=== PATIENT | female | born 1935 | race Caucasian/White ===

== ENCOUNTER → 2016-08-11 | Outpatient (CLI) | payer OTHER ==
[~2016-08-11] MED LIST: AMLO-110 PO; ASPI81TA28 PO; CALC-388 PO; CALC-51 PO; CALC1TAB10; CAPSCRE3 TD; CHOL1000 PO; CHOL100010 PO; CYAN100020 PO; FLUT0.15 NAE; HYDR25TA4 PO; LEVO75TA5 PO; METO50TA17 PO; NEBI10TA2 PO; OMEG10007 PO; POTA20TA16 PO; TRAM-10 PO; TRIA37.5 PO
[2016-08-11 17:29] LABS: URINE APPEARANCE CLEAR (CLEAR); URINE BILIRUBIN NEG (NEG); URINE COLOR YELLOW; URINE EPITHELIAL CELL AUTO >30 /lpf (0-5); URINE NITRITE NEG (NEG); URINE SPECIFIC GRAVITY 1.009 (1.000-1.030); UROBILINOGEN NEG (NEG)
[2016-08-11 17:32] LABS: MANUAL MICROSCOPIC REQUIRED? NO; REVIEW REQ? NO
[2016-08-11 17:37] LABS: BLOOD UREA NITROGEN 23 mg/dl (7-18); BUN/CREATININE RATIO 16.3 (10-20); CARBON DIOXIDE 27 mmol/L (21-32); CHLORIDE 101 mmol/L (98-107); GLUCOSE 91 mg/dl (70-99); MAGNESIUM 1.6 mg/dl (1.8-2.4); PHOSPHORUS 2.7 mg/dl (2.5-4.9); POTASSIUM 3.4 mmol/L (3.5-5.1); SODIUM 139 mmol/L (136-145)
[2016-08-11 17:42] LABS: URINE PROTIEN/CREAT RATIO 0.1 (0-0.2); URINE TOTAL PROTEIN 6.8 mg/dl (0-11.9)
== END | disposition home or self-care (01) ==
LOC: C.LABPBG 11:36
PROVIDERS: ATTEND Internal Medicine Nephrology
DX: I12.9 Hypertensive chronic kidney disease with stage 1 through stage 4 chronic kidney disease, or unspecified chronic kidney disease (principal); N18.3 Chronic kidney disease, stage 3 (moderate); E55.9 Vitamin D deficiency, unspecified; R60.9 Edema, unspecified; E87.6 Hypokalemia

== ENCOUNTER 2016-08-15 16:38 | Inpatient (IN) | payer OTHER ==
[~2016-08-15] VITALS: Ht 157.5 cm; Wt 74.0 kg
[~2016-08-15 16:38] MED LIST changes: -ASPI81TA28 PO; -CALC-388 PO; -CALC1TAB10; -CAPSCRE3 TD; -CHOL1000 PO; -CYAN100020 PO; -FLUT0.15 NAE; -METO50TA17 PO; -POTA20TA16 PO; -TRIA37.5 PO
--- NOTE | 2016-08-15 17:04 | EMERGENCY ROOM VISIT NOTE ---
History Report prepared by Annmarie: Mindi Fernandez Under the Supervision of: Dr. Sammi Conteh M.D. First contact with patient: 16:50 Chief Complaint: CARDIAC ASSESSMENT Stated Complaint: TACHYCARDIA Nursing Triage Summary: pt sent over from PMD office for SVT pt refused ambulance and came by car. pt stated she was having dizziness upon arrival to ED no SVt History of Present Illness The patient is a 81 year old female who presents to the Emergency Room per PCP referral to be evaluated for an episode tachycardia. The patient was at Dr. Lj Hernandez's office this afternoon for a routine appointment. The patient was asymptomatic until she was getting ready to leave his office and developed some dizziness. She had an EKG which revealed possible SVT and she was referred to the ED. Currently, she complains of feeling "fuzzy." She is not on a beta veto. A few days ago she noticed a racing heart rate which resolved after some time of resting. She does not have a history of blood clots or cancer. Denies chest pain, shortness of breath, or other complaints. Per patient's , she has had some post-nasal drip recently and gagged up some mucous the other day but she has not been ill otherwise. She denies recent travel, surgery or immobilization. She is not a smoker. Source of History: patient Onset: this afternoon Position: other (cardiac) Quality: other (tachycardia) Timing: other (persistent) Associated Symptoms: No SOB, No chest pain Note: Other symptoms: dizziness, "fuzzy" Review of Systems See HPI for pertinent positives & negatives. A total of 10 systems reviewed and were otherwise negative. Past Medical & Surgical Medical Problems: (1) Chronic kidney disease (CKD) (2) Hypertension (3) SVT (supraventricular tachycardia) Family History Diabetes mellitus Heart disease Hypertension Kidney disease Social History Smoking Status: Never Smoker Alcohol Use: occasionally Marital Status: Housing Status: lives with significant other Occupation Status: employed Current/Historical Medications Scheduled Aspirin (Aspirin Ec), 81 MG PO DAILY Calcium Carbonate-Vitamin D (Calcium + D3 600-200 mg-Unit), 1 TAB PO BID Capsaicin (Zostrix Arthritis Pain Re), 1 APPLN TD QID Cholecalciferol (Vitamin D3), 1,000 UNITS PO DAILY Cyanocobalamin (Vitamin B12), 1,000 MCG PO DAILY Fish Oil ([place]-3), 1,200 MG PO DAILY Fluticasone Propionate (Nasal) (Flonase Allergy Relief), 2 SPRAYS MISHEL DAILY Levothyroxine Sodium (Levothyroxine Sodium), 1 TAB PO DAILY Metoprolol Tartrate (Metoprolol Tartrate), 50 MG PO BID Scheduled PRN Tramadol (Ultram), 1 TAB PO AC PRN for UNDECIDED Allergies Coded Allergies: Acetaminophen (Verified Adverse Reaction, Intermediate, SHAKING ANDVOMITTING, 08/15/16) Oxycodone (Verified Adverse Reaction, Intermediate, SHAKING ANDVOMITTING, 08/15/16) Propoxyphene (Verified Adverse Reaction, Unknown, STRIP STAMP STRAIGHTENER REACTION, 01/15/16) Physical Exam Vital Signs Date Time Temp Pulse Resp B/P Pulse Ox O2 Delivery O2 Flow Rate FiO2 08/15/16 19:02 81 16 148/92 97 Room Air 08/15/16 18:48 78 18 160/81 97 Room Air 08/15/16 18:00 76 18 157/82 97 Room Air 08/15/16 17:36 75 18 162/94 97 Room Air 08/15/16 17:17 117 18 178/83 98 Room Air 08/15/16 17:16 117 178/83 08/15/16 17:13 171 08/15/16 16:56 112 08/15/16 16:52 36.5 109 20 192/94 97 Physical Exam Vital signs reviewed. General: Well-appearing 81 year old female, in no significant distress. HEENT: No scleral icterus, PERRLA, neck supple. Atraumatic. Cardiovascular: Slightly tachycardic rate and regular rhythm, no extra sounds. Pulmonary: Clear to auscultation bilaterally, normal work of breathing. Abdomen: Soft, nontender, nondistended, positive bowel sounds. Musculoskeletal: Atraumatic, no peripheral edema. Neurologic: Patient awake alert and oriented x 3, full strength in all 4 extremities. Cranial nerves 2 through 12 grossly intact. Skin: Warm, dry, no rash Medical Decision & Procedures ER Provider Diagnostic Interpretation: Radiology results as stated below per my review and radiologist interpretation: CHEST ONE VIEW PORTABLE CLINICAL HISTORY: Supraventricular tachycardia. COMPARISON STUDY: Chest radiograph June 06, 2010. FINDINGS: Lung volumes are normal. There is no pneumothorax or pleural effusion. Linear left basilar opacity is suggestive of atelectasis or scarring. Cardiac size is normal. A hiatal hernia is again noted. There is no evidence of pulmonary edema. Symmetric hazy biapical opacities are likely artifactual. No consolidation is identified. IMPRESSION: 1. No acute cardiopulmonary findings. 2. Moderate sized hiatal hernia. 3. Left basilar opacity suggestive of atelectasis or scarring. Electronically signed by: Lio Cao M.D. 08/15/2016 6:05 PM Dictated Date/Time: 08/15/2016 6:03 PM BILATERAL LOWER EXTREMITY VENOUS DOPPLER CLINICAL HISTORY: Elevated d-dimer. Tachycardia. COMPARISON STUDY: Bilateral lower extremity venous Doppler October 01, 2007. TECHNIQUE: Sonography of the deep venous system of the bilateral lower extremities was performed. Compression and augmentation were evaluated. FINDINGS: The bilateral common femoral, superficial femoral and popliteal veins were compressible. Augmentation was normal. Flow was shown within the deep calf vessels. IMPRESSION: No evidence of deep venous thrombus within the bilateral lower extremities. Electronically signed by: Lio Cao M.D. 08/15/2016 6:49 PM Dictated Date/Time: 08/15/2016 6:48 PM Laboratory Results Test 08/15/16 17:00 08/15/16 17:39 Total Bilirubin 0.5 mg/dl (0.2-1) Direct Bilirubin < 0.1 mg/dl (0-0.2) Aspartate Amino Transf (AST/SGOT) 18 U/L (15-37) Alanine Aminotransferase (ALT/SGPT) 18 U/L (12-78) Alkaline Phosphatase 91 U/L (45-117) Total Protein 8.7 gm/dl (6.4-8.2) Albumin 4.3 gm/dl (3.4-5.0) Bedside D-Dimer > 450 ng/mlFEU (0-450) Bedside Troponin I 0.000 ng/ml (0-0.045) Laboratory results per my review. Medications Administered Medications (Trade) Dose Ordered Sig/Oliver Route Start Time Stop Time Status Last Admin Dose Admin Sodium Chloride (Nss 1000ml) 1,000 ml @ 125 mls/hr Q8H STAT IV 08/15/16 17:10 08/16/16 01:09 DC 08/15/16 17:12 125 MLS/HR Adenosine (Adenosine IV) 6 mg NOW STAT IV 08/15/16 17:10 08/15/16 17:11 DC 08/15/16 17:12 6 MG Metoprolol Tartrate (Lopressor Iv) 5 mg NOW STAT IV 08/15/16 17:10 08/15/16 17:11 DC 08/15/16 17:16 5 MG Potassium Chloride 20 meq 20 meq NOW STAT IV 08/15/16 18:07 08/15/16 18:08 DC 08/15/16 19:01 20 MEQ Potassium Chloride/Sodium Chloride (Nss + 20meq KCl 1000ml) 1,000 ml @ 50 mls/hr Q20H IV 08/15/16 19:14 08/17/16 12:27 DC 08/16/16 00:36 50 MLS/HR ECG Indication: palpitations Rate (beats per minute): 112 Rhythm: sinus tachycardia Findings: PAC, other (poor quality baseline, nonspecific ST segment changes) Change: Repeat EKG: SVT, marked ST abnormality particularly in the anterolateral leads, SVT is new compared to initial in-hospital EKG. ED Course 1652: Past medical records reviewed. The patient was evaluated in room B1. A complete history and physical examination was performed. 1710: I reassessed the patient. Ordered Lopressor 5 mg IV, NSS 1000 ml @ 125 mls /hr IV, Adenosine 6 mg IV. 1802: Upon reevaluation, the patient is resting comfortably. I discussed laboratory and radiographic results with her. She verbalized agreement of the treatment plan. 1805: I discussed the case with Dr. Kennedy - [facility] Hospitalist. The patient will be evaluated for further management. 1807: Ordered Potassium Chloride 20 meq IV. Medical Decision Differential diagnosis: Etiologies such as premature contractions, electrolyte abnormality, cardiac dysrhythmia, thyroid dysfunction, pulmonary embolism, infection, gastrointestinal, as well as others were entertained. This patient was evaluated and appeared to be in no significant distress at the time of my evaluation. The patient was sent over with EKG from her primary care physician's office with an SVT. Currently the patient is in a sinus tachycardia. Laboratory work was obtained and the patient was placed on the manager floral. She was hydrated with normal saline solution. The patient converted to an SVT and required IV adenosine 6 mg. Subsequently she was given 5 mg of IV metoprolol to help stabilize the rhythm. The patient remained in normal sinus rhythm. She is found have an elevated d-dimer but also has an elevated creatinine. The patient's vital signs are stable at this time. She will be evaluated by the hospitalist service for admission and further management. She is aware of the plan and agrees. Consults Time Called: 1800 Consulting Physician: Dr. Brent Arreguin [facility] [place] [facility] Hospitalist Returned Call: 1805 I discussed the case with him. The patient will be evaluated for further management. Impression Primary Impression: SVT (supraventricular tachycardia) Additional Impressions: Elevated d-dimer Renal insufficiency Critical Care I have personally spent greater than 30 minutes of critical care time in the direct management of this patient. This includes bedside care, interpretation of diagnostic studies, and testing, discussion with consultants, patient, and family members, and other required patient management activities. This 30 minutes is in excess of all separately billable procedures. Scribe Attestation The scribe's documentation has been prepared under my direction and personally reviewed by me in its entirety. I confirm that the note above accurately reflects all work, treatment, procedures, and medical decision making performed by me. Departure Information Dispostion Being Evaluated By Hospitalist Prescriptions Metoprolol Tartrate (Metoprolol Tartrate) 50 Mg Tab 50 MG PO BID for 30 Days, #60 TAB Prov: Munira Tran, DO 08/17/16 Referrals Lj Hernandez M.D. (PCP) Patient Instructions My [facility] Problem Qualifiers
[2016-08-15] MEDS ORDERED: ADENOSINE IV SOLN 3 MG/ML 2 ML VIAL IV ONE (17:09)
[2016-08-15] MEDS ORDERED: SODIUM CHLORIDE 0.9% 1000ML 1,000 ML IV STA (17:10)
[2016-08-15] MEDS ORDERED: ADENOSINE IV SOLN 3 MG/ML 2 ML VIAL IV STA (17:10)
[2016-08-15] MEDS ORDERED: METOPROLOL TARTRATE 1 MG/ML VIAL IV STA (17:10)
[2016-08-15] MEDS ORDERED: METOPROLOL TARTRATE 1 MG/ML VIAL ONE (17:11)
[2016-08-15 17:16] LABS: BASO % 0.3 %; BASO ABS # 0.02 K/uL (0-0.2); COMPLETE YES; EOS % 1.9 %; HEMATOCRIT 41.2 % (37-47); IG% 0.2 %; MEAN CELL VOLUME 90.4 fL (80-100); MEAN CORPUSCULAR HEMOGLOBIN 32.5 pg (25-34); MEAN CORPUSCULAR HGB CONC 35.9 g/dl (32-36); MEAN PLATELET VOLUME 9.8 fL (7.4-10.4); MONO % 8.3 %; NEUT % 46.3 %; PLATELET COUNT 293 K/uL (130-400); RED BLOOD COUNT 4.56 M/uL (4.2-5.4); WHITE BLOOD COUNT 5.81 K/uL (4.8-10.8)
[2016-08-15] MEDS ORDERED: ASPI81TA28 PO ×2 (17:16)
[2016-08-15] MEDS ORDERED: CALC1TAB10 (17:20)
[2016-08-15] MEDS ORDERED: CALC-388 PO ×2 (17:20)
[2016-08-15] MEDS ORDERED: CHOL1000 PO ×2 (17:22)
[2016-08-15] MEDS ORDERED: FLUT0.15 NAE ×2 (17:24)
[2016-08-15] MEDS ORDERED: POTA20TA16 PO (17:25)
[2016-08-15] MEDS ORDERED: TRIA37.5 PO (17:28)
[2016-08-15] MEDS ORDERED: CYAN100020 PO ×2 (17:29)
[2016-08-15] MEDS ORDERED: CAPSCRE3 TD ×2 (17:32)
[2016-08-15 17:42] LABS: ALT/SGPT 18 U/L (12-78); AST/SGOT 18 U/L (15-37); BLOOD UREA NITROGEN 27 mg/dl (7-18); BUN/CREATININE RATIO 17.9 (10-20); CALCIUM 10.1 mg/dl (8.5-10.1); CARBON DIOXIDE 23 mmol/L (21-32); CHLORIDE 103 mmol/L (98-107); GLUCOSE 100 mg/dl (70-99); POTASSIUM 3.4 mmol/L (3.5-5.1); SODIUM 140 mmol/L (136-145)
[2016-08-15 17:46] LABS: ALKALINE PHOSPHATASE 91 U/L (45-117); CKMB/CK RATIO 1.8 (0-3.0)
--- NOTE | 2016-08-15 18:06 | DIAGNOSTIC IMAGING REPORT ---
CHEST ONE VIEW PORTABLE CLINICAL HISTORY: Supraventricular tachycardia. COMPARISON STUDY: Chest radiograph June 06, 2010. FINDINGS: Lung volumes are normal. There is no pneumothorax or pleural effusion. Linear left basilar opacity is suggestive of atelectasis or scarring. Cardiac size is normal. A hiatal hernia is again noted. There is no evidence of pulmonary edema. Symmetric hazy biapical opacities are likely artifactual. No consolidation is identified. IMPRESSION: 1. No acute cardiopulmonary findings. 2. Moderate sized hiatal hernia. 3. Left basilar opacity suggestive of atelectasis or scarring. Electronically signed by: Lio Cao M.D. 08/15/2016 6:05 PM Dictated Date/Time: 08/15/2016 6:03 PM
[2016-08-15] MEDS ORDERED: POTASSIUM CHLORIDE 10 MEQ / 100ML WTR IV STA (18:07)
--- NOTE | 2016-08-15 18:50 | DIAGNOSTIC IMAGING REPORT ---
BILATERAL LOWER EXTREMITY VENOUS DOPPLER CLINICAL HISTORY: Elevated d-dimer. Tachycardia. COMPARISON STUDY: Bilateral lower extremity venous Doppler October 01, 2007. TECHNIQUE: Sonography of the deep venous system of the bilateral lower extremities was performed. Compression and augmentation were evaluated. FINDINGS: The bilateral common femoral, superficial femoral and popliteal veins were compressible. Augmentation was normal. Flow was shown within the deep calf vessels. IMPRESSION: No evidence of deep venous thrombus within the bilateral lower extremities. Electronically signed by: Lio Cao M.D. 08/15/2016 6:49 PM Dictated Date/Time: 08/15/2016 6:48 PM
[2016-08-15] MEDS ORDERED: ALUMINUM/MAGNESIUM/SIMETH (MAALOX MAX) 30 ML UDC PO PRN (19:15)
[2016-08-15] MEDS ORDERED: ONDANSETRON INJ 2 MG/ML 2 ML VIAL IV PRN (19:15)
[2016-08-15] MEDS ORDERED: ZOLPIDEM TARTRATE 5 MG TAB PO PRN (19:15)
[2016-08-15] MEDS ORDERED: NITROGLYCERIN 0.4 MG SL PER TAB CHARGE SL PRN (19:15)
[2016-08-15] MEDS ORDERED: MAGNESIUM HYDROXIDE SUSP 30 ML UDC PO PRN (19:15)
[2016-08-15] MEDS ORDERED: MoRPHine SULFATE 2 MG/ML CARP IV PRN (19:15)
[2016-08-15] MEDS ORDERED: PROMETHAZINE HCL INJ 12.5 MG in SODIUM CHLORIDE 0.9% 50ML 50 ML IV PRN (19:15)
[2016-08-15] MEDS ORDERED: LORAZEPAM 2 MG/ML 1 ML VIAL IV PRN (19:15)
[2016-08-15] MEDS ORDERED: DiphenhydrAMINE HCL 50 MG/ML VIAL IV PRN (19:15)
[2016-08-15] MEDS ORDERED: TRAMADOL HCL 50 MG TAB PO PRN (19:15)
[2016-08-15] MEDS ORDERED: METOPROLOL TARTRATE 50 MG TAB PO STA (19:20)
[2016-08-15] MEDS ORDERED: METOPROLOL TARTRATE 1 MG/ML VIAL IV PRN (19:30)
[2016-08-15 21:19] LABS: CKMB/CK RATIO 1.2 (0-3.0)
[2016-08-15 22:37] VITALS: BP 142/80; PULSE 72; TEMP 36.4; O2SAT 97; Ht 157.5 cm; Wt 74.0 kg
[2016-08-16] VITALS (9 sets, daily range): BP systolic 119–187; BP diastolic 61–83; PULSE 55–80; TEMP 36.3–37.1; O2SAT 93–98
[2016-08-16] MEDS: POTASSIUM CHLORIDE 20 MEQ TABCR PO SCH ×3 (00:33→21:05)
[2016-08-16] MEDS: DOCUSATE SODIUM 100 MG CAP PO SCH ×3 (00:34→21:05)
[2016-08-16] MEDS: NSS + 20MEQ KCL 1000ML 1,000 ML IV SCH (00:36)
--- NOTE | 2016-08-16 02:02 | History and Physical ---
History & Physical Date & Time of Service: Aug 16, 2016 at 01:54 Chief Complaint: Supraventricular Tachycardia Primary Care Physician: Lj Hernandez M.D. History of Present Illness Source: patient, spouse The patient is an 81-year-old female who presents emergency department after being referred from PCPs office due to an episode of tachycardia noted a routine office appointment today. She felt dizzy as she was leaving the office today, and an EKG showed possible SVT. She had noticed a few days ago that her heart was racing which ultimately resolved after time with rest. She's had no previous occurrence of these symptoms prior to these past few days. Past Medical/Surgical History Medical Problems: (1) Chronic kidney disease (CKD) Status: Chronic (2) Hypertension Status: Chronic Family History Diabetes mellitus Heart disease Hypertension Kidney disease Social History Smoking Status: Never Smoker Smokeless Tobacco Use: No Alcohol Use: none Drug Use: none Marital Status: Housing status: lives with family Occupational Status: employed Immunizations History of Influenza Vaccine: N/A History of Tetanus Vaccine?: No History of Pneumococcal: Yes History of Hepatitis B Vaccine: No Multi-Drug Resistant Organisms History of MDRO: No Allergies Coded Allergies: Acetaminophen (Verified Adverse Reaction, Intermediate, SHAKING ANDVOMITTING, 08/15/16) Oxycodone (Verified Adverse Reaction, Intermediate, SHAKING ANDVOMITTING, 08/15/16) Propoxyphene (Verified Adverse Reaction, Unknown, TRANSPORTATION SUPERVISOR REACTION, 01/15/16) Home Medications Scheduled Amlodipine (Norvasc), 5 MG PO DAILY Aspirin (Aspirin Ec), 81 MG PO DAILY Calcium Carbonate-Vitamin D (Calcium + D3 600-200 mg-Unit), 1 TAB PO BID Capsaicin (Zostrix Arthritis Pain Re), 1 APPLN TD QID Cholecalciferol (Vitamin D3), 1,000 UNITS PO DAILY Cyanocobalamin (Vitamin B12), 1,000 MCG PO DAILY Fish Oil ([place]-3), 1,200 MG PO DAILY Fluticasone Propionate (Nasal) (Flonase Allergy Relief), 2 SPRAYS MISHEL DAILY Levothyroxine Sodium (Levothyroxine Sodium), 1 TAB PO DAILY Potassium Ext Rel (Klor-Con), 20 MEQ PO DAILY Triamterene/Hctz (Dyazide 37.5MG/25MG), 1 CAP PO QAM Scheduled PRN Tramadol (Ultram), 1 TAB PO AC PRN for UNDECIDED Review of Systems The patient denies chest pain, cough, lower extremity swelling, vision change, hearing change, sore throat, fevers, chills, sweats, weight change, fatigue, nausea, vomiting, abdominal pain, pelvic pain, blood in urine or stool, dysuria , urinary frequency or urgency, memory loss, rash, abnormal bruising or bleeding , imbalance, focal or generalized weakness, numbness or tingling in arms or legs , arthralgias or myalgias, back or neck pain, night sweats. The review of systems is otherwise negative other than for that already noted above, and at least 10 systems have been reviewed. Physical Exam Vital Signs Date Time Temp Pulse Resp B/P Pulse Ox O2 Delivery O2 Flow Rate FiO2 08/16/16 00:33 36.7 80 18 160/83 96 161/78 08/16/16 00:00 97 Room Air 08/15/16 22:37 36.4 72 18 142/80 97 Room Air 08/15/16 21:29 79 16 130/54 99 08/15/16 20:04 81 16 119/84 97 Room Air 08/15/16 19:02 81 16 148/92 97 Room Air 08/15/16 18:48 78 18 160/81 97 Room Air 08/15/16 18:00 76 18 157/82 97 Room Air 08/15/16 17:36 75 18 162/94 97 Room Air 08/15/16 17:17 117 18 178/83 98 Room Air 08/15/16 17:16 117 178/83 08/15/16 17:13 171 08/15/16 16:56 112 08/15/16 16:52 36.5 109 20 192/94 97 The patient is awake, well-developed and adequately nourished, alert and oriented 3, normocephalic and atraumatic, lying in bed and in no acute distress. HEENT--PERRL, EOMI, mucous membranes and oropharynx normal. Neck--supple, no JVD or bruits, thyroid normal, trachea midline, no adenopathy. Heart--normal S1 and S2, no extra beats, no murmurs, rubs or gallops. Lungs--clear bilaterally with good air movement, no respiratory distress, no accessory muscle use. Abdomen--normal bowel sounds and soft, nontender and nondistended, no hernias or masses, no organomegaly. Extremities--no cyanosis, clubbing or edema. There are good distal pulses b/l. Dermatologic--normal skin turgor, normal color, warm and dry, no abnormal lymph nodes, no rash. Neurologic--cranial nerves II through XII grossly intact, motor and sensory examination normal. Rheumatologic--normal range of motion, nontender, muscles and joints. Psychiatric--normal affect. Diagnostics Laboratory Results Results Past 24 Hours Test 08/15/16 17:00 08/15/16 17:39 08/15/16 20:50 Range/Units White Blood Count 5.81 4.8-10.8 K/uL Red Blood Count 4.56 4.2-5.4 M/uL Hemoglobin 14.8 12.0-16.0 g/dL Hematocrit 41.2 37-47 % Mean Corpuscular Volume 90.4 80-100 fL Mean Corpuscular Hemoglobin 32.5 25-34 pg Mean Corpuscular Hemoglobin Concent 35.9 32-36 g/dl Platelet Count 293 130-400 K/uL Mean Platelet Volume 9.8 7.4-10.4 fL Neutrophils (%) (Auto) 46.3 % Lymphocytes (%) (Auto) 43.0 % Monocytes (%) (Auto) 8.3 % Eosinophils (%) (Auto) 1.9 % Basophils (%) (Auto) 0.3 % Neutrophils # (Auto) 2.69 1.4-6.5 K/uL Lymphocytes # (Auto) 2.50 1.2-3.4 K/uL Monocytes # (Auto) 0.48 0.11-0.59 K/uL Eosinophils # (Auto) 0.11 0-0.5 K/uL Basophils # (Auto) 0.02 0-0.2 K/uL RDW Standard Deviation 42.2 36.4-46.3 fL RDW Coefficient of Variation 12.8 11.5-14.5 % Immature Granulocyte % (Auto) 0.2 % Immature Granulocyte # (Auto) 0.01 0.00-0.02 K/uL Sodium Level 140 136-145 mmol/L Potassium Level 3.4 3.5-5.1 mmol/L Chloride Level 103 98-107 mmol/L Carbon Dioxide Level 23 21-32 mmol/L Anion Gap 14.0 3-11 mmol/L Blood Urea Nitrogen 27 7-18 mg/dl Creatinine 1.50 0.60-1.20 mg/dl Est Creatinine Clear Calc Drug Dose 28.7 ml/min Estimated GFR () 37.7 Estimated GFR (Non- 32.6 BUN/Creatinine Ratio 17.9 10-20 Random Glucose 100 70-99 mg/dl Calcium Level 10.1 8.5-10.1 mg/dl Magnesium Level 2.0 1.8-2.4 mg/dl Total Bilirubin 0.5 0.2-1 mg/dl Direct Bilirubin < 0.1 0-0.2 mg/dl Aspartate Amino Transf (AST/SGOT) 18 15-37 U/L Alanine Aminotransferase (ALT/SGPT) 18 12-78 U/L Alkaline Phosphatase 91 45-117 U/L Total Creatine Kinase 60 60 26-192 U/L Creatine Kinase MB 1.1 0.7 0.5-3.6 ng/ml Creatine Kinase MB Ratio 1.8 1.2 0-3.0 Total Protein 8.7 6.4-8.2 gm/dl Albumin 4.3 3.4-5.0 gm/dl Bedside D-Dimer > 450 0-450 ng/mlFEU Bedside Troponin I 0.000 0-0.045 ng/ml Troponin I < 0.015 0-0.045 ng/ml Diagnostic Radiology Patient Name: JUNG DEAL Unit Number: [id number] Dictated: 08/15/161802 Transcribed: 08/15/161802 Printed Date/Time: [~ rep prt dt]/[~ rep prt tm] [~ rep ct labl] - [~ rep ct ivnm] [facility] [place] [address] Dictated: 08/15/161802 Transcribed: 08/15/161802 Printed Date/Time: [~ rep prt dt]/[~ rep prt tm] [~ rep ct labl] - [~ rep ct ivnm] [~ rep ct add3]] CHEST ONE VIEW PORTABLE CLINICAL HISTORY: Supraventricular tachycardia. COMPARISON STUDY: Chest radiograph June 06, 2010. FINDINGS: Lung volumes are normal. There is no pneumothorax or pleural effusion. Linear left basilar opacity is suggestive of atelectasis or scarring. Cardiac size is normal. A hiatal hernia is again noted. There is no evidence of pulmonary edema. Symmetric hazy biapical opacities are likely artifactual. No consolidation is identified. IMPRESSION: 1. No acute cardiopulmonary findings. 2. Moderate sized hiatal hernia. 3. Left basilar opacity suggestive of atelectasis or scarring. Electronically signed by: Lio Cao M.D. 08/15/2016 6:05 PM Dictated Date/Time: 08/15/2016 6:03 PM The status of this report is Signed. Draft = Not yet reviewed or approved by Radiologist. Signed = Reviewed and approved by Radiologist. <AttendingPhy></AttendingPhy> <FamilyPhy>Lj Hernandez M.D.</FamilyPhy> < PrimaryPhy>Lj Hernandez M.D.</PrimaryPhy> <UnitNumber>[id number]</UnitNumber > <VisitNumber>[id number]</VisitNumber> <PatientName>JUNG DEAL</PatientName > <DateOfBirth>1935</DateOfBirth> <Location>C.EDB</Location> <ServiceDate> 08/15/16</ServiceDate> <MNE>ESINDI</MNE> <OrderingPhy>Sammi Conteh M.D. </OrderingPhy> <OrderingPhyMNE>f rep ord dr thompson</OrderingPhyMNE> < DictatingPhyMNE>f rep dict dr thompson</DictatingPhyMNE> <CCListMNE>f rep ct donna</ CCListMNE> <AdmittingPhyMNE>f pt admit dr thompson</AdmittingPhyMNE> <AttendingPhyMNE >f pt attend dr thompson</AttendingPhyMNE> <ConsultingPhyMNE>f pt consult dr thompson</ConsultingPhyMNE> <FamilyPhyMNE>f pt fam dr thompson</FamilyPhyMNE> <OtherPhyMNE>f pt other dr thompson</OtherPhyMNE> < PrimaryPhyMNE>f pt prim care dr thompson</PrimaryPhyMNE> <ReferringPhyMNE>f pt referring dr thompson</ReferringPhyMNE> Patient Name: JUNG DEAL Unit Number: [id number] Dictated: 08/15/161847 Transcribed: 08/15/161847 JA Printed Date/Time: [~ rep prt dt]/[~ rep prt tm] [~ rep ct labl] - [~ rep ct ivnm] [facility] Radiology Department [place] [id number] Dictated: 08/15/161847 Transcribed: 08/15/161847 JA Printed Date/Time: [~ rep prt dt]/[~ rep prt tm] [~ rep ct labl] - [~ rep ct ivnm] [~ rep ct add3]] BILATERAL LOWER EXTREMITY VENOUS DOPPLER CLINICAL HISTORY: Elevated d-dimer. Tachycardia. COMPARISON STUDY: Bilateral lower extremity venous Doppler October 01, 2007. TECHNIQUE: Sonography of the deep venous system of the bilateral lower extremities was performed. Compression and augmentation were evaluated. FINDINGS: The bilateral common femoral, superficial femoral and popliteal veins were compressible. Augmentation was normal. Flow was shown within the deep calf vessels. IMPRESSION: No evidence of deep venous thrombus within the bilateral lower extremities. Electronically signed by: Lio Cao M.D. 08/15/2016 6:49 PM Dictated Date/Time: 08/15/2016 6:48 PM The status of this report is Signed. Draft = Not yet reviewed or approved by Radiologist. Signed = Reviewed and approved by Radiologist. <AttendingPhy></AttendingPhy> <FamilyPhy>Lj Hernandez M.D.</FamilyPhy> < PrimaryPhy>jL Hernandez M.D.</PrimaryPhy> <UnitNumber>[id number]</UnitNumber > <VisitNumber>[id number]</VisitNumber> <PatientName>JUNG DEAL</PatientName > <DateOfBirth>1935</DateOfBirth> <Location>C.EDB</Location> <ServiceDate> 08/15/16</ServiceDate> <MNE>ESINDI</MNE> <OrderingPhy>Sammi Conteh M.D. </OrderingPhy> <OrderingPhyMNE>f rep ord dr thompson</OrderingPhyMNE> < DictatingPhyMNE>f rep dict dr thompson</DictatingPhyMNE> <CCListMNE>f rep ct jennifere</ CCListMNE> <AdmittingPhyMNE>f pt admit dr thompson</AdmittingPhyMNE> <AttendingPhyMNE >f pt attend dr thompson</AttendingPhyMNE> <ConsultingPhyMNE>f pt consult dr thompson</ConsultingPhyMNE> <FamilyPhyMNE>f pt fam dr thompson</FamilyPhyMNE> <OtherPhyMNE>f pt other dr thompson</OtherPhyMNE> < PrimaryPhyMNE>f pt prim care dr thompson</PrimaryPhyMNE> <ReferringPhyMNE>f pt referring dr thompson</ReferringPhyMNE> EKG EKG shows sinus tachycardia 112 with a few PACs, but no acute ST-T changes Impression Assessment and Plan SVT--the patient did have an episode while emergency department and received adenosine 6 mg IV then metoprolol 5 mg IV with return to normal sinus rhythm. She'll be admitted to the telemetry unit, for serial cardiac enzymes, cardiac rhythm monitoring and a 2-D echocardiogram with Dopplers. We'll place her on metoprolol tartrate 25 mg by mouth twice a day with hold parameters, and have Lopressor 5 mg IV every 4 hours when necessary breakthrough heart rate greater than 110. Consult cardiology to see patient in a.m. We will hold amlodipine 5 mg by mouth daily, and triamterene/ HCTZ 37.5/25 one by mouth daily. Of note her potassium was mildly low at 3.4, likely secondary to HCTZ, and this will be replaced both orally and IV. Hypothyroidism--continue levothyroxin at current dosing, and we'll check a TSH level. Allergic rhinitis--continue Flonase allergy relief 2 sprays each nostril daily. Nutraceuticals--continue calcium with D, vitamin D3, vitamin B-12, fish oil. Level of Care Telemetry Advanced Directives Existing Advance Directive: No Existing Living Will: No Existing Power of Library Aide: No Resuscitation Status FULL RESUSCITATION VTE Prophylaxis VTE Risk Assessment Done? Y/N: Yes Risk Level: Moderate Given or contraindicated: SCD's Social Service Consult None Apply
[2016-08-16 03:40] LABS: BASO % 0.5 %; BASO ABS # 0.03 K/uL (0-0.2); COMPLETE YES; EOS % 2.7 %; HEMATOCRIT 35.9 % (37-47); IG% 0.2 %; LYMPH % 46.9 %; LYMPH ABS # 2.73 K/uL (1.2-3.4); MEAN CELL VOLUME 92.8 fL (80-100); MEAN CORPUSCULAR HGB CONC 34.5 g/dl (32-36); MEAN PLATELET VOLUME 10.1 fL (7.4-10.4); MONO % 10.3 %; NEUT % 39.4 %; PLATELET COUNT 255 K/uL (130-400); RED BLOOD COUNT 3.87 M/uL (4.2-5.4); WHITE BLOOD COUNT 5.82 K/uL (4.8-10.8)
[2016-08-16 03:52] LABS: BLOOD UREA NITROGEN 23 mg/dl (7-18); BUN/CREATININE RATIO 19.1 (10-20); CARBON DIOXIDE 26 mmol/L (21-32); CHLORIDE 110 mmol/L (98-107); GLUCOSE 83 mg/dl (70-99); MAGNESIUM 1.9 mg/dl (1.8-2.4); POTASSIUM 3.7 mmol/L (3.5-5.1); SODIUM 144 mmol/L (136-145)
[2016-08-16 03:57] LABS: CKMB/CK RATIO 2.4 (0-3.0)
[2016-08-16] MEDS: LEVOTHYROXINE 75 MCG TAB PO SCH (05:30)
[2016-08-16] MEDS: FLUTICASONE PROPIONATE NA SPR 16 GM BTL NAE SCH (09:00)
[2016-08-16] MEDS: ASPIRIN 81 MG ECTAB PO SCH (09:06)
[2016-08-16] MEDS: OMEGA-3 (PURIFIED FISH OIL) 1 GM CAP PO SCH (09:06)
[2016-08-16] MEDS: METOPROLOL TARTRATE 50 MG TAB PO SCH ×2 (09:06→21:05)
[2016-08-16] MEDS: CHOLECALCIFEROL 1000 INTER.UNIT TAB PO SCH (09:06)
[2016-08-16] MEDS: CALCIUM 600MG + VIT D 400 IU TAB PO SCH ×2 (09:06→21:05)
[2016-08-16] MEDS: CYANOCOBALAMIN 500 MCG TAB (VIT B-12) PO SCH (09:07)
--- NOTE | 2016-08-16 09:15 | Clinical Documentation Query ---
Dr. RAMOS POWER : CLINICAL DOCUMENTATION QUERY Patient is an 81 year old female admitted with SVT. Documentation includes a history of CKD, not otherwise specified. Estimated GFR range from 15 to present of 33-54 ml/min. Please explicitly specify the stage of CKD in your patient. [facility] recognizes criteria as set forth by the NKF as provided below. Thank you. In your clinical opinion is this patient being managed for: ( ) Chronic kidney disease, stage 3 ( ) Other explanation of clinical findings (Please Explain) ( ) Unable to determine (Please Define) ( ) Need to Discuss ( x ) Not Agree The medical record reflects the following clinical findings, treatment, and risk factors. Clinical Indicators: As above Treatment: Monitoring serial chemistries Risk Factors: Age, hypertension Chronic Kidney Disease (CKD), stages 1-5. Documenting the stage of CKD will improve data integrity and will help clarify vague terms such as "renal insufficiency" or "chronic renal failure." The stages of CKD according to the [employer] are as follows: Stage I: GFR >90 Stage II: GFR 60-89 Stage III: GFR 30-59 Stage IV: GFR 15-29 Stage V: GFR <15 Please clarify and document your clinical opinion in the progress notes and discharge summary. Terms such as "probable", "suspected", "likely", "questionable", "possible", or "still to be ruled out" are acceptable. IF IN AGREEMENT, YOU MUST DOCUMENT ABOVE DIAGNOSTIC STATEMENT IN DAILY PROGRESS NOTES AND DISCHARGE SUMMARY. This document is not part of the patient's record. Thank You, Josemanuel Barnes, RN [phone]
--- NOTE | 2016-08-16 09:49 | Cardiology Consultation ---
Cardiology Consultation Date of Consultation: Aug 16, 2016. Requesting Physician: Dr. Kennedy Reason for Consultation: SVT Pt evaluation today including: conversation w/ patient, conversation w/ family , physical exam, lab review, review of studies, review of inpatient medication list History of Present Illness This is a very pleasant 81-year-old woman with a history of hypertension, hypothyroidism on thyroid replacement, chronic kidney disease and arthritis. From the cardiovascular standpoint however she does not have any significant history to my knowledge. The first time that she was aware of her arrhythmia was 2 days before admission when during the night she awoke not feeling quite right, feeling a little bit dizzy and noticing that her heart rate was racing. That resolved after several hours, and she was in Dr. Lj Hernandez's office for a routine visit when she developed a tachycardia again. The symptoms were the same, she felt somewhat dizzy, possibly was not speaking clearly according to what her told her, and she was observed to be in a supraventricular tachycardia at 160 bpm. She was referred to the emergency room. 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 From the monitor strips emergency room the arrhythmia started and stopped several times, there is a notation that she received adenosine 6 mg intravenously but I'm not sure exactly when or wheather that triggered one of the terminations. She was quite aware of the arrhythmia, although it sounds as though it took her some time to become aware of it, and she has no recollection of feeling that way before. It is possible that she does not recall having it and may have had shorter episodes but we've no documentation of that and she has no memory of it. She did not of chest discomfort and did not have significant shortness of breath with that. At the time of evaluation she is comfortable and has no complaints. Past Medical/Surgical History Past medical history: Hypertension Chronic kidney disease Osteoarthritis Family History Diabetes mellitus Heart disease Hypertension Kidney disease Social History Smoking Status: Never Smoker History of Alcohol Use: Yes (occasionally) Review of Systems Constitutional: No fever, No weakness, No weight loss Respiratory: No cough, No dyspnea on exertion, No shortness of breath, No wheezing Cardiac: + palpitations, + see HPI, No PND, No chest pain, No edema, No orthopnea Abdomen: No GI bleeding, No diarrhea, No nausea, No pain, No vomiting Female : No problem reported Neurologic: No balance problems, No numbness/tingling, No paralysis, No weakness Heme: No abnormal bleeding/bruising, No clotting problems Endo: No fatigue Skin: No problem reported All Other Systems: Reviewed and Negative Allergies Coded Allergies: Acetaminophen (Verified Adverse Reaction, Intermediate, SHAKING ANDVOMITTING, 08/15/16) Oxycodone (Verified Adverse Reaction, Intermediate, SHAKING ANDVOMITTING, 08/15/16) Propoxyphene (Verified Adverse Reaction, Unknown, EDITOR INDEX REACTION, 01/15/16) Medications Current Inpatient Medications Medications (Trade) Dose Ordered Sig/Oliver Route Start Time Stop Time Status Last Admin Dose Admin Potassium Chloride/Sodium Chloride (Nss + 20meq KCl 1000ml) 1,000 ml @ 50 mls/hr Q20H IV 08/15/16 19:14 09/14/16 19:13 08/16/16 00:36 50 MLS/HR Nitroglycerin (Nitrostat Tab) 0.4 mg UD PRN SL 08/15/16 19:15 09/14/16 19:14 Aspirin (Ecotrin Tab) 81 mg DAILY PO 08/16/16 09:00 09/15/16 08:59 08/16/16 09:06 81 MG Cholecalciferol (Vitamin D Tab) 1,000 inter.unit DAILY PO 08/16/16 09:00 09/15/16 08:59 08/16/16 09:06 1,000 INTER.UNIT Fish Oil (Hammond-3 (Purified Fish Oil) Cap) 1 gm DAILY PO 08/16/16 09:00 09/15/16 08:59 08/16/16 09:06 1 GM Fluticasone Propionate (Flonase Nasal [place]) 2 sprays DAILY MISHEL 08/16/16 09:00 09/15/16 08:59 Levothyroxine Sodium (Synthroid Tab) 75 mcg DAILYBB PO 08/16/16 06:00 09/15/16 05:59 08/16/16 05:30 75 MCG Potassium Chloride (Klor-Con Tab) 20 meq BID PO 08/15/16 21:00 09/14/16 20:59 08/16/16 09:06 20 MEQ Tramadol HCl (Ultram Tab) 50 mg Q4H PRN PO 08/15/16 19:15 09/14/16 19:14 Calcium/Vitamin D (Caltrate Plus Tab) 1 tab BID PO 08/16/16 09:00 09/15/16 08:59 08/16/16 09:06 1 TAB Cyanocobalamin (Vitamin B-12 Tab) 1,000 mcg QAM PO 08/16/16 09:00 09/15/16 08:59 08/16/16 09:07 1,000 MCG Lorazepam (Ativan Inj) 0.5 mg Q4H PRN IV 08/15/16 19:15 09/14/16 19:14 Magnesium Hydroxide (Milk Of Magnesia Susp) 30 ml Q6H PRN PO 08/15/16 19:15 09/14/16 19:14 Diphenhydramine HCl (Benadryl Inj) 25 mg Q4H PRN IV 08/15/16 19:15 09/14/16 19:14 Al Hydrox/Mg Hydrox/ Simethicone 15 ml 15 ml Q4H PRN PO 08/15/16 19:15 09/14/16 19:14 Promethazine HCl/ Sodium Chloride (Phenergan Inj/ Nss 50ml) 50.5 ml @ 202 mls/hr Q4H PRN IV 08/15/16 19:15 09/14/16 19:14 Zolpidem Tartrate (Ambien Tab) 5 mg HSZ PRN PO 08/15/16 19:15 09/14/16 19:14 Ondansetron HCl (Zofran Inj) 4 mg Q6H PRN IV 08/15/16 19:15 09/14/16 19:14 Docusate Sodium (coLACE CAP) 100 mg BID PO 08/15/16 21:00 09/14/16 20:59 08/16/16 09:06 100 MG Morphine Sulfate (MoRPHine SULFATE INJ) 2 mg Q2H PRN IV 08/15/16 19:15 08/29/16 19:14 Metoprolol Tartrate (Lopressor Tab) 50 mg BID PO 08/16/16 09:00 09/15/16 08:59 08/16/16 09:06 50 MG Metoprolol Tartrate (Lopressor Iv) 5 mg Q4 PRN IV 08/15/16 19:30 09/14/16 19:29 Physical Exam Vital Signs Past 12 Hours Date Time Temp Pulse Resp B/P Pulse Ox O2 Delivery O2 Flow Rate FiO2 08/16/16 04:00 97 Room Air 08/16/16 03:57 36.9 57 18 119/61 97 Room Air 08/16/16 00:33 36.7 80 18 160/83 96 161/78 08/16/16 00:00 97 Room Air 08/15/16 22:37 36.4 72 18 142/80 97 Room Air Constitutional: General Apperance: heathly-appearing Level of Distress: NAD Psychiatric: Mental Status: active & alert Head: normocephalic Eyes: EOM: EOMI ENMT: normal ENT inspection, hearing grossly normal Neck: supple, no masses Lungs: Respiratory effort: no dyspnea, good air movement Auscultation: breath sounds normal, no wheezing Cardiovascular: Heart Auscultation: RRR, no murmurs, no rubs, no gallops Peripheral Pulses: Bruits: none appreciated Abdomen: Bowel Sounds: normal Inspection & Palpation: soft, no tenderness, guarding & rebound, no masses Musculoskeletal: normal strength (5/5 throughout) Extremities: no edema Neurologic: Cranial Nerves: grossly intact Sensation: grossly intact Data Laboratory Results: Last 24 Hours Test 08/15/16 17:00 08/15/16 17:39 08/15/16 20:50 08/16/16 03:24 White Blood Count 5.81 K/uL 5.82 K/uL Red Blood Count 4.56 M/uL 3.87 M/uL Hemoglobin 14.8 g/dL 12.4 g/dL Hematocrit 41.2 % 35.9 % Mean Corpuscular Volume 90.4 fL 92.8 fL Mean Corpuscular Hemoglobin 32.5 pg 32.0 pg Mean Corpuscular Hemoglobin Concent 35.9 g/dl 34.5 g/dl Platelet Count 293 K/uL 255 K/uL Mean Platelet Volume 9.8 fL 10.1 fL Neutrophils (%) (Auto) 46.3 % 39.4 % Lymphocytes (%) (Auto) 43.0 % 46.9 % Monocytes (%) (Auto) 8.3 % 10.3 % Eosinophils (%) (Auto) 1.9 % 2.7 % Basophils (%) (Auto) 0.3 % 0.5 % Neutrophils # (Auto) 2.69 K/uL 2.29 K/uL Lymphocytes # (Auto) 2.50 K/uL 2.73 K/uL Monocytes # (Auto) 0.48 K/uL 0.60 K/uL Eosinophils # (Auto) 0.11 K/uL 0.16 K/uL Basophils # (Auto) 0.02 K/uL 0.03 K/uL RDW Standard Deviation 42.2 fL 44.0 fL RDW Coefficient of Variation 12.8 % 13.0 % Immature Granulocyte % (Auto) 0.2 % 0.2 % Immature Granulocyte # (Auto) 0.01 K/uL 0.01 K/uL Sodium Level 140 mmol/L 144 mmol/L Potassium Level 3.4 mmol/L 3.7 mmol/L Chloride Level 103 mmol/L 110 mmol/L Carbon Dioxide Level 23 mmol/L 26 mmol/L Anion Gap 14.0 mmol/L 8.0 mmol/L Blood Urea Nitrogen 27 mg/dl 23 mg/dl Creatinine 1.50 mg/dl 1.20 mg/dl Est Creatinine Clear Calc Drug Dose 28.7 ml/min 35.2 ml/min Estimated GFR () 37.7 49.4 Estimated GFR (Non- 32.6 42.7 BUN/Creatinine Ratio 17.9 19.1 Random Glucose 100 mg/dl 83 mg/dl Calcium Level 10.1 mg/dl 9.0 mg/dl Magnesium Level 2.0 mg/dl 1.9 mg/dl Total Bilirubin 0.5 mg/dl Direct Bilirubin < 0.1 mg/dl Aspartate Amino Transf (AST/SGOT) 18 U/L Alanine Aminotransferase (ALT/SGPT) 18 U/L Alkaline Phosphatase 91 U/L Total Creatine Kinase 60 U/L 60 U/L 58 U/L Creatine Kinase MB 1.1 ng/ml 0.7 ng/ml 1.4 ng/ml Creatine Kinase MB Ratio 1.8 1.2 2.4 Total Protein 8.7 gm/dl Albumin 4.3 gm/dl Bedside D-Dimer > 450 ng/mlFEU Bedside Troponin I 0.000 ng/ml Troponin I < 0.015 ng/ml < 0.015 ng/ml Imaging: Echocardiogram was done and the result is pending EKG: On arrival a short RP supraventricular tachycardia consistent with typical AV yumiko reentry, after termination of the arrhythmia electrocardiogram shows sinus rhythm with PACs, normal TX interval. Telemetry reviewed: Predominantly sinus rhythm, periods of SVT while in the emergency room, none since. Assessment & Plan #1. SVT: The rhythm is well documented in the emergency room and is very likely to be typical AV yumiko reentry. His little bit unusual that she would have so much trouble with it over the last several days and never had it before, I think it is conceivable she had brief episodes and was unaware of them or did not recognize the symptoms. Apparently no prolonged episodes and no documentation in the past. Options include medical therapy and electrophysiology study with ablation, I discussed these options with her and her family and we all agree that a trial of medical therapy is indicated with possible ablation if that is unsuccessful. Medical therapy often is unsuccessful but we certainly should try it. We could try calcium blockers or beta blockers, she has hypertension and was on amlodipine for that prior to admission, this was switched to metoprolol on admission. I think it is reasonable to continue the metoprolol although if that doesn't work or she doesn 't tolerate it then I would consider trying diltiazem. If that doesn't work we should consider electrophysiology study and ablation. Thank you for allowing me to participate in her care.
[2016-08-16 12:09] LABS: CKMB/CK RATIO 1.3 (0-3.0)
--- NOTE | 2016-08-16 12:27 | Progress Note ---
Subjective Date of Service: Aug 16, 2016. Subjective Pt evaluation today including: conversation w/ patient, physical exam, chart review, lab review, review of studies, review of inpatient medication list Sitting up, having lunch. GOod appetite. No chest pain, no sob. No palpitations. No further episodes of SVT. Problem List Medical Problems: (1) Elevated d-dimer Status: Acute (2) Renal insufficiency Status: Acute Review of Systems All Other Systems: Reviewed and Negative Medications Medications (Trade) Dose Ordered Sig/Oliver Route Start Time Stop Time Status Last Admin Dose Admin Sodium Chloride (Nss 1000ml) 1,000 ml @ 125 mls/hr Q8H STAT IV 08/15/16 17:10 08/16/16 01:09 DC 08/15/16 17:12 125 MLS/HR Adenosine (Adenosine IV) 6 mg NOW STAT IV 08/15/16 17:10 08/15/16 17:11 DC 08/15/16 17:12 6 MG Metoprolol Tartrate (Lopressor Iv) 5 mg NOW STAT IV 08/15/16 17:10 08/15/16 17:11 DC 08/15/16 17:16 5 MG Potassium Chloride 20 meq 20 meq NOW STAT IV 08/15/16 18:07 08/15/16 18:08 DC 08/15/16 19:01 20 MEQ Potassium Chloride/Sodium Chloride (Nss + 20meq KCl 1000ml) 1,000 ml @ 50 mls/hr Q20H IV 08/15/16 19:14 09/14/16 19:13 08/16/16 00:36 50 MLS/HR Aspirin (Ecotrin Tab) 81 mg DAILY PO 08/16/16 09:00 09/15/16 08:59 08/16/16 09:06 81 MG Cholecalciferol (Vitamin D Tab) 1,000 inter.unit DAILY PO 08/16/16 09:00 09/15/16 08:59 08/16/16 09:06 1,000 INTER.UNIT Fish Oil (Brewer-3 (Purified Fish Oil) Cap) 1 gm DAILY PO 08/16/16 09:00 09/15/16 08:59 08/16/16 09:06 1 GM Levothyroxine Sodium (Synthroid Tab) 75 mcg DAILYBB PO 08/16/16 06:00 09/15/16 05:59 08/16/16 05:30 75 MCG Potassium Chloride (Klor-Con Tab) 20 meq BID PO 08/15/16 21:00 09/14/16 20:59 08/16/16 09:06 20 MEQ Calcium/Vitamin D (Caltrate Plus Tab) 1 tab BID PO 08/16/16 09:00 09/15/16 08:59 08/16/16 09:06 1 TAB Cyanocobalamin (Vitamin B-12 Tab) 1,000 mcg QAM PO 08/16/16 09:00 09/15/16 08:59 08/16/16 09:07 1,000 MCG Docusate Sodium (coLACE CAP) 100 mg BID PO 08/15/16 21:00 09/14/16 20:59 08/16/16 09:06 100 MG Metoprolol Tartrate (Lopressor Tab) 50 mg NOW STAT PO 08/15/16 19:20 08/15/16 22:47 DC 08/16/16 00:34 50 MG Metoprolol Tartrate (Lopressor Tab) 50 mg BID PO 08/16/16 09:00 09/15/16 08:59 08/16/16 09:06 50 MG Objective Vital Signs Date Time Temp Pulse Resp B/P Pulse Ox O2 Delivery O2 Flow Rate FiO2 08/16/16 04:00 97 Room Air 08/16/16 03:57 36.9 57 18 119/61 97 Room Air 08/16/16 00:33 36.7 80 18 160/83 96 161/78 08/16/16 00:00 97 Room Air 08/15/16 22:37 36.4 72 18 142/80 97 Room Air 08/15/16 21:29 79 16 130/54 99 08/15/16 20:04 81 16 119/84 97 Room Air 08/15/16 19:02 81 16 148/92 97 Room Air 08/15/16 18:48 78 18 160/81 97 Room Air 08/15/16 18:00 76 18 157/82 97 Room Air 08/15/16 17:36 75 18 162/94 97 Room Air 08/15/16 17:17 117 18 178/83 98 Room Air 08/15/16 17:16 117 178/83 08/15/16 17:13 171 08/15/16 16:56 112 08/15/16 16:52 36.5 109 20 192/94 97 Physical Exam Comments: NAD, aox3, coherent and fluent speech eomi, perrl, anicteric s1 s2 rrr, no m/r/g ctab, no w/r/r abd soft, nt/nd +BS no cva tenderness no le edema Laboratory Results Last 24 Hours Test 08/15/16 17:00 08/15/16 17:39 08/15/16 20:50 08/16/16 03:24 White Blood Count 5.81 K/uL 5.82 K/uL Red Blood Count 4.56 M/uL 3.87 M/uL Hemoglobin 14.8 g/dL 12.4 g/dL Hematocrit 41.2 % 35.9 % Mean Corpuscular Volume 90.4 fL 92.8 fL Mean Corpuscular Hemoglobin 32.5 pg 32.0 pg Mean Corpuscular Hemoglobin Concent 35.9 g/dl 34.5 g/dl Platelet Count 293 K/uL 255 K/uL Mean Platelet Volume 9.8 fL 10.1 fL Neutrophils (%) (Auto) 46.3 % 39.4 % Lymphocytes (%) (Auto) 43.0 % 46.9 % Monocytes (%) (Auto) 8.3 % 10.3 % Eosinophils (%) (Auto) 1.9 % 2.7 % Basophils (%) (Auto) 0.3 % 0.5 % Neutrophils # (Auto) 2.69 K/uL 2.29 K/uL Lymphocytes # (Auto) 2.50 K/uL 2.73 K/uL Monocytes # (Auto) 0.48 K/uL 0.60 K/uL Eosinophils # (Auto) 0.11 K/uL 0.16 K/uL Basophils # (Auto) 0.02 K/uL 0.03 K/uL RDW Standard Deviation 42.2 fL 44.0 fL RDW Coefficient of Variation 12.8 % 13.0 % Immature Granulocyte % (Auto) 0.2 % 0.2 % Immature Granulocyte # (Auto) 0.01 K/uL 0.01 K/uL Sodium Level 140 mmol/L 144 mmol/L Potassium Level 3.4 mmol/L 3.7 mmol/L Chloride Level 103 mmol/L 110 mmol/L Carbon Dioxide Level 23 mmol/L 26 mmol/L Anion Gap 14.0 mmol/L 8.0 mmol/L Blood Urea Nitrogen 27 mg/dl 23 mg/dl Creatinine 1.50 mg/dl 1.20 mg/dl Est Creatinine Clear Calc Drug Dose 28.7 ml/min 35.2 ml/min Estimated GFR () 37.7 49.4 Estimated GFR (Non- 32.6 42.7 BUN/Creatinine Ratio 17.9 19.1 Random Glucose 100 mg/dl 83 mg/dl Calcium Level 10.1 mg/dl 9.0 mg/dl Magnesium Level 2.0 mg/dl 1.9 mg/dl Total Bilirubin 0.5 mg/dl Direct Bilirubin < 0.1 mg/dl Aspartate Amino Transf (AST/SGOT) 18 U/L Alanine Aminotransferase (ALT/SGPT) 18 U/L Alkaline Phosphatase 91 U/L Total Creatine Kinase 60 U/L 60 U/L 58 U/L Creatine Kinase MB 1.1 ng/ml 0.7 ng/ml 1.4 ng/ml Creatine Kinase MB Ratio 1.8 1.2 2.4 Total Protein 8.7 gm/dl Albumin 4.3 gm/dl Bedside D-Dimer > 450 ng/mlFEU Bedside Troponin I 0.000 ng/ml Troponin I < 0.015 ng/ml < 0.015 ng/ml Test 08/16/16 11:25 Total Creatine Kinase 62 U/L Creatine Kinase MB 0.8 ng/ml Creatine Kinase MB Ratio 1.3 Troponin I < 0.015 ng/ml CHEST ONE VIEW PORTABLE CLINICAL HISTORY: Supraventricular tachycardia. COMPARISON STUDY: Chest radiograph June 06, 2010. FINDINGS: Lung volumes are normal. There is no pneumothorax or pleural effusion. Linear left basilar opacity is suggestive of atelectasis or scarring. Cardiac size is normal. A hiatal hernia is again noted. There is no evidence of pulmonary edema. Symmetric hazy biapical opacities are likely artifactual. No consolidation is identified. IMPRESSION: 1. No acute cardiopulmonary findings. 2. Moderate sized hiatal hernia. 3. Left basilar opacity suggestive of atelectasis or scarring. [~ rep ct add3]] BILATERAL LOWER EXTREMITY VENOUS DOPPLER CLINICAL HISTORY: Elevated d-dimer. Tachycardia. COMPARISON STUDY: Bilateral lower extremity venous Doppler October 01, 2007. TECHNIQUE: Sonography of the deep venous system of the bilateral lower extremities was performed. Compression and augmentation were evaluated. FINDINGS: The bilateral common femoral, superficial femoral and popliteal veins were compressible. Augmentation was normal. Flow was shown within the deep calf vessels. IMPRESSION: No evidence of deep venous thrombus within the bilateral lower extremities. Assessment and Plan 1. SVT - new on-set - check tsh - cardiac enzymes negative - awaiting 2de - no episodes as of this morning - cont metoprolol and observe hr on tele 2. HTN - controlled on metoprolol - hold off amlodipine for now 3. CKD II - expected at her age - does follow with [facility] outpatient dvt ppx with hsq
--- NOTE | 2016-08-16 17:02 | ECHOCARDIOGRAM REPORT ---
*NOTICE TO RECEIVING CONSTITUTION PARTY AGENCY This information is strictly Confidential and protected under [place] law. [place] law prohibits you from making any further disclosure of this information unless further disclosure is expressly permitted by the written consent of the person to whom it pertains or is authorized by law. A general authorization for the release of medical or other information is not sufficient for this purpose. Hospital accepts no responsibility if the information is made available to any other person, INCLUDING THE PATIENT. Interpretation Summary * Name: JUNG DEAL Study Date: 08/16/2016 07:20 AM BP: 119/61 mmHg * Patient Location: C.2T\S\S239\S\2 HR: 57 * : 1935 (M/d/yyyy) Gender: Female Height: 62 in * Age: 81 yrs Ethnicity: CA Weight: 169 lb * Ordering Physician: Jerzy Kennedy * Referring Physician: Lj Hernandez * Performed By: Radha Quintanilla RDCS * * Reason For Study: SVT * BSA: 1.8 m2 * History: SVT * Normal biventricular systolic function. * Mild concentric left ventricular hypertrophy. * Left ventricular diastolic dysfunction. * Trace mitral regurgitation. * Moderate tricuspid regurgitation. * Normal estimated right ventricular systolic pressure. Procedure Details * A complete two-dimensional transthoracic echocardiogram was performed (2D, M-mode, Doppler and color flow Doppler). Left Ventricle * The left ventricle is normal in size. * Mild concentric left ventricular hypertrophy except for more disproportionate thickening of the basal septum. * Ejection Fraction = 60-65%. * A full diastolic examination was done with clinical findings of Class I diastolic dysfunction. * Left ventricular systolic function is normal. * The left ventricular wall motion is normal. Right Ventricle * The right ventricle is normal in size and function. Atria * Borderline left atrial enlargement. * Right atrial size is normal. Mitral Valve * There is moderate mitral annular calcification. * There is no mitral valve stenosis. * There is trace mitral regurgitation. Tricuspid Valve * The tricuspid valve is normal. * There is no tricuspid stenosis. * There is moderate tricuspid regurgitation. * Right ventricular systolic pressure is normal. Aortic Valve * The aortic valve opens well. * The aortic valve is trileaflet. * Aortic stenosis is absent. * No aortic regurgitation is present. Pulmonic Valve * The pulmonic valve is not well seen, but is grossly normal. * There is no pulmonic valvular stenosis. * There is no pulmonic valvular regurgitation. Great Vessels * The aortic root is normal size. Pericardium/Pleural * There is no pericardial effusion. Great Vessels * Normal inferior vena cava diameter and respiratory variation suggests normal central venous pressure. MMode 2D Measurements and Calculations IVSd 1.2 cm IVSs 1.7 cm LVIDd 3.4 cm LVIDs 2.3 cm LVPWd 1.4 cm IVS/LVPW 0.90 FS 33.6 % EDV(Teich) 47.4 ml ESV(Teich) 17.2 ml EF(Teich) 63.6 % EDV(cubed) 39.2 ml ESV(cubed) 11.5 ml EF(cubed) 70.8 % % IVS thick 36.0 % LV mass(C)d 145.1 grams LV mass(C)dI 81.5 grams/m\S\2 SV(Teich) 30.1 ml SI(Teich) 16.9 ml/m\S\2 SV(cubed) 27.8 ml SI(cubed) 15.6 ml/m\S\2 Ao root diam 3.0 cm Ao root area 7.0 cm\S\2 LA dimension 3.9 cm LA/Ao 1.3 LVAd ap4 23.1 cm\S\2 LVLd ap4 6.9 cm EDV(MOD-sp4) 61.3 ml EDV(sp4-el) 65.2 ml LVAs ap4 12.3 cm\S\2 LVLs ap4 5.9 cm ESV(MOD-sp4) 21.5 ml ESV(sp4-el) 21.8 ml EF(MOD-sp4) 64.9 % EF(sp4-el) 66.5 % LVAd ap2 22.5 cm\S\2 LVLd ap2 7.1 cm EDV(MOD-sp2) 59.6 ml EDV(sp2-el) 60.3 ml LVAs ap2 12.2 cm\S\2 LVLs ap2 5.7 cm ESV(MOD-sp2) 21.8 ml ESV(sp2-el) 22.5 ml EF(MOD-sp2) 63.5 % EF(sp2-el) 62.7 % LVLd %diff 2.6 % EDV(MOD-bp) 60.1 ml LVLs %diff -3.89 % ESV(MOD-bp) 21.4 ml EF(MOD-bp) 64.5 % SV(MOD-sp4) 39.8 ml SI(MOD-sp4) 22.4 ml/m\S\2 SV(MOD-sp2) 37.8 ml SI(MOD-sp2) 21.3 ml/m\S\2 SV(MOD-bp) 38.8 ml SI(MOD-bp) 21.8 ml/m\S\2 SV(sp4-el) 43.3 ml SI(sp4-el) 24.4 ml/m\S\2 SV(sp2-el) 37.8 ml SI(sp2-el) 21.2 ml/m\S\2 Doppler Measurements and Calculations MV E max aiden 102.3 cm/sec MV A max aiden 120.3 cm/sec MV E/A 0.85 MV dec time 0.33 sec Ao V2 max 122.2 cm/sec Ao max PG 6.0 mmHg Ao max PG (full) 2.6 mmHg LV V1 max PG 3.4 mmHg LV V1 max 91.9 cm/sec TR max aiden 216.5 cm/sec
[2016-08-16 17:19] LABS: PARTIAL THROMBOPLASTIN RATIO 0.9; PROTHROMBIN TIME (PATIENT) 10.7 SECONDS (9.0-12.0)
[2016-08-16] MEDS: HEPARIN SOD 5000 UNIT/0.5 ML CARP SQ SCH (21:00)
[2016-08-17 00:01] VITALS: BP 148/72; PULSE 61; TEMP 36.5; O2SAT 95
[2016-08-17 04:15] VITALS: BP 133/74; PULSE 63; TEMP 36.5; O2SAT 95
[2016-08-17] MEDS: NSS + 20MEQ KCL 1000ML 1,000 ML IV SCH ×2 (06:04→11:14)
[2016-08-17] MEDS: LEVOTHYROXINE 75 MCG TAB PO SCH (06:30)
[2016-08-17 06:56] LABS: BASO % 0.8 %; BASO ABS # 0.04 K/uL (0-0.2); COMPLETE YES; EOS % 4.4 %; HEMATOCRIT 38.6 % (37-47); IG% 0.4 %; LYMPH % 47.8 %; LYMPH ABS # 2.37 K/uL (1.2-3.4); MEAN CORPUSCULAR HEMOGLOBIN 32.3 pg (25-34); MEAN CORPUSCULAR HGB CONC 34.7 g/dl (32-36); MEAN PLATELET VOLUME 11.1 fL (7.4-10.4); MONO % 10.1 %; NEUT % 36.5 %; PLATELET COUNT 204 K/uL (130-400); RED BLOOD COUNT 4.15 M/uL (4.2-5.4); WHITE BLOOD COUNT 4.96 K/uL (4.8-10.8)
[2016-08-17 07:23] LABS: BUN/CREATININE RATIO 18.1 (10-20); CALCIUM 9.7 mg/dl (8.5-10.1); CREATININE 1.2 mg/dl (0.60-1.20); MAGNESIUM 1.7 mg/dl (1.8-2.4); POTASSIUM 4.2 mmol/L (3.5-5.1)
[2016-08-17 07:33] LABS: THYROID STIMULATING HORMONE 0.841 uIu/ml (0.300-4.500)
[2016-08-17 08:03] VITALS: BP 149/78; PULSE 58; TEMP 36.4; O2SAT 100
[2016-08-17] MEDS: FLUTICASONE PROPIONATE NA SPR 16 GM BTL NAE SCH (08:20)
[2016-08-17] MEDS: HEPARIN SOD 5000 UNIT/0.5 ML CARP SQ SCH (08:22)
[2016-08-17] MEDS: POTASSIUM CHLORIDE 20 MEQ TABCR PO SCH (08:23)
[2016-08-17] MEDS: OMEGA-3 (PURIFIED FISH OIL) 1 GM CAP PO SCH (08:23)
[2016-08-17] MEDS: DOCUSATE SODIUM 100 MG CAP PO SCH (08:23)
[2016-08-17] MEDS: CYANOCOBALAMIN 500 MCG TAB (VIT B-12) PO SCH (08:23)
[2016-08-17] MEDS: CALCIUM 600MG + VIT D 400 IU TAB PO SCH (08:23)
[2016-08-17] MEDS: ASPIRIN 81 MG ECTAB PO SCH (08:23)
[2016-08-17] MEDS: CHOLECALCIFEROL 1000 INTER.UNIT TAB PO SCH (08:23)
[2016-08-17] MEDS: METOPROLOL TARTRATE 50 MG TAB PO SCH (08:23)
[2016-08-17] MEDS ORDERED: METO50TA17 PO ×2 (11:36)
--- NOTE | 2016-08-17 11:40 | Discharge Instructions ---
Discharge Instructions Admission Reason for Admission: Supraventricular Tachycardia Discharge Discharge Diagnosis / Problem: Supraventricular Tachycardia Discharge Goals Goal(s): Decrease discomfort, Improve function, Increase independence Activity Recommendations Activity Limitations: resume your previous activity . Instructions / Follow-Up Instructions / Follow-Up You were on potassium supplement prior to admission, which was related to the HCTZ component of your dyazide. Now that you will not be taking this medication , your potassium is at a good level. I do not think you need to take the potassium as long as you are no longer on HCTZ. You should have your levels checked next week to determine if you need further potassium use off of this medication. You should take your metoprolol tomorrow morning as you would normally, even though you are having IV contrast with a CT. It will not affect this. If you miss doses of metoprolol, your heart could return to the abnormal rhythm. Dr. Hernandez next week Dr. Covarrubias if your symptoms are recurrent. Current Hospital Diet Patient's current hospital diet: AHA Diet (Heart Healthy) Discharge Diet Recommended Diet: Regular Diet Pending Studies Studies pending at discharge: no Laboratory Results Lipid Panel Test 07/14/16 14:20 Range/Units Triglycerides Level 187 H 0-150 mg/dl Cholesterol Level 250 H 0-200 mg/dl HDL Cholesterol 72 mg/dl Cholesterol/HDL Ratio 3.5 LDL Cholesterol, Calculated 141 mg/dl Medical Emergencies . Who to Call and When: Medical Emergencies: If at any time you feel your situation is an emergency, please call 911 immediately. . Non-Emergent Contact Non-Emergency issues call your: Primary Care Provider . . "Provider Documentation" section prepared by Munira Tran. VTE Core Measure Inpt VTE Proph given/why not?: SCD's
[2016-08-17 11:42] VITALS: BP 129/77; PULSE 55; TEMP 36.7; O2SAT 96
--- NOTE | 2016-08-17 11:43 | Discharge Summary ---
Discharge Summary Admission Date: Aug 15, 2016 at 19:14 Discharge Date: Aug 17, 2016 Discharge Disposition: Home Principal Diagnosis: SVT Problems/Secondary Diagnoses: HTN CKD Hypothyroid OA Immunizations: Have You Had Influenza Vaccine: N/A History of Tetanus Vaccine?: No History of Pneumococcal: Yes History of Hepatitis B Vaccine: No Consultations: Dr. Merlos (cardiology) Medication Reconciliation New Medications: Metoprolol Tartrate (Metoprolol Tartrate) 50 Mg Tab 50 MG PO BID for 30 Days, #60 TAB Continued Medications: Aspirin (Aspirin Ec) 81 Mg Tab 81 MG PO DAILY Calcium Carbonate-Vitamin D (Calcium + D3 600-200 mg-Unit) 1 Tab Tab 1 TAB PO BID Capsaicin (Zostrix Arthritis Pain Re) 0.025 % Cre 1 APPLN TD QID Cholecalciferol (Vitamin D3) 1,000 Unit Tab 1000 UNITS PO DAILY, TAB Cyanocobalamin (Vitamin B12) 1,000 Mcg Tab 1000 MCG PO DAILY Fish Oil ([place]-3) 1 Ea Cap 1200 MG PO DAILY, CAP Fluticasone Propionate (Nasal) (Flonase Allergy Relief) 50 Mcg/Act Spr 2 SPRAYS MISHEL DAILY Levothyroxine Sodium (Levothyroxine Sodium) 75 Mcg Tab 1 TAB PO DAILY Tramadol (Ultram) 50 Mg Tab 1 TAB PO AC PRN for UNDECIDED, TAB Discontinued Medications: Amlodipine (Norvasc) 5 Mg Tab 5 MG PO DAILY, TAB Potassium Ext Rel (Klor-Con) 20 Meq Tabcr 20 MEQ PO DAILY, TAB Triamterene/Hctz (Dyazide 37.5MG/25MG) Cap 1 CAP PO QAM, CAP Discharge Exam Pt is feeling well today and would like to d/c home. No further palpitations/ heart racing. Has been OOB to the bathroom and no further dizziness/ lightheadedness. Pt denies fever, SOB, chest pain, abd pain, n/v/c/d, LE pain. Pt has LE swelling at baseline after being on her feet all day, this is better than usual as she has not been on her feet extensively. ROS as noted above, otherwise neg. Physical Exam: General Appearance: WD/WN, no apparent distress Respiratory/Chest: normal breath sounds, no respiratory distress Cardiovascular: regular rate, rhythm, normal peripheral pulses Abdomen / GI: non tender, soft Extremities: no calf tenderness, + pedal edema (trace) Neurologic/Psychiatric: alert, oriented x 3 Skin: normal color, warm/dry Hospital Course 81 y/o F who was sent to the ED for further evaluation by her PCP after being noted to have SVT in the office. Pt had some mild dizziness and palpitations with this, but is now sx free. 1. SVT - new on-set - TSH WNL - trop neg x3 - ECHO with EF 60-65% and mild LVH noted Stable on metoprolol If recurrence, could consider diltiazem Cardiology recs for med management after discussion with pt, but may need ablation in the future if this is not successful LE US neg for DVT 2. HTN - controlled on metoprolol - d/c norvasc, which will possibly help her LE edema -d/c diazide Pt was on potassium supplements in relation to her HCTZ use, will hold this for now given d/c of diazide and her K is WNL now that this has been held PRP next week to monitor 3. CKD II - expected at her age - does follow with home health assistant outpatient Pt was undergoing work-up with PCP for back pain, CT AP is still scheduled for tomorrow per CM. Total Time Spent: Greater than 30 minutes This includes examination of the patient, discharge planning, medication reconciliation, and communication with other providers. Discharge Instructions Please refer to the electronic Patient Visit Report (Discharge Instructions) for additional information. Follow-Up Dr. Hernandez next week Dr. Covarrubias if your symptoms are recurrent. Additional Copies To Lj Hernandez M.D.
[2016-08-17 11:49] VITALS: BP 129/77; PULSE 55; TEMP 36.7; O2SAT 96
== END 2016-08-17 12:27 | disposition home or self-care (01) | DRG 310 ==
LOC: ENRESERVDT → ENRESERVTM → C.EDB 16:41 → C.2T 19:14 → EDBEDREQ 19:26
PROVIDERS: ADMIT Hospitalist; ATTEND Family Medicine
DX: I47.1 Supraventricular tachycardia (principal); I12.9 Hypertensive chronic kidney disease with stage 1 through stage 4 chronic kidney disease, or unspecified chronic kidney disease; Z83.3 Family history of diabetes mellitus; Z82.49 Family history of ischemic heart disease and other diseases of the circulatory system; Z84.1 Family history of disorders of kidney and ureter; Z88.6 Allergy status to analgesic agent; Z88.5 Allergy status to narcotic agent; Z88.8 Allergy status to other drugs, medicaments and biological substances; Z79.82 Long term (current) use of aspirin; Z79.899 Other long term (current) drug therapy; E03.9 Hypothyroidism, unspecified; J30.9 Allergic rhinitis, unspecified; M19.90 Unspecified osteoarthritis, unspecified site; N18.3 Chronic kidney disease, stage 3 (moderate)

== ENCOUNTER → 2016-08-18 | Outpatient (CLI) | payer OTHER ==
[~2016-08-18] MED LIST changes: +ASPI81TA28 PO; +CALC-388 PO; +CALC1TAB10; +CAPSCRE3 TD; +CHOL1000 PO; +CYAN100020 PO; +FLUT0.15 NAE; +METO50TA17 PO; +POTA20TA16 PO; +TRIA37.5 PO
--- NOTE | 2016-08-18 12:38 | DIAGNOSTIC IMAGING REPORT ---
CT ABD/PELVIS ORAL CONT ONLY CT DOSE: 478.63 mGy.cm CLINICAL HISTORY: Back pain. TECHNIQUE: Axial images of the abdomen and pelvis were obtained without IV contrast. Oral contrast was administered. COMPARISON STUDY: Renal ultrasound March 29, 2015. FINDINGS: Visualized portions of the lower chest demonstrate a moderate to large hiatal hernia with partially intrathoracic stomach. The gastric cardia, fundus and proximal body of the stomach are located within the chest. No pneumatosis, free air or portal venous gas is present. Linear and groundglass opacities within the lungs represent atelectasis. A few small hypodense hepatic lesions measuring up to 1.2 cm are suboptimally assessed on this unenhanced exam but likely reflect cysts. There is a splenule. Unenhanced images of the spleen, adrenal glands and pancreas are normal. There is no biliary or pancreatic ductal dilatation. 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 There are water attenuation bilateral renal lesions which were shown to represent cysts on prior ultrasound. The caliber of small and large bowel are normal. The appendix is normal. There is left colon diverticulosis without evidence for acute diverticulitis. A uterine lesion measures approximately 5.5 cm and is unchanged since prior exams. This suggests a fibroid. No lymphadenopathy is present. Multilevel disc space narrowing, disc bulges and vacuum disc phenomenon are noted within the lumbar spine, suboptimally assessed by CT. There is mild dextroscoliosis of the lumbar spine. There is no lumbar spine fracture or suspicious lesion. The central canal and neural foramen are suboptimally assessed by CT. IMPRESSION: . 1. No acute process within the abdomen or pelvis on unenhanced exam. 2. Moderate to large hiatal hernia with partially intrathoracic stomach. 3. Suspected hepatic and renal cysts, suboptimally assessed on this unenhanced exam. 4. Small duodenal lipoma, a finding of doubtful significance. 5. No change in a suspected uterine fibroid. 6. Moderate to severe multilevel degenerative disc disease and facet arthrosis of the lumbar spine with mild dextroscoliosis. No lumbar spine fracture. Electronically signed by: Lio Cao M.D. 08/18/2016 12:36 PM Dictated Date/Time: 08/18/2016 12:26 PM
== END | disposition home or self-care (01) ==
LOC: C.CTS 10:09
PROVIDERS: ATTEND Internal Medicine Geriatric Medicine
DX: M54.9 Dorsalgia, unspecified (principal); K44.9 Diaphragmatic hernia without obstruction or gangrene; D17.5 Benign lipomatous neoplasm of intra-abdominal organs; M51.36 Other intervertebral disc degeneration, lumbar region

== ENCOUNTER → 2016-08-23 | Outpatient (CLI) | payer OTHER ==
[~2016-08-23] MED LIST changes: -AMLO-110 PO; -CALC-51 PO; -CALC1TAB10; -CHOL100010 PO; -HYDR25TA4 PO; -NEBI10TA2 PO; -POTA20TA16 PO; -TRIA37.5 PO
[2016-08-23 18:40] LABS: BLOOD UREA NITROGEN 19 mg/dl (7-18); BUN/CREATININE RATIO 15.7 (10-20); CALCIUM 9.1 mg/dl (8.5-10.1); CARBON DIOXIDE 25 mmol/L (21-32); CHLORIDE 107 mmol/L (98-107); GLUCOSE 107 mg/dl (70-99); POTASSIUM 3.5 mmol/L (3.5-5.1); SODIUM 142 mmol/L (136-145)
== END | disposition home or self-care (01) ==
LOC: C.LABPBG 11:41
PROVIDERS: ATTEND Family Medicine
DX: E87.6 Hypokalemia (principal)

== ENCOUNTER → 2016-10-31 | Outpatient (CLI) | payer OTHER ==
[~2016-10-31] MED LIST changes: +TRIA37.5 PO
[2016-10-31 17:25] LABS: BASO % 0.7 %; BASO ABS # 0.04 K/uL (0-0.2); COMPLETE YES; EOS % 5.9 %; LYMPH % 38.5 %; LYMPH ABS # 2.08 K/uL (1.2-3.4); MEAN CORPUSCULAR HEMOGLOBIN 31.1 pg (25-34); MEAN CORPUSCULAR HGB CONC 33.1 g/dl (32-36); MEAN PLATELET VOLUME 10.4 fL (7.4-10.4); NEUT % 44.9 %; PLATELET COUNT 281 K/uL (130-400); RED BLOOD COUNT 4.15 M/uL (4.2-5.4)
[2016-10-31 17:34] LABS: BLOOD UREA NITROGEN 26 mg/dl (7-18); BUN/CREATININE RATIO 21.3 (10-20); CALCIUM 9.7 mg/dl (8.5-10.1); CARBON DIOXIDE 30 mmol/L (21-32); CHLORIDE 105 mmol/L (98-107); GLUCOSE 85 mg/dl (70-99); POTASSIUM 3.4 mmol/L (3.5-5.1); SODIUM 142 mmol/L (136-145)
[2016-10-31 17:44] LABS: THYROID STIMULATING HORMONE 0.378 uIu/ml (0.300-4.500)
== END | disposition home or self-care (01) ==
LOC: C.LABPBG 14:21
PROVIDERS: ATTEND Internal Medicine Geriatric Medicine
DX: I10 Essential (primary) hypertension (principal); E03.9 Hypothyroidism, unspecified; E55.9 Vitamin D deficiency, unspecified; E87.6 Hypokalemia

== ENCOUNTER → 2016-11-06 | Outpatient (CLI) | payer OTHER ==
--- NOTE | 2016-11-09 06:41 | POLYSOMNOGRAPH REPORT ---
CLINICAL DATA: An 81-year-old female with a BMI of [address] Hernandez for evaluation of possible sleep apnea. She is weak and tired and has some memory difficulty. She does nap during the day. On the evening of 11/06/2016, a home sleep apnea test was performed using a Tindie type 3 monitor. RECORDING RESULTS: Total recording time was 10 hours. The patient's estimated sleep time and monitoring time was 7 hours. RESPIRATORY DATA: Very mild sleep apnea was documented. The JUWAN was 6.4. There were 11 obstructive and 2 mixed apneic episodes. There were 32 hypopneic episodes. The longest respiratory event was 40 seconds. OXIMETRY DATA: Very mild nocturnal hypoxemia was seen. Oxygen frank was 85%. Mean saturation was 91%. HEART RATE DATA: Heart rates ranged from 50-61 beats per minute. SNORING DATA: Snoring was reported out the night. IMPRESSION: Very mild sleep apnea/hypopnea with a respiratory event index of 6.4 with mild nocturnal hypoxemia.The majority of the episodes occurred when supine. RECOMMENDATIONS: The patient may benefit from positional therapy since majority of these events occurred while supine, weight loss, use of an oral appliance, or possibly a repeat sleep study with CPAP. Clinical correlation is needed. YOVANY
== END | disposition home or self-care (01) ==
LOC: C.NEUR 09:44
PROVIDERS: ATTEND Internal Medicine Geriatric Medicine
DX: R40.0 Somnolence (principal); G47.30 Sleep apnea, unspecified

== ENCOUNTER → 2017-02-09 | Outpatient (CLI) | payer OTHER ==
[~2017-02-09] MED LIST changes: -TRIA37.5 PO
[2017-02-09 13:31] LABS: BLOOD UREA NITROGEN 22 mg/dl (7-18); BUN/CREATININE RATIO 13.6 (10-20); CARBON DIOXIDE 29 mmol/L (21-32); CHLORIDE 102 mmol/L (98-107); GLUCOSE 100 mg/dl (70-99); POTASSIUM 3.5 mmol/L (3.5-5.1); SODIUM 139 mmol/L (136-145)
== END | disposition home or self-care (01) ==
LOC: C.LABPBG 10:23
PROVIDERS: ATTEND Internal Medicine Geriatric Medicine
DX: I10 Essential (primary) hypertension (principal); E03.9 Hypothyroidism, unspecified

== ENCOUNTER → 2017-03-01 | Outpatient (CLI) | payer OTHER ==
--- NOTE | 2017-03-01 12:39 | MAMMOGRAPHY REPORT ---
BILATERAL DIGITAL SCREENING MAMMOGRAM WITH CAD: 03/01/2017 TECHNIQUE: Current study was also evaluated with a Computer Aided Detection (CAD) system. Bilateral CC and MLO views were obtained. COMPARISON: Comparison is made to exams dated: 02/29/2016 mammogram, 02/26/2015 mammogram, 02/24/2014 m ammogram, 02/24/2014 ultrasound, 02/11/2014 mammogram, and 02/10/2013 mammogram - [facility]. BREAST COMPOSITION: There are scattered areas of fibroglandular density in both breasts. FINDINGS: No suspicious masses, calcifications, or areas of architectural distortion are noted in ei ther breast. There has been no significant interval change compared to prior exams. Bilateral asymme tries and bilateral benign-appearing calcifications are not significantly changed. IMPRESSION: ACR BI-RADS CATEGORY 2: BENIGN There is no mammographic evidence of malignancy. A 1 year screening mammogram is recommended. The pa tient will receive written notification of the results. Approximately 10% of breast cancers are not detected with mammography. A negative mammographic report should not delay biopsy if a clinically suggestive mass is present. Belem Patel M.D. /:03/01/2017 11:59:41 Replenisher: Tatum PLEITEZ(Chris)(M), [facility] letter sent: Normal 1/2 BI-RADS Code: ACR BI-RADS Category 2: Benign
== END | disposition home or self-care (01) ==
LOC: C.MAMM 11:06
PROVIDERS: ATTEND Internal Medicine Geriatric Medicine
DX: Z12.31 Encounter for screening mammogram for malignant neoplasm of breast (principal)

== ENCOUNTER → 2017-05-14 | Outpatient (CLI) | payer OTHER ==
--- NOTE | 2017-05-14 14:02 | DIAGNOSTIC IMAGING REPORT ---
L KNEE 3 VIEWS CLINICAL HISTORY: M25.562 Knee pain, COMPARISON: None. DISCUSSION: The bones are mildly osteopenic. There are mild to moderate osteoarthritic changes. No acute fractures are visualized. No destructive lesions are evident. IMPRESSION: Mild to moderate degenerative change. No acute fractures. Electronically signed by: Stiven Machuca M.D. 05/14/2017 2:00 PM Dictated Date/Time: 05/14/2017 2:00 PM
--- NOTE | 2017-05-14 14:12 | DIAGNOSTIC IMAGING REPORT ---
LEFT KNEE SINGLE STANDING VIEW HISTORY: M25.562 Knee pain, left [id number] COMPARISON: Left knee 05/14/2017. FINDINGS: The bones are osteopenic. No fracture or dislocation. Mild cartilage space narrowing within the medial compartment with tiny marginal osteophytes. There is hypertrophy of the tibial spines. Soft tissues are unremarkable. No radiopaque foreign bodies. IMPRESSION: No fractures within the left knee. Mild osteoarthritis. Electronically signed by: Enio Petty M.D. 05/14/2017 2:11 PM Dictated Date/Time: 05/14/2017 2:10 PM
== END | disposition home or self-care (01) ==
LOC: C.LAB1850 13:12
PROVIDERS: ATTEND Physician Assistant
DX: M25.562 Pain in left knee (principal); M17.12 Unilateral primary osteoarthritis, left knee

== ENCOUNTER → 2017-07-27 | Outpatient (CLI) | payer OTHER ==
[~2017-07-27] MED LIST changes: -METO50TA17 PO; +TRIA37.5 PO
[2017-07-27 12:38] LABS: BASO ABS # 0.05 K/uL (0-0.2); EOS % 1.2 %; EOS ABS # 0.06 K/uL (0-0.5); HEMATOCRIT 38.6 % (37-47); HEMOGLOBIN 13.2 g/dL (12.0-16.0); LYMPH % 36.1 %; LYMPH ABS # 1.83 K/uL (1.2-3.4); MEAN CELL VOLUME 96.3 fL (80-100); MEAN CORPUSCULAR HEMOGLOBIN 32.9 pg (25-34); MEAN CORPUSCULAR HGB CONC 34.2 g/dl (32-36); MEAN PLATELET VOLUME 10.3 fL (7.4-10.4); MONO % 11.4 %; MONO ABS # 0.58 K/uL (0.11-0.59); NEUT % 50.3 %; NEUT ABS # 2.55 K/uL (1.4-6.5); PLATELET COUNT 282 K/uL (130-400); RED CELL DISTRIBUTION WIDTH CV 12.8 % (11.5-14.5); RED CELL DISTRIBUTION WIDTH SD 44.8 fL (36.4-46.3); WHITE BLOOD COUNT 5.07 K/uL (4.8-10.8)
[2017-07-27 13:11] LABS: BLOOD UREA NITROGEN 25 mg/dl (7-18); CALCIUM 9.7 mg/dl (8.5-10.1); CARBON DIOXIDE 28 mmol/L (21-32); CREATININE 1.38 mg/dl (0.60-1.20); GLUCOSE 88 mg/dl (70-99); POTASSIUM 3.2 mmol/L (3.5-5.1); SODIUM 138 mmol/L (136-145)
== END | disposition home or self-care (01) ==
LOC: C.LABPBG 08:35
PROVIDERS: ATTEND Internal Medicine Geriatric Medicine
DX: I12.9 Hypertensive chronic kidney disease with stage 1 through stage 4 chronic kidney disease, or unspecified chronic kidney disease (principal); M48.00 Spinal stenosis, site unspecified; E55.9 Vitamin D deficiency, unspecified; N18.3 Chronic kidney disease, stage 3 (moderate); I47.1 Supraventricular tachycardia

== ENCOUNTER → 2017-08-15 | Outpatient (CLI) | payer OTHER ==
[~2017-08-15] MED LIST changes: -CALC-388 PO; +ESTR10TA PV; +LOSA1TAB PO; +SENNTAB23; -TRAM-10 PO; -TRIA37.5 PO
[2017-08-15 13:20] LABS: BLOOD UREA NITROGEN 17 mg/dl (7-18); CARBON DIOXIDE 26 mmol/L (21-32); CREATININE 1.25 mg/dl (0.60-1.20); GLUCOSE 77 mg/dl (70-99); SODIUM 141 mmol/L (136-145)
== END | disposition home or self-care (01) ==
LOC: C.LABPBG 09:41
PROVIDERS: ATTEND Internal Medicine Geriatric Medicine
DX: I10 Essential (primary) hypertension (principal)

== ENCOUNTER → 2017-10-01 | Outpatient (CLI) | payer OTHER ==
[2017-10-01 13:11] LABS: HEMATOCRIT 39.6 % (37-47); HEMOGLOBIN 13.6 g/dL (12.0-16.0); MEAN CELL VOLUME 96.1 fL (80-100); MEAN CORPUSCULAR HGB CONC 34.3 g/dl (32-36); MEAN PLATELET VOLUME 9.8 fL (7.4-10.4); PLATELET COUNT 238 K/uL (130-400); RED CELL DISTRIBUTION WIDTH CV 13.8 % (11.5-14.5); RED CELL DISTRIBUTION WIDTH SD 48.9 fL (36.4-46.3); WHITE BLOOD COUNT 7.72 K/uL (4.8-10.8)
[2017-10-01 14:28] LABS: BLOOD UREA NITROGEN 27 mg/dl (7-18); CALCIUM 9.6 mg/dl (8.5-10.1); CARBON DIOXIDE 24 mmol/L (21-32); CREATININE 1.36 mg/dl (0.60-1.20); GLUCOSE 90 mg/dl (70-99); POTASSIUM 3.7 mmol/L (3.5-5.1); SODIUM 137 mmol/L (136-145)
[2017-10-01 14:39] LABS: CHOLESTEROL 255 mg/dl (0-200); LDL CHOLESTEROL CALCULATED 154 mg/dl
== END | disposition home or self-care (01) ==
LOC: C.LABPBG 09:12
PROVIDERS: ATTEND Internal Medicine Geriatric Medicine
DX: R60.9 Edema, unspecified (principal); I12.9 Hypertensive chronic kidney disease with stage 1 through stage 4 chronic kidney disease, or unspecified chronic kidney disease; E03.9 Hypothyroidism, unspecified; N18.3 Chronic kidney disease, stage 3 (moderate); E78.5 Hyperlipidemia, unspecified; M48.00 Spinal stenosis, site unspecified

== ENCOUNTER → 2017-10-04 | Outpatient (CLI) | payer OTHER | END | disposition home or self-care (01) | LOC: C.LABSPEC 10:30 | PROVIDERS: ATTEND Internal Medicine Geriatric Medicine | DX: I12.9 Hypertensive chronic kidney disease with stage 1 through stage 4 chronic kidney disease, or unspecified chronic kidney disease (principal); E03.9 Hypothyroidism, unspecified; N18.3 Chronic kidney disease, stage 3 (moderate); E78.5 Hyperlipidemia, unspecified; M48.00 Spinal stenosis, site unspecified ==

== ENCOUNTER → 2017-11-07 | Outpatient (CLI) | payer OTHER ==
[~2017-11-07] MED LIST changes: -CHOL1000 PO
== END | disposition home or self-care (01) ==
LOC: C.LABPBG 12:28
PROVIDERS: ATTEND Internal Medicine Geriatric Medicine
DX: E03.9 Hypothyroidism, unspecified (principal)

== ENCOUNTER 2023-01-10 17:01 | Inpatient (IN) ==
--- NOTE | 2023-01-10 18:06 | XRay Report ---
RIGHT FOOT 3 VIEWS CLINICAL HISTORY: Right foot swelling. FINDINGS: 3 portable views of the right foot are compared to study dated 12/20/2022. The skeletal stru ctures are heterogeneously osteopenic. No acute fracture seen. There is a large plantar heel spur. De generative spurring is seen along the dorsal aspect of the tarsal bones. There is chronic deformity o f the distal first metatarsal with moderate osteoarthritic change at the first metatarsophalangeal greg int. There is erosive change within the medial head of the first metatarsal. This is suspicious for o steomyelitis. Overlying soft tissue edema is noted. No additional foci of bony erosion are identified . [id number] osteophytic changes seen throughout the midfoot. There is diffuse soft tissue jean pierre a. Atherosclerotic calcification is noted in the regional arteries. IMPRESSION: 1. There is erosive change within the head of the first metatarsal, suspicious for osteomyelitis. Cor relate clinically. 2. No additional foci of bony erosion are identified and no fracture is seen. 3. Diffuse soft tissue edema may represent cellulitis. Correlate clinically. 4. Osteopenia with degenerative change and heel spurs as above. Electronically signed by: Tapan Holliday M.D. 01/10/2023 6:05 PM
[2023-01-10 18:39] LABS: Basophils # (auto) 0.04 K/uL (0-0.2); Basophils % (auto) 0.3 %; Eosinophils # (auto) 0.09 K/uL (0-0.50); Eosinophils % (auto) 0.7 %; Hematocrit (blood only) 38.4 % (37.0-47.0); Hemoglobin 13.1 g/dl (12.0-16.0); Immature Granulocytes # (auto) 0.06 K/uL (0.01-0.20); Immature Granulocytes % (auto) 0.5 %; Lymphocytes # (auto) 2.11 K/uL (1.2-3.4); Mean Corpuscular Hemoglobin 31.6 pg (25.0-34.0); Mean Corpuscular Hgb Conc 34.1 g/dL (32.0-36.0); Mean Corpuscular Volume 92.8 fL (80.0-100.0); Mean Platelet Volume 10.8 fL (9.4-12.4); Monocytes # (auto) 1.42 K/uL (0.11-0.59); Monocytes % (auto) 10.8 %; Neutrophils # (auto) 9.47 K/uL (1.40-6.50); Neutrophils % (auto) 71.7 %; Platelet Count 242 K/uL (130-400); RDW Standard Deviation 43.8 fL (36.4-46.3); Red Blood Count 4.14 M/uL (4.20-5.40); White Blood Count 13.19 K/ul (4.8-10.8)
[2023-01-10 18:56] LABS: Alanine Aminotransferase 15 U/L (7-52); Albumin Globulin Ratio 1.2 (0.9-2); Alkaline Phosphatase 94 U/L (34-104); Anion Gap 11 (3-11); Aspartate Aminotransferase 17 U/L (13-39); Bilirubin,Total 0.6 mg/dl (0.2-1.0); Blood Urea Nitrogen 22 mg/dl (6-23); Calcium 9.5 mg/dl (8.6-10.3); Carbon Dioxide 25 mmol/L (21-32); Chloride 98 mmol/L (98-107); Est GFR (African American) 37.1 ml/min; Globulin 3.3 gm/dl (2.5-4.0); Glucose 98 mg/dl (70-99(Fasting)); Potassium 3.6 mmol/L (3.5-5.1); Sodium 134 mmol/L (136-145); Total Protein 7.3 gm/dl (6.0-8.3)
[2023-01-10] MEDS ORDERED: cefTRIAXone SODIUM 2,000 MG/70 ML BAG IV STA (21:33)
[2023-01-10 21:46] LABS: Uric Acid 9.2 mg/dl (2.6-7.2)
--- NOTE | 2023-01-10 21:49 | Emergency Department Note ---
Impression & Plan Cellulitis of foot, right, Osteomyelitis ED Provider Note ED Provider Note NAME: JUNG DEAL AGE:87 SEX: Female : 1935 ARRIVES VIA: Private INFORMANT: Patient, family ED PROVIDER(s): Sandee Salazar DO CHIEF COMPLAINT: Right foot infection HPI: This is an 87-year-old female who presents to the emergency room due to concern for recurrent right foot infection. Son at bedside helps with history as patient is hard of hearing and has difficulty with memory. He states 2 weeks ago she began having some redness to her foot and was placed on antibiotics by her PCP. It seemed to be worsening so they presented here to the ER. Patient was examined given IV antibiotics, and oral antibiotics at discharge were billy nged. Patient seemed to have some ADRs including confusion to those antibiotics so they followed up with the PCP. Those antibiotics were stopped and the PCP felt that her symptoms were more likely related to gout. She was not started on medication for gout but there was discussion of dietary changes to help minimize this. The son states her symptoms started to improve and she had no symptoms as of a week ago. He states 2 nights ago she began complaining of pain and swelling in the same area again and the next morning noticed redness again. He states this morning area looked markedly more red and patient complained of increased pain. No recent change in medications otherwise. She denies fevers, chills, nausea, vomiting. PAST MEDICAL HISTORY:See Below PAST SURGICAL HISTORY:See Below FAMILY HISTORY:See Below SOCIAL HISTORY:See Below HOME MEDICATIONS:See Below ALLERGIES:See Below VITALS:See Below PHYSICAL EXAMINATION: GENERAL: alert, well appearing, well nourished, no distress, non-toxic, [id number] EYE EXAM: normal conjunctiva, PERRL and EOM's grossly intact OROPHARYNX: no exudate, no erythema, lips, buccal mucosa, and tongue normal and mucous membranes are moist NECK: supple, no nuchal rigidity, no adenopathy, non-tender LUNGS: Clear to auscultation. Normal chest wall mechanics, no w/r/r HEART: no murmurs, S1 normal and S2 normal ABDOMEN: abdomen soft, non-tender, normo-active bowel sounds, no masses, no rebound or guarding. BACK: Back is symmetrical on inspection and there is no deformity, no midline tenderness, no CVA tenderness. SKIN: no rashes, petechiae, orbruising UPPER EXTREMITIES: upper extremities are grossly normal. FROM, nml pulses b/l. LOWER EXTREMITIES: No pitting edema. FROM, nml pulses b/l. Increased erythema and warmth noted to the first MTP with accompanying edema, and mild overlying sloughing of skin, no vesicles, no bullae. Pain with attempts at range of motion and movement. Left lower extremity unremarkable. Sensation intact bilaterally. NEURO EXAM: Normal sensorium, cranial nerves II-XII grossly intact, normal speech, no facial droop,nogross weakness of arms, no gross weakness of legs. Gross sensation intact. No ataxia. Vital Signs: reviewed and remarkable Differential Diagnosis: Cellulitis, gout, septic arthritis, osteomyelitis, contact dermatitis, as well as others were considered MEDICAL DECISION MAKING: This is an 87-year-old female presents emergency department due to concern for recurrent right foot infection. Patient with recent right foot cellulitis treated with antibiotics and then presumption of possible gout with resolution of symptoms until they recurred again within the last several days. She was afebrile and vital signs stable. Labs drawn and sent, IV established, and x-ray of the foot obtained. Unfortunately x-rays were by radiology concerning for erosive changes and possible osteomyelitis. Due to recent likely cellulitis as well as recurrence of symptoms here tonight, case was discussed with the hospitalist for additional evaluation and management. Blood cultures and procalcitonin added, patient started on IV antibiotics. Leukocytosis noted although procalcitonin was negative. CRP elevated additionally. Patient and family at bedside verbalized understanding of results and were in agreement with the plan. Consultation(s): 2241: Discussed with Dr. Romero ER Treatment Provided: See below Diagnostics Interpreted By Me: -ECG: [] -Cardiac Monitoring: An order was placed for continuous cardiac monitoring. The monitor shows a rate of 80 with normal sinus rhythm. -Laboratory studies: As stated above and show below. -Imaging studies: [] Triage Nursing Note Reviewed Prior/Outside Records Reviewed Procedures: [] Critical Care: [] Past Med/Surg History Medical History Anxiety Chronic kidney disease, stage 3 (moderate) Chronic osteoarthritis Complete uterovaginal prolapse HAS PESSARY Depression Dyslipidemia Endometritis Hx of gastroesophageal reflux (GERD) Hyperlipidemia Hypertension Hypothyroidism Insomnia Lumbar disc herniation Lumbar radiculopathy Lumbar spinal stenosis Mild cognitive impairment Myofascial pain Paroxysmal SVT (supraventricular tachycardia) Presence of pessary Surgical History H/O dilation and curettage (01/19/20) History of bunionectomy of both great toes History of tooth extraction History of total right knee replacement Hx of bilateral cataract extraction Status post hysteroscopy (01/19/20) w/ D&C for endometrial abscess Family History Mother , age 74 Congenital absence of one kidney Coronary heart disease Heart disease Kidney disease Father , age 83 Dementia Denies family history of Ovarian cancer Prostate cancer Myocardial infarction Breast cancer Lung cancer Colorectal cancer Social History Smoking Status: Never smoker Second Hand Exposure: No; Do You Dip or Chew Tobacco: No; Hx Alcohol Use: Yes Alcohol type: wine Alcohol Intake Frequency: Monthly or Less Alcohol Intake Frequency Comment: social Hx Substance Use: No Preferred Language: Ukrainian Communication Ability: Effective Visual Impairment: Limited Hearing Ability: Use of Hearing Aid Shoe Salesman Required: No Beliefs That Will Affect Care: None marital status: Current Living Situation: Spouse and Family Current Living Situation Comment: Lives with son. current occupational status: employed and retired current occupation: substitutes for school nurse Feels Safe at Home: Yes Safety Concerns: Feels Safe At This Time Childhood Exposure to Second-Hand Smoke: No Diet: regular caffeine: Yes (Coffee x 2 per day.) during the past year weight has: remained stable Dental Care, Regularly: Yes Physical Activity Frequency: Daily Seatbelt Use: always Sunscreen Use: Yes Assistive Devices: Cane Allergies Allergies Allergy/AdvReac Type Severity Reaction Status Date / Time amlodipine Allergy Intermediate Edema Verified 01/10/23 20:30 donepezil AdvReac Intermediate increased Verified 01/10/23 20:30 memory loss escitalopram AdvReac Intermediate Dizziness Verified 01/10/23 20:30 losartan AdvReac Intermediate Back pain Verified 01/10/23 20:30 -leg pain-muscle weakness-cough metoprolol AdvReac Intermediate Fatigue, Verified 01/10/23 20:30 cognitive difficulty oxycodone AdvReac Intermediate Shaking/Vom Verified 01/10/23 20:30 iting propoxyphene [From Darvon] AdvReac Intermediate Shaking/Vom Verified 01/10/23 20:30 iting sertraline [From Zoloft] AdvReac Intermediate Insomnia,ne Verified 01/10/23 20:30 rvousness Home Meds Home Medications Medication Instructions Recorded Confirmed acetaminophen 650 mg 650 mg PO Q12H PRN Pain 01/15/20 01/10/23 tablet,extended release diltiazem HCl 360 mg 360 mg PO QAM 12/20/22 01/10/23 capsule,extended release 24 hr levothyroxine 75 mcg tablet 75 mcg PO DAILYBB 12/20/22 01/10/23 atorvastatin 10 mg tablet 10 mg PO QAM 01/10/23 01/10/23 Previous Rx's Medication Instructions Recorded potassium chloride 20 mEq 20 meq PO BID 3 weeks #42 tabs 12/26/22 tablet,extended release(part/cryst) duloxetine 20 mg capsule,delayed 20 mg PO DAILY #30 caps 12/27/22 release furosemide 20 mg tablet 20 mg PO DAILY #90 tabs 01/01/23 Results & Data (ED) Vital Signs Vital Signs - 24 hr 01/10/23 17:13 01/10/23 20:10 Temperature 36.6 C Temperature Source Temporal Artery Scan Pulse Rate 69 Pulse Rate [Right Finger] 67 Respiratory Rate 18 14 Respiratory Effort / Characteristics Non-Labored Non-Labored Spontaneous Respiratory Depth Normal Normal Blood Pressure 149/69 H Blood Pressure [Right Arm] 154/81 H Blood Pressure Mean 95 Blood Pressure Mean [Right Arm] 105 Blood Pressure Position Sitting Pulse Oximetry 97 96 Oxygen Delivery Method Room Air Room Air Sepsis Recent Fever Within 48 Hours No Sepsis New/Unexplained Change in Mental Status No Sepsis Action Taken by Nursing No Action Required Laboratory Data 01/10/23 17:30 01/10/23 17:30 Lab Results 01/10/23 01/10/23 01/10/23 Range/Units 17:30 17:30 17:30 WBC 13.19 H (4.8-10.8) K/ul RBC 4.14 L (4.20-5.40) M/uL Hgb 13.1 (12.0-16.0) g/dl Hct 38.4 (37.0-47.0) % MCV 92.8 (80.0-100.0) fL MCH 31.6 (25.0-34.0) pg MCHC 34.1 (32.0-36.0) g/dL RDW Std Deviation 43.8 (36.4-46.3) fL RDW Coeff of Lillie 13.0 (11.5-14.5) % Plt Count 242 (130-400) K/uL MPV 10.8 (9.4-12.4) fL Immature Gran % (Auto) 0.5 % Neut % (Auto) 71.7 % Lymph % (Auto) 16.0 % [place] % (Auto) 10.8 % Eos % (Auto) 0.7 % Baso % (Auto) 0.3 % Neut # (Auto) 9.47 H (1.40-6.50) K/uL Lymph # (Auto) 2.11 (1.2-3.4) K/uL [place] # (Auto) 1.42 H (0.11-0.59) K/uL Eos # (Auto) 0.09 (0-0.50) K/uL Baso # (Auto) 0.04 (0-0.2) K/uL Immature Gran # (Auto) 0.06 (0.01-0.20) K/uL Sodium 134 L (136-145) mmol/L Potassium 3.6 (3.5-5.1) mmol/L Chloride 98 (98-107) mmol/L Carbon Dioxide 25 (21-32) mmol/L Anion Gap 11 (3-11) BUN 22 (6-23) mg/dl Creatinine 1.47 H (0.6-1.2) mg/dl Est Cr Clr Drug Dosing Not Reportable Est GFR ( Amer) 37.1 ml/min Est GFR (Non-Af Amer) 32.0 ml/min BUN/Creatinine Ratio 15.0 (10-20) Glucose 98 (70-99(Fasting)) mg/dl Uric Acid 9.2 H (2.6-7.2) mg/dl Calcium 9.5 (8.6-10.3) mg/dl Total Bilirubin 0.6 (0.2-1.0) mg/dl AST 17 (13-39) U/L ALT 15 (7-52) U/L Alkaline Phosphatase 94 (34-104) U/L C-Reactive Protein 2.86 H (0-0.5) mg/dl Total Protein 7.3 (6.0-8.3) gm/dl Albumin 4.0 (3.4-5.0) gm/dl Globulin 3.3 (2.5-4.0) gm/dl Albumin/Globulin Ratio 1.2 (0.9-2) Procalcitonin < 0.05 (0-0.5) ng/ml SARS-CoV-2, RNA, NAAT (NEGATIVE) 01/10/23 Range/Units 22:25 WBC (4.8-10.8) K/ul RBC (4.20-5.40) M/uL Hgb (12.0-16.0) g/dl Hct (37.0-47.0) % MCV (80.0-100.0) fL MCH (25.0-34.0) pg MCHC (32.0-36.0) g/dL RDW Std Deviation (36.4-46.3) fL RDW Coeff of Lillie (11.5-14.5) % Plt Count (130-400) K/uL MPV (9.4-12.4) fL Immature Gran % (Auto) % Neut % (Auto) % Lymph % (Auto) % [place] % (Auto) % Eos % (Auto) % Baso % (Auto) % Neut # (Auto) (1.40-6.50) K/uL Lymph # (Auto) (1.2-3.4) K/uL [place] # (Auto) (0.11-0.59) K/uL Eos # (Auto) (0-0.50) K/uL Baso # (Auto) (0-0.2) K/uL Immature Gran # (Auto) (0.01-0.20) K/uL Sodium (136-145) mmol/L Potassium (3.5-5.1) mmol/L Chloride (98-107) mmol/L Carbon Dioxide (21-32) mmol/L Anion Gap (3-11) BUN (6-23) mg/dl Creatinine (0.6-1.2) mg/dl Est Cr Clr Drug Dosing Est GFR ( Amer) ml/min Est GFR (Non-Af Amer) ml/min BUN/Creatinine Ratio (10-20) Glucose (70-99(Fasting)) mg/dl Uric Acid (2.6-7.2) mg/dl Calcium (8.6-10.3) mg/dl Total Bilirubin (0.2-1.0) mg/dl AST (13-39) U/L ALT (7-52) U/L Alkaline Phosphatase (34-104) U/L C-Reactive Protein (0-0.5) mg/dl Total Protein (6.0-8.3) gm/dl Albumin (3.4-5.0) gm/dl Globulin (2.5-4.0) gm/dl Albumin/Globulin Ratio (0.9-2) Procalcitonin (0-0.5) ng/ml SARS-CoV-2, RNA, NAAT NEGATIVE (NEGATIVE) Administered Medications Sodium Chloride (Nss 1000ml) 1,000 mls @ 125 mls/hr IV .Q8H LUIS Stop: 02/09/23 21:29 Last Admin: 01/11/23 01:49 Dose: 125 mls/hr Documented By: Infusion: 01/11/23 01:49 Dose: 125 mls/hr Documented By: Admin: 01/10/23 22:13 Dose: 125 mls/hr Documented By: TIFFANIE Discontinued Medications Ceftriaxone Sodium (Rocephin) 2,000 mg in 70 mls @ 140 mls/hr IV NOW STA Stop: 01/10/23 22:02 Last Infusion: 01/10/23 22:54 Dose: 0 mls/hr Documented By: Admin: 01/10/23 22:13 Dose: 140 mls/hr Documented By: TIFFANIE Imaging Data Radiologist's Impression: Foot X-Ray 01/10/23 17:21 RIGHT FOOT 3 VIEWS CLINICAL HISTORY: Right foot swelling. FINDINGS: 3 portable views of the right foot are compared to study dated 12/20/2022. The skeletal structures are heterogeneously osteopenic. No acute fracture seen. There is a large plantar heel spur. Degenerative spurring is seen along the dorsal aspect of the tarsal bones. There is chronic deformity of the distal first metatarsal with moderate osteoarthritic change at the first metatarsophalangeal joint. There is erosive change within the medial head of the first metatarsal. This is suspicious for osteomyelitis. Overlying soft tissue edema is noted. No additional foci of bony erosion are identified. [id number] osteophytic changes seen throughout the midfoot. There is diffuse soft tissue edema. Atherosclerotic calcification is noted in the regional arteries. IMPRESSION: 1. There is erosive change within the head of the first metatarsal, suspicious for osteomyelitis. Correlate clinically. 2. No additional foci of bony erosion are identified and no fracture is seen. 3. Diffuse soft tissue edema may represent cellulitis. Correlate clinically. 4. Osteopenia with degenerative change and heel spurs as above. Electronically signed by: Tapan Holliday M.D. 01/10/2023 6:05 PM Discharge Plan Visit Data Chief Complaint: Toe Injury/Pain Stated Complaint: R TOE CELLULITIS,OPEN WOUND ED Provider: Sandee Salazar Discharge Problem: Cellulitis of foot, right, Osteomyelitis Patient Disposition: Admitted As Inpatient Discharge Instructions Interventions: ED Discharge Assessment Last Done: 01/11/23 01:30
[2023-01-10] MEDS: SODIUM CHLORIDE 0.9% 1000ML 1,000 ML IV SCH (22:13)
[2023-01-10 22:47] LABS: C Reactive Protein 2.86 mg/dl (0-0.5)
--- NOTE | 2023-01-10 23:09 | History & Physical Report ---
Date of Service January 10, 2023 Assessment & Plan (1) Toe pain, right: Plan: 87yo Female with PMH Depression/anxiety, GERD, HLD, hypothyroidism, CKD3, HTN, mild dementia here for right foot pain. Right Toe Pain -recent concerns of cellutitis v. gout -has been treated with ceftriaxone, keflex, doxy incomplete course -uric acid 9.9, today 9.2 -XR Foot: There is erosive change within the head of the first metatarsal, suspicious for osteomyelitis. Correlate clinically. No additional foci of bony erosion are identified and no fracture is seen. Diffuse soft tissue edema may represent cellulitis. Correlate clinically. Osteopenia with degenerative change and heel spurs as above. -In ED received ceftriaxone -admit to med/surg -pain control tylenol -consult placed to orthopedics, hopefully can obtain joint aspiration to differentiate gout v. infection -continue empiric ceftriaxone -hold colchicine for now Hypothyroidism -continue levothyroxine HLD, HTN -continue atorvastatin, diltiazem -continue furosemide Depression/Anxiety -continue duloxetine FENa: regular Code Status: Full DVT PPX: SCDs PT/OT: ordered Dispo: med/surg Abril Hermosillo D.O. PGY 3, FCM (2) Depression: (3) GERD (gastroesophageal reflux disease): (4) Dyslipidemia: (5) Hypothyroidism: (6) Anxiety: (7) Chronic kidney disease, stage 3 (moderate): (8) Hypertension: (9) Mild cognitive impairment: History of Present Illness Chief Complaint: Right Foot Pain Primary Care Provider: TOR Sanchez 87yo Female with PMH Depression/anxiety, GERD, HLD, hypothyroidism, CKD3, HTN, mild dementia here for right foot pain. Patient was in ED on 12/20 for concern right foot big toe joint cellulitis given ceftriaxone in ED sent home with keflex doxycycline. Son did note patient had some visual hallucinations afterwards, saw men cutting vega, however there is history of owning in the family patient mentation improved in daytime. Patient saw her PCP 12/26 believed her right foot pain was more concern for gout rather than cellulitis stopped abx advised patient to avoid NSAIDS and manage her diet, noted uric acid level 9.9. Patient states her symptoms improved somewhat after diet change, however yesterday she again had pain redness swelling of her right 1st toe joint, noted it continued to worsen over a 12 hour period son brought her to ED. Patient denies any fever SOB nausea pain at rest. No recent change in appetite. States her foot mainly bothers her while trying to walk. She cannot recall any recent cuts or openings on her foot, does usually have cracked skin. Patient ambulates with a cane at baseline. Her son helps her manage medications. Patient has a living will, POA is son Tarik. Allergies Allergy/AdvReac Type Severity Reaction Status Date / Time amlodipine Allergy Intermediate Edema Verified 01/10/23 20:30 donepezil AdvReac Intermediate increased Verified 01/10/23 20:30 memory loss escitalopram AdvReac Intermediate Dizziness Verified 01/10/23 20:30 losartan AdvReac Intermediate Back pain Verified 01/10/23 20:30 -leg pain-muscle weakness-cough metoprolol AdvReac Intermediate Fatigue, Verified 01/10/23 20:30 cognitive difficulty oxycodone AdvReac Intermediate Shaking/Vom Verified 01/10/23 20:30 iting propoxyphene [From Darvon] AdvReac Intermediate Shaking/Vom Verified 01/10/23 20:30 iting sertraline [From Zoloft] AdvReac Intermediate Insomnia,ne Verified 01/10/23 20:30 rvousness Home Medications Medication Instructions Recorded Confirmed Type acetaminophen 650 mg 650 mg PO Q12H PRN Pain 01/15/20 01/10/23 History tablet,extended release diltiazem HCl 360 mg 360 mg PO QAM 12/20/22 01/10/23 History capsule,extended release 24 hr levothyroxine 75 mcg tablet 75 mcg PO DAILYBB 12/20/22 01/10/23 History potassium chloride 20 mEq 20 meq PO BID 3 weeks #42 tabs 12/26/22 01/10/23 Rx tablet,extended release(part/cryst) duloxetine 20 mg capsule,delayed 20 mg PO DAILY #30 caps 12/27/22 01/10/23 Rx release furosemide 20 mg tablet 20 mg PO DAILY #90 tabs 01/01/23 01/10/23 Rx atorvastatin 10 mg tablet 10 mg PO QAM 01/10/23 01/10/23 History Past Med/Surg History Medical History Anxiety Chronic kidney disease, stage 3 (moderate) Chronic osteoarthritis Complete uterovaginal prolapse HAS PESSARY Depression Dyslipidemia Endometritis Hx of gastroesophageal reflux (GERD) Hyperlipidemia Hypertension Hypothyroidism Insomnia Lumbar disc herniation Lumbar radiculopathy Lumbar spinal stenosis Mild cognitive impairment Myofascial pain Paroxysmal SVT (supraventricular tachycardia) Presence of pessary Surgical History H/O dilation and curettage (01/19/20) History of bunionectomy of both great toes History of tooth extraction History of total right knee replacement Hx of bilateral cataract extraction Status post hysteroscopy (01/19/20) w/ D&C for endometrial abscess Family History Mother , age 74 Congenital absence of one kidney Coronary heart disease Heart disease Kidney disease Father , age 83 Dementia Denies family history of Ovarian cancer Prostate cancer Myocardial infarction Breast cancer Lung cancer Colorectal cancer Social History Smoking Status: Never smoker Second Hand Exposure: No; Do You Dip or Chew Tobacco: No; Hx Alcohol Use: Yes Alcohol type: wine Alcohol Intake Frequency: Monthly or Less Alcohol Intake Frequency Comment: social Hx Substance Use: No Preferred Language: Welsh Communication Ability: Effective Visual Impairment: Limited Hearing Ability: Use of Hearing Aid Progress Man Required: No Beliefs That Will Affect Care: None marital status: Current Living Situation: Spouse and Family Current Living Situation Comment: Lives with son. current occupational status: employed and retired current occupation: substitutes for school nurse Feels Safe at Home: Yes Safety Concerns: Feels Safe At This Time Childhood Exposure to Second-Hand Smoke: No Diet: regular caffeine: Yes (Coffee x 2 per day.) during the past year weight has: remained stable Dental Care, Regularly: Yes Physical Activity Frequency: Daily Seatbelt Use: always Sunscreen Use: Yes Assistive Devices: Cane Physical Exam Constitutional: well developed, well nourished, cooperative and comfortable Eyes: PERRL, conjunctivae normal, anicteric sclerae ENMT: external ear and nose normal, oropharynx normal Neck: trachea midline, no thyromegaly Respiratory: normal respiratory effort Auscultation: lungs clear to auscultation bilaterally Cardiovascular: Rate/Rhythm: regular rate and regular rhythm Gastrointestinal (Abdomen): Inspection/Auscultation: abdomen normal to inspection Percussion/Palpation: abdomen soft; abdomen nontender Skin: Right 1st toe MTP joint noted erythema swelling pain on palpation only on joint, increased warmth. Noted flaking skin around swelling Results & Data Results & Data Vital Signs (Past 12 Hours) Vital Signs Temp Pulse Pulse Resp BP BP Pulse Ox 01/10/23 20:10 67 14 154/81 H 96 01/10/23 17:13 36.6 C 69 18 149/69 H 97 O2 Del Method 01/10/23 20:10 Room Air 01/10/23 17:13 Room Air Supervising Physician Co-Signing Physician Notes Patient seen and examined, chart reviewed case discussed wtih Dr. Hermosillo at the time of admission and I agree with the assessment and plan as documented above. Resident Activity Tracking Resident Involvement: Resident Care Provided Care Provided: Adult Hospital Medicine
[2023-01-11] MEDS ORDERED: ACETAMINOPHEN 325 MG TAB PO PRN (01:41)
[2023-01-11] MEDS: SODIUM CHLORIDE 0.9% 1000ML 1,000 ML IV SCH ×2 (01:49→04:49)
[2023-01-11] MEDS ORDERED: VANCOMYCIN CONSULT ACTIVE PRN (03:56)
[2023-01-11] MEDS ORDERED: VANCOMYCIN HCL 1,000 MG in SODIUM CHLORIDE 0.9% 250 ML IV SCH (04:00)
[2023-01-11] MEDS ORDERED: VANCOMYCIN HCL 1,250 MG in SODIUM CHLORIDE 0.9% 250 ML IV ONE (04:15)
[2023-01-11] MEDS: LEVOTHYROXINE SODIUM 75 MCG TABLET PO SCH (04:48)
--- NOTE | 2023-01-11 07:32 | Hospitalist Progress Note ---
Date of Service January 11, 2023 Assessment & Plan (1) Toe pain, right: Plan: 87yo Female with PMH Depression/anxiety, GERD, HLD, hypothyroidism, CKD3, HTN, mild dementia here for right foot pain. Right Toe Pain- ongoing issue -Recent concerns of cellulitis v. gout. Had been treated with ceftriaxone, keflex, doxy incomplete course XR Foot: * There is erosive change within the head of the first metatarsal, suspicious for osteomyelitis. Correlate clinically. No additional foci of bony erosion are identified and no fracture is seen. Diffuse soft tissue edema may represent cellulitis. Correlate clinically. Osteopenia with degenerative change and heel spurs as above. CRP elevated 2.86 Uric acid 9.9, today 9.2 Remains on IV Ceftriaxone WBC improved from 13k on admission to 8.1k, afebrile Blood cultures pending Hgb 13.1--> 10.2. ?drop from IVF. ? dehydration Will hold lasix given IVF/FOSTER/dehydration on admission, also w. concerns for gout Will decrease IVF to 75cc/hr and stop after 1L. BUN/Cr improved/resolved on repeat labs Chemistries reviewed - K low at 3.3 and 20meq PO supplementation ordered. Magnesium checked, low at 1.4 (prior low last month) Per discussion with supervising provider, trial colchicine 0.6mg BID, Solumedrol 40mg IV Q8H. If effective, may benefit from uric acid lowering medication/rasburicase Continue Ceftriaxone for now, but may need to expand coverage if no significant response to colchicine/steroids Ortho saw this morning, attempted aspiration for further eval but was not able to get enough fluid for evall ?if infection -- Dr Porter to eval this afternoon. Monitor on repeat eval/labs (2) Chronic kidney disease, stage 3 (moderate): Plan: BUN/Cr elevated to 22/1.47 on admission IVF ordered, repeat BUN/Cr 17/1.19 and will cap IVF at 1L for this afternoon. Holding lasix at present. Urine cx pending (recent rx cefdinir for possible UTI but stopped abx per PCP) Avoid NSAIDs Renal dose meds as able/avoid nephrotoxins BMP in AM (3) Hypertension: Plan: BP stable 117/72 at present continue diltiazem Holding furosemide as above while on IVF (4) Dyslipidemia: Plan: continue atorvastatin (5) Hypothyroidism: Plan: Hypothyroidism TSH wnl in November. Remains on Synthroid 75mcg daily (6) GERD (gastroesophageal reflux disease): Plan: hx in chart, not on medications per patient/son, had done steroid course a month ago without issues reported with reflux at that time and not on medication at baseline will add Pepcid prn if needed in case (7) Depression: Plan: hx depression/anxiety, chronic/stable and remains on duloxetine 20mg daily (8) Anxiety: Plan: as above (9) Mild cognitive impairment: Plan: progressive, but cooperative with myself during exam and answering questions appropriately Plan trial colchicine/solu-medrol and monitor response for possible gout If no response to treatment for gout will need to focus on infectious causes. continue ceftriaxone for now Dr Porter to eval this afternoon Admission and Anticipated Discharge Date Admission Date: January 10, 2023 Supervising Physician Co-Signing Physician Notes The patient was seen by me. Chart was reviewed. Case discussed with RUSTY Alas. This appears to be acute gout rather than infection and will be treated with parenteral steroids and colchicine. Agree with assessment and plan Subjective Eval around noon, resting in bed. Son at bedside. Reports was feeling ok but pain acting up a little. Has not been up/walking on it. Son has been w/ mother/father (admitted downstairs) and cooking for them. Family hx gout. He just had episode week before her symptoms started. Acute onset. Had been given abx. Seen by ortho this AM, not much in way of aspiration. Dr Porter to be up later to eval this afternoon. Discussed starting colchicine/steroids and should have quick response if gout. Also discussed uric acid lowering medications once out of acute flare if this is the case. If not responding, need to be more covered for infection. Remaining on Ceftriaxone for now. No chest pain/shortness of breath or other concerns voiced at this time. Son would like updated daily as able given father inpatient and coordinating the care for his parents if he is not in the room at time of eval. Questions/concerns addressed at this time. Physical Exam Physical Exam: General: WD/WN female resting in bed, NAD, son at bedside HEENT: head normocephalic, atraumatic, mmm, trachea midline, HARD OF HEARING (doesn't have her hearing aides in) Resp: CTA, no w/c/r, on room air CV: RRR, faint systolic murmur, no pitting edema/calf tenderness GI: +BS, soft/NT ; no polanco MSK/Neuro/skin: CN intact grossly, no focal deficit, answering questions approp riately, following commands as able RIGHT FOOT: 1st toe w/ slight warmth, trace erythema, bandaid present from recent attempted aspiration. +tenderness to palpation, slight edema. sensation intact Results & Data Results & Data Vital Signs (Past 12 Hours) Vital Signs Temp Pulse Resp BP Pulse Ox O2 Del Method 01/11/23 01:57 36.9 C 78 16 158/75 H 96 Room Air 01/11/23 01:27 78 16 128/53 L 98 01/10/23 23:07 68 18 145/87 H 98 Room Air 01/10/23 20:10 67 14 154/81 H 96 Room Air Laboratory Results 01/11/23 01/11/23 01/11/23 Range/Units 06:52 06:52 06:52 WBC 8.13 (4.8-10.8) K/ul RBC 3.21 L (4.20-5.40) M/uL Hgb 10.2 L D (12.0-16.0) g/dl Hct 29.0 L (37.0-47.0) % MCV 90.3 (80.0-100.0) fL MCH 31.8 (25.0-34.0) pg MCHC 35.2 (32.0-36.0) g/dL RDW Std Deviation 41.9 (36.4-46.3) fL RDW Coeff of Lillie 12.8 (11.5-14.5) % Plt Count 177 (130-400) K/uL MPV 10.5 (9.4-12.4) fL Immature Gran % (Auto) % Neut % (Auto) % Lymph % (Auto) % [place] % (Auto) % Eos % (Auto) % Baso % (Auto) % Neut # (Auto) (1.40-6.50) K/uL Lymph # (Auto) (1.2-3.4) K/uL [place] # (Auto) (0.11-0.59) K/uL Eos # (Auto) (0-0.50) K/uL Baso # (Auto) (0-0.2) K/uL Immature Gran # (Auto) (0.01-0.20) K/uL ESR 14 (0-30) mm/hr Sodium 138 (136-145) mmol/L Potassium 3.3 L (3.5-5.1) mmol/L Chloride 107 (98-107) mmol/L Carbon Dioxide 23 (21-32) mmol/L Anion Gap 8 (3-11) BUN 17 (6-23) mg/dl Creatinine 1.19 (0.6-1.2) mg/dl Est Cr Clr Drug Dosing 30.9 Est GFR ( Amer) 47.9 ml/min Est GFR (Non-Af Amer) 41.3 ml/min BUN/Creatinine Ratio 14.3 (10-20) Glucose 86 (70-99(Fasting)) mg/dl Uric Acid (2.6-7.2) mg/dl Calcium 7.9 L (8.6-10.3) mg/dl Magnesium 1.4 L (1.7-2.4) mg/dl Total Bilirubin (0.2-1.0) mg/dl AST (13-39) U/L ALT (7-52) U/L Alkaline Phosphatase (34-104) U/L C-Reactive Protein (0-0.5) mg/dl Total Protein (6.0-8.3) gm/dl Albumin (3.4-5.0) gm/dl Globulin (2.5-4.0) gm/dl Albumin/Globulin Ratio (0.9-2) Procalcitonin (0-0.5) ng/ml SARS-CoV-2, RNA, NAAT (NEGATIVE) 01/10/23 01/10/23 01/10/23 Range/Units 22:25 17:30 17:30 WBC (4.8-10.8) K/ul RBC (4.20-5.40) M/uL Hgb (12.0-16.0) g/dl Hct (37.0-47.0) % MCV (80.0-100.0) fL MCH (25.0-34.0) pg MCHC (32.0-36.0) g/dL RDW Std Deviation (36.4-46.3) fL RDW Coeff of Lillie (11.5-14.5) % Plt Count (130-400) K/uL MPV (9.4-12.4) fL Immature Gran % (Auto) % Neut % (Auto) % Lymph % (Auto) % [place] % (Auto) % Eos % (Auto) % Baso % (Auto) % Neut # (Auto) (1.40-6.50) K/uL Lymph # (Auto) (1.2-3.4) K/uL [place] # (Auto) (0.11-0.59) K/uL Eos # (Auto) (0-0.50) K/uL Baso # (Auto) (0-0.2) K/uL Immature Gran # (Auto) (0.01-0.20) K/uL ESR (0-30) mm/hr Sodium 134 L (136-145) mmol/L Potassium 3.6 (3.5-5.1) mmol/L Chloride 98 (98-107) mmol/L Carbon Dioxide 25 (21-32) mmol/L Anion Gap 11 (3-11) BUN 22 (6-23) mg/dl Creatinine 1.47 H (0.6-1.2) mg/dl Est Cr Clr Drug Dosing Not Reportable Est GFR ( Amer) 37.1 ml/min Est GFR (Non-Af Amer) 32.0 ml/min BUN/Creatinine Ratio 15.0 (10-20) Glucose 98 (70-99(Fasting)) mg/dl Uric Acid 9.2 H (2.6-7.2) mg/dl Calcium 9.5 (8.6-10.3) mg/dl Magnesium (1.7-2.4) mg/dl Total Bilirubin 0.6 (0.2-1.0) mg/dl AST 17 (13-39) U/L ALT 15 (7-52) U/L Alkaline Phosphatase 94 (34-104) U/L C-Reactive Protein 2.86 H (0-0.5) mg/dl Total Protein 7.3 (6.0-8.3) gm/dl Albumin 4.0 (3.4-5.0) gm/dl Globulin 3.3 (2.5-4.0) gm/dl Albumin/Globulin Ratio 1.2 (0.9-2) Procalcitonin < 0.05 (0-0.5) ng/ml SARS-CoV-2, RNA, NAAT NEGATIVE (NEGATIVE) 01/10/23 Range/Units 17:30 WBC 13.19 H (4.8-10.8) K/ul RBC 4.14 L (4.20-5.40) M/uL Hgb 13.1 (12.0-16.0) g/dl Hct 38.4 (37.0-47.0) % MCV 92.8 (80.0-100.0) fL MCH 31.6 (25.0-34.0) pg MCHC 34.1 (32.0-36.0) g/dL RDW Std Deviation 43.8 (36.4-46.3) fL RDW Coeff of Lillie 13.0 (11.5-14.5) % Plt Count 242 (130-400) K/uL MPV 10.8 (9.4-12.4) fL Immature Gran % (Auto) 0.5 % Neut % (Auto) 71.7 % Lymph % (Auto) 16.0 % [place] % (Auto) 10.8 % Eos % (Auto) 0.7 % Baso % (Auto) 0.3 % Neut # (Auto) 9.47 H (1.40-6.50) K/uL Lymph # (Auto) 2.11 (1.2-3.4) K/uL [place] # (Auto) 1.42 H (0.11-0.59) K/uL Eos # (Auto) 0.09 (0-0.50) K/uL Baso # (Auto) 0.04 (0-0.2) K/uL Immature Gran # (Auto) 0.06 (0.01-0.20) K/uL ESR (0-30) mm/hr Sodium (136-145) mmol/L Potassium (3.5-5.1) mmol/L Chloride (98-107) mmol/L Carbon Dioxide (21-32) mmol/L Anion Gap (3-11) BUN (6-23) mg/dl Creatinine (0.6-1.2) mg/dl Est Cr Clr Drug Dosing Est GFR ( Amer) ml/min Est GFR (Non-Af Amer) ml/min BUN/Creatinine Ratio (10-20) Glucose (70-99(Fasting)) mg/dl Uric Acid (2.6-7.2) mg/dl Calcium (8.6-10.3) mg/dl Magnesium (1.7-2.4) mg/dl Total Bilirubin (0.2-1.0) mg/dl AST (13-39) U/L ALT (7-52) U/L Alkaline Phosphatase (34-104) U/L C-Reactive Protein (0-0.5) mg/dl Total Protein (6.0-8.3) gm/dl Albumin (3.4-5.0) gm/dl Globulin (2.5-4.0) gm/dl Albumin/Globulin Ratio (0.9-2) Procalcitonin (0-0.5) ng/ml SARS-CoV-2, RNA, NAAT (NEGATIVE) Diagnostic Findings Foot X-Ray 01/10/23 17:21 RIGHT FOOT 3 VIEWS CLINICAL HISTORY: Right foot swelling. FINDINGS: 3 portable views of the right foot are compared to study dated 12/20/2022. The skeletal structures are heterogeneously osteopenic. No acute fracture seen. There is a large plantar heel spur. Degenerative spurring is seen along the dorsal aspect of the tarsal bones. There is chronic deformity of the distal first metatarsal with moderate osteoarthritic change at the first metatarsophalangeal joint. There is erosive change within the medial head of the first metatarsal. This is suspicious for osteomyelitis. Overlying soft tissue edema is noted. No additional foci of bony erosion are identified. [id number] osteophytic changes seen throughout the midfoot. There is diffuse soft tissue edema. Atherosclerotic calcification is noted in the regional arteries. IMPRESSION: 1. There is erosive change within the head of the first metatarsal, suspicious for osteomyelitis. Correlate clinically. 2. No additional foci of bony erosion are identified and no fracture is seen. 3. Diffuse soft tissue edema may represent cellulitis. Correlate clinically. 4. Osteopenia with degenerative change and heel spurs as above. Electronically signed by: Tapan Holliday M.D. 01/10/2023 6:05 PM PG Care Time/CCT Total # of Minutes Spent Total Time Spent with Patient: Total time spent is greater than 50% in coordination of care (as documented) at patient's floor/unit and/or counseling patient: Coding Level of Care Code 45721 SUB INP/OBS CARE 350MIN Diagnoses Toe pain, right M79.674 Chronic kidney disease, stage 3 (moderate) N18.3 Hypertension I10 Dyslipidemia E78.5 Hypothyroidism E03.9 GERD (gastroesophageal reflux disease) K21.9 Depression F32.9 Anxiety F41.9 Mild cognitive impairment G31.84
[2023-01-11 07:43] LABS: Hemoglobin 10.2 g/dl (12.0-16.0); Mean Corpuscular Hemoglobin 31.8 pg (25.0-34.0); Mean Corpuscular Hgb Conc 35.2 g/dL (32.0-36.0); Mean Corpuscular Volume 90.3 fL (80.0-100.0); Mean Platelet Volume 10.5 fL (9.4-12.4); Platelet Count 177 K/uL (130-400); RDW Coefficient of Variation 12.8 % (11.5-14.5); RDW Standard Deviation 41.9 fL (36.4-46.3); Red Blood Count 3.21 M/uL (4.20-5.40); White Blood Count 8.13 K/ul (4.8-10.8)
[2023-01-11 07:45] LABS: BUN Creatinine Ratio 14.3 (10-20); Calcium 7.9 mg/dl (8.6-10.3); Creatinine Clr Calc Pharmacy 30.9 ml/min; Est GFR (African American) 47.9 ml/min; Est GFR (Non-African American) 41.3 ml/min; Potassium 3.3 mmol/L (3.5-5.1)
[2023-01-11] MEDS ORDERED: POTASSIUM CHLORIDE CRTAB 20 MEQ TABCR PO STA (08:24)
[2023-01-11] MEDS ORDERED: FUROSEMIDE 20 MG TAB PO SCH (09:00)
[2023-01-11] MEDS: dilTIAZem HCL 180 MG CAPCR PO SCH (09:20)
[2023-01-11] MEDS: ATORVASTATIN 10 MG TAB PO SCH (09:20)
[2023-01-11] MEDS: DULoxetine HCL 20 MG CAP PO SCH (09:21)
[2023-01-11 09:28] LABS: Magnesium 1.4 mg/dl (1.7-2.4)
[2023-01-11] MEDS: MAGNESIUM SULFATE / D5W 1 GM/100 ML BAG IV SCH ×3 (10:42→14:59)
[2023-01-11] MEDS ORDERED: ETHYL CHLORIDE AER SPR 100 ML CAN EXT ONE (11:21)
--- NOTE | 2023-01-11 12:10 | Orthopedic Consultation ---
Date of Service January 11, 2023 Assessment & Plan (1) Cellulitis of foot, right: Most likely a gouty flareup of the right great toe. I did try to aspirate fluid from around the IP joint however i couldnt get any fluid. Patient has elevated uric acid levels. Consider steroids to see how the pain and swelling responds. Consider MRI of great toe if symptoms do not improve on steroids and colchicine. History of Present Illness Reason for Consultation: . Requesting Physician: . Attending Physician: David Swift MD Patient is an 87 y/o female who has been admitted to [facility] for other medical issues. Orthopedics consulted for a swollen and red right great toe. She states that she has had symptoms for 2 weeks. No injury or trauma to the toe. She states that she has no history of gout. She has not appreciated any wounds over the past 2 weeks. She states that the swelling went down after a week but them flared up again after she started wearing shoes. Allergies Allergy/AdvReac Type Severity Reaction Status Date / Time amlodipine Allergy Intermediate Edema Verified 01/10/23 20:30 donepezil AdvReac Intermediate increased Verified 01/10/23 20:30 memory loss escitalopram AdvReac Intermediate Dizziness Verified 01/10/23 20:30 losartan AdvReac Intermediate Back pain Verified 01/10/23 20:30 -leg pain-muscle weakness-cough metoprolol AdvReac Intermediate Fatigue, Verified 01/10/23 20:30 cognitive difficulty oxycodone AdvReac Intermediate Shaking/Vom Verified 01/10/23 20:30 iting propoxyphene [From Darvon] AdvReac Intermediate Shaking/Vom Verified 01/10/23 20:30 iting sertraline [From Zoloft] AdvReac Intermediate Insomnia,ne Verified 01/10/23 20:30 rvousness Home Medications Medication Instructions Recorded Confirmed Type acetaminophen 650 mg 650 mg PO Q12H PRN Pain 01/15/20 01/10/23 History tablet,extended release diltiazem HCl 360 mg 360 mg PO QAM 12/20/22 01/10/23 History capsule,extended release 24 hr levothyroxine 75 mcg tablet 75 mcg PO DAILYBB 12/20/22 01/10/23 History potassium chloride 20 mEq 20 meq PO BID 3 weeks #42 tabs 06/27/23 07/12/23 Rx tablet,extended release(part/cryst) duloxetine 20 mg capsule,delayed 20 mg PO DAILY #30 caps 12/27/22 01/10/23 Rx release furosemide 20 mg tablet 20 mg PO DAILY #90 tabs 01/01/23 01/10/23 Rx atorvastatin 10 mg tablet 10 mg PO QAM 01/10/23 01/10/23 History Past Med/Surg History Medical History Anxiety Chronic kidney disease, stage 3 (moderate) Chronic osteoarthritis Complete uterovaginal prolapse HAS PESSARY Depression Dyslipidemia Endometritis Hx of gastroesophageal reflux (GERD) Hyperlipidemia Hypertension Hypothyroidism Insomnia Lumbar disc herniation Lumbar radiculopathy Lumbar spinal stenosis Mild cognitive impairment Myofascial pain Paroxysmal SVT (supraventricular tachycardia) Presence of pessary Surgical History H/O dilation and curettage (01/19/20) History of bunionectomy of both great toes History of tooth extraction History of total right knee replacement Hx of bilateral cataract extraction Status post hysteroscopy (01/19/20) w/ D&C for endometrial abscess Family History Mother , age 74 Congenital absence of one kidney Coronary heart disease Heart disease Kidney disease Father , age 83 Dementia Denies family history of Ovarian cancer Prostate cancer Myocardial infarction Breast cancer Lung cancer Colorectal cancer Social History Smoking Status: Never smoker Second Hand Exposure: No; Do You Dip or Chew Tobacco: No; Hx Alcohol Use: Yes Alcohol type: wine Alcohol Intake Frequency: Monthly or Less Alcohol Intake Frequency Comment: social Hx Substance Use: No Preferred Language: Burkinan Communication Ability: Effective Visual Impairment: Limited Hearing Ability: Use of Hearing Aid [employer] Required: No Beliefs That Will Affect Care: None marital status: Current Living Situation: Spouse and Family Current Living Situation Comment: Lives with son. current occupational status: employed and retired current occupation: substitutes for school nurse Feels Safe at Home: Yes Safety Concerns: Feels Safe At This Time Childhood Exposure to Second-Hand Smoke: No Diet: regular caffeine: Yes (Coffee x 2 per day.) during the past year weight has: remained stable Dental Care, Regularly: Yes Physical Activity Frequency: Daily Seatbelt Use: always Sunscreen Use: Yes Assistive Devices: Cane Review of Systems All systems reviewed & are unremarkable except as noted in HPI & below. Physical Exam Patient is alert and oriented x3. Sitting comfortably in bed. Significant swelling and erythema around the IP joint of the right great toe. Pain to palpation. Neurovascularly intact. Results & Data Results & Data Laboratory Results . Diagnostic Findings . PG Care Time/CCT Total # of Minutes Spent Total Time Spent with Patient: Total time spent is greater than 50% in coordination of care (as documented) at patient's floor/unit and/or counseling patient: Coding Level of Care Code 28905 IN/OBS CONSULT LVL 3,45M Diagnoses Cellulitis of foot, right L03.115
[2023-01-11] MEDS ORDERED: FAMOTIDINE 20 MG in SYRINGE 3 ML IV PRN (12:45)
[2023-01-11] MEDS: methylPREDNISolone 40 MG in SYRINGE 0 ML IV SCH ×2 (13:42→21:20)
[2023-01-11] MEDS: COLCHICINE 0.6 MG TAB PO SCH ×2 (13:42→21:20)
[2023-01-11] MEDS ORDERED: FAMOTIDINE 20 MG TAB PO PRN (13:57)
[2023-01-11] MEDS ORDERED: cefTRIAXone SODIUM 2,000 MG in DEXTROSE 5% 50 ML IV SCH (22:00)
--- NOTE | 2023-01-11 22:07 | Billing Data ---
Date of Service January 10, 2023 Coding Level of Care Code 07665 INT INP/OBS CARE
[2023-01-12] MEDS: methylPREDNISolone 40 MG in SYRINGE 0 ML IV SCH (05:19)
[2023-01-12] MEDS: LEVOTHYROXINE SODIUM 75 MCG TABLET PO SCH (05:22)
[2023-01-12 06:55] LABS: Calcium 8.5 mg/dl (8.6-10.3); Creatinine Clr Calc Pharmacy 32.9 ml/min; Est GFR (African American) 51.5 ml/min; Est GFR (Non-African American) 44.4 ml/min; Magnesium 2.1 mg/dl (1.7-2.4); Potassium 3.6 mmol/L (3.5-5.1)
[2023-01-12 07:26] LABS: Lyme Ab IgG w/WB Rflx Negative (Negative); Lyme Ab IgM w/WB Rflx Negative (Negative)
--- NOTE | 2023-01-12 07:32 | Hospitalist Progress Note ---
Date of Service January 12, 2023 Assessment & Plan (1) Toe pain, right: Plan: 87yo Female with PMH Depression/anxiety, GERD, HLD, hypothyroidism, CKD3, HTN, mild dementia here for right foot pain. Right Toe Pain- ongoing issue -Recent concerns of cellulitis v. gout. Had been treated with ceftriaxone, keflex, doxy incomplete course XR Foot: * There is erosive change within the head of the first metatarsal, suspicious for osteomyelitis. Correlate clinically. No additional foci of bony erosion are identified and no fracture is seen. Diffuse soft tissue edema may represent cellulitis. Correlate clinically. Osteopenia with degenerative change and heel spurs as above. CRP elevated 2.86 Uric acid 9.9, today 9.2 Remains on IV Ceftriaxone WBC improved from 13k on admission to 8.1k, afebrile Blood cultures pending Hgb 13.1--> 10.2. ?drop from IVF. ? dehydration Will hold lasix given IVF/FOSTER/dehydration on admission, also w. concerns for gout Will decrease IVF to 75cc/hr and stop after 1L. BUN/Cr improved/resolved on repeat labs Chemistries reviewed - K low at 3.3 and 20meq PO supplementation ordered. Magnesium checked, low at 1.4 (prior low last month) Per discussion with supervising provider, trial colchicine 0.6mg BID, Solumedrol 40mg IV Q8H. If effective, may benefit from uric acid lowering medication/rasburicase at baseline to prevent recurrance Continue Ceftriaxone for now, but may need to expand coverage if no significant response to colchicine/steroids Ortho saw this morning, attempted aspiration for further eval but was not able to get enough fluid for evall ?if infection -- Dr Porter to eval this afternoon. Monitor on repeat eval/labs (2) Chronic kidney disease, stage 3 (moderate): Plan: BUN/Cr elevated to 22/1.47 on admission IVF ordered, repeat BUN/Cr 17/1.19 and IVF capped at 1L, lasix placed on hold Kidney function remains stable with Cr 1.12 Urine cx pending (recent rx cefdinir for possible UTI but stopped abx per PCP) -- urine cx w/ repeat collection recommended. Already received rocephin Avoid NSAIDs Renal dose meds as able/avoid nephrotoxins BMP in AM (3) Hypertension: Plan: BP stable 117/72 at present continue diltiazem Holding furosemide as above while on IVF (4) Dyslipidemia: Plan: continue atorvastatin (5) Hypothyroidism: Plan: Hypothyroidism TSH wnl in November. Remains on Synthroid 75mcg daily (6) GERD (gastroesophageal reflux disease): Plan: hx in chart, not on medications per patient/son, had done steroid course a month ago without issues reported with reflux at that time and not on medication at baseline will add Pepcid prn if needed in case (7) Depression: Plan: hx depression/anxiety, chronic/stable and remains on duloxetine 20mg daily (8) Anxiety: Plan: as above (9) Mild cognitive impairment: Plan: progressive, but cooperative with myself during exam and answering questions appropriately Plan trial colchicine/solu-medrol and monitor response for possible gout If no response to treatment for gout will need to focus on infectious causes. continue ceftriaxone for now Dr Porter to eval this afternoon Admission and Anticipated Discharge Date Admission Date: January 10, 2023 Results & Data Results & Data Vital Signs (Past 12 Hours) Vital Signs Temp Pulse Resp BP Pulse Ox O2 Del Method 01/11/23 22:31 36.6 C 78 18 136/76 97 Room Air Laboratory Results 01/12/23 01/12/23 01/12/23 Range/Units 06:03 06:03 06:03 WBC Cancelled (4.8-10.8) K/ul RBC Cancelled (4.20-5.40) M/uL Hgb Cancelled (12.0-16.0) g/dl Hct Cancelled (37.0-47.0) % MCV Cancelled (80.0-100.0) fL MCH Cancelled (25.0-34.0) pg MCHC Cancelled (32.0-36.0) g/dL RDW Std Deviation Cancelled (36.4-46.3) fL RDW Coeff of Lillie Cancelled (11.5-14.5) % Plt Count Cancelled (130-400) K/uL MPV Cancelled (9.4-12.4) fL Immature Gran % (Auto) Cancelled Neut % (Auto) Cancelled Lymph % (Auto) Cancelled [place] % (Auto) Cancelled Eos % (Auto) Cancelled Baso % (Auto) Cancelled Neut # (Auto) Cancelled Lymph # (Auto) Cancelled [place] # (Auto) Cancelled Eos # (Auto) Cancelled Baso # (Auto) Cancelled Immature Gran # (Auto) Cancelled Absolute Nucleated RBC Cancelled Nucleated RBC % (auto) Cancelled Neutrophils % (Manual) Cancelled Band Neutrophils % Cancelled Lymphocytes % (Manual) Cancelled Prolymphocyte % Cancelled Reactive Lymphs % (Man) Cancelled Monocytes % (Manual) Cancelled Eosinophils % (Manual) Cancelled Basophils % (Manual) Cancelled Metamyelocytes % (Man) Cancelled Myelocytes % (Man) Cancelled Promyelocytes % (Man) Cancelled Blast Cells % (Manual) Cancelled Plasma Cell % (Manual) Cancelled Other Cells % Cancelled Nucleated RBC % Cancelled Neutrophils # (Manual) Cancelled Band Neutrophils # Cancelled Total Absolute Neuts Cancelled Lymphocytes # (Manual) Cancelled Prolymphocyte # Cancelled Reactive Lymphs # Cancelled Total Abs Lymphocytes Cancelled Monocytes # (Manual) Cancelled Eosinophils # (Manual) Cancelled Basophils # (Manual) Cancelled Metamyelocytes # (Man) Cancelled Myelocytes # (Manual) Cancelled Promyelocytes # (Man) Cancelled Blast Cells # (Man) Cancelled Plasma Cell # (Manual) Cancelled Other Cells # Cancelled Nucleated RBCs # (Man) Cancelled Hypersegmented Neuts Cancelled Hyposegmented Neuts Cancelled Hypogranular Neuts Cancelled Large Granular Lymphs Cancelled # Lrg Granular Lymphs Cancelled Hairy Cells Cancelled Smudge Cells Cancelled Toxic Granulation Cancelled Toxic Vacuolation Cancelled Dohle Bodies Cancelled [place] Rods Cancelled Platelet Estimate Cancelled Hypogranular Platelets Cancelled Giant Platelets Cancelled Platelet Satelliting Cancelled RBC Morphology Cancelled Polychromasia Cancelled Hypochromasia Cancelled Poikilocytosis Cancelled Basophilic Stippling Cancelled Anisocytosis Cancelled Microcytosis Cancelled Macrocytosis Cancelled Spherocytes Cancelled Pappenheimer Bodies Cancelled Sickle Cells Cancelled Target Cells Cancelled Tear Drop Cells Cancelled Ovalocytes Cancelled Stomatocytes Cancelled [place] Bodies Cancelled Echinocytes Cancelled Acanthocytes (Spur) Cancelled Rouleaux Cancelled RBC Agglutinates Cancelled Schistocytes Cancelled ESR (0-30) mm/hr [place] Cell Cancelled Sodium 136 (136-145) mmol/L Potassium 3.6 (3.5-5.1) mmol/L Chloride 107 (98-107) mmol/L Carbon Dioxide 21 (21-32) mmol/L Anion Gap 8 (3-11) BUN 19 (6-23) mg/dl Creatinine 1.12 (0.6-1.2) mg/dl Est Cr Clr Drug Dosing 32.9 ml/min Est GFR ( Amer) 51.5 ml/min Est GFR (Non-Af Amer) 44.4 ml/min BUN/Creatinine Ratio 17.0 (10-20) Glucose 162 H (70-99(Fasting)) mg/dl Calcium 8.5 L (8.6-10.3) mg/dl Magnesium 2.1 (1.7-2.4) mg/dl Random Vancomycin (10-20) mcg/ml Lyme Disease IgG Ab Negative (Negative) Lyme Disease IgM Ab Negative (Negative) Blood Parasites ID Cancelled 01/11/23 01/11/23 01/11/23 Range/Units 12:32 06:52 06:52 WBC (4.8-10.8) K/ul RBC (4.20-5.40) M/uL Hgb (12.0-16.0) g/dl Hct (37.0-47.0) % MCV (80.0-100.0) fL MCH (25.0-34.0) pg MCHC (32.0-36.0) g/dL RDW Std Deviation (36.4-46.3) fL RDW Coeff of Lillie (11.5-14.5) % Plt Count (130-400) K/uL MPV (9.4-12.4) fL Immature Gran % (Auto) Neut % (Auto) Lymph % (Auto) [place] % (Auto) Eos % (Auto) Baso % (Auto) Neut # (Auto) Lymph # (Auto) [place] # (Auto) Eos # (Auto) Baso # (Auto) Immature Gran # (Auto) Absolute Nucleated RBC Nucleated RBC % (auto) Neutrophils % (Manual) Band Neutrophils % Lymphocytes % (Manual) Prolymphocyte % Reactive Lymphs % (Man) Monocytes % (Manual) Eosinophils % (Manual) Basophils % (Manual) Metamyelocytes % (Man) Myelocytes % (Man) Promyelocytes % (Man) Blast Cells % (Manual) Plasma Cell % (Manual) Other Cells % Nucleated RBC % Neutrophils # (Manual) Band Neutrophils # Total Absolute Neuts Lymphocytes # (Manual) Prolymphocyte # Reactive Lymphs # Total Abs Lymphocytes Monocytes # (Manual) Eosinophils # (Manual) Basophils # (Manual) Metamyelocytes # (Man) Myelocytes # (Manual) Promyelocytes # (Man) Blast Cells # (Man) Plasma Cell # (Manual) Other Cells # Nucleated RBCs # (Man) Hypersegmented Neuts Hyposegmented Neuts Hypogranular Neuts Large Granular Lymphs # Lrg Granular Lymphs Hairy Cells Smudge Cells Toxic Granulation Toxic Vacuolation Dohle Bodies [place] Rods Platelet Estimate Hypogranular Platelets Giant Platelets Platelet Satelliting RBC Morphology Polychromasia Hypochromasia Poikilocytosis Basophilic Stippling Anisocytosis Microcytosis Macrocytosis Spherocytes Pappenheimer Bodies Sickle Cells Target Cells Tear Drop Cells Ovalocytes Stomatocytes [place] Bodies Echinocytes Acanthocytes (Spur) Rouleaux RBC Agglutinates Schistocytes ESR 14 (0-30) mm/hr [place]zary Cell Sodium 138 (136-145) mmol/L Potassium 3.3 L (3.5-5.1) mmol/L Chloride 107 (98-107) mmol/L Carbon Dioxide 23 (21-32) mmol/L Anion Gap 8 (3-11) BUN 17 (6-23) mg/dl Creatinine 1.19 (0.6-1.2) mg/dl Est Cr Clr Drug Dosing 30.9 ml/min Est GFR ( Amer) 47.9 ml/min Est GFR (Non-Af Amer) 41.3 ml/min BUN/Creatinine Ratio 14.3 (10-20) Glucose 86 (70-99(Fasting)) mg/dl Calcium 7.9 L (8.6-10.3) mg/dl Magnesium 1.4 L (1.7-2.4) mg/dl Random Vancomycin 12.6 (10-20) mcg/ml Lyme Disease IgG Ab (Negative) Lyme Disease IgM Ab (Negative) Blood Parasites ID 01/11/23 Range/Units 06:52 WBC 8.13 (4.8-10.8) K/ul RBC 3.21 L (4.20-5.40) M/uL Hgb 10.2 L D (12.0-16.0) g/dl Hct 29.0 L (37.0-47.0) % MCV 90.3 (80.0-100.0) fL MCH 31.8 (25.0-34.0) pg MCHC 35.2 (32.0-36.0) g/dL RDW Std Deviation 41.9 (36.4-46.3) fL RDW Coeff of Lillie 12.8 (11.5-14.5) % Plt Count 177 (130-400) K/uL MPV 10.5 (9.4-12.4) fL Immature Gran % (Auto) Neut % (Auto) Lymph % (Auto) [place] % (Auto) Eos % (Auto) Baso % (Auto) Neut # (Auto) Lymph # (Auto) [place] # (Auto) Eos # (Auto) Baso # (Auto) Immature Gran # (Auto) Absolute Nucleated RBC Nucleated RBC % (auto) Neutrophils % (Manual) Band Neutrophils % Lymphocytes % (Manual) Prolymphocyte % Reactive Lymphs % (Man) Monocytes % (Manual) Eosinophils % (Manual) Basophils % (Manual) Metamyelocytes % (Man) Myelocytes % (Man) Promyelocytes % (Man) Blast Cells % (Manual) Plasma Cell % (Manual) Other Cells % Nucleated RBC % Neutrophils # (Manual) Band Neutrophils # Total Absolute Neuts Lymphocytes # (Manual) Prolymphocyte # Reactive Lymphs # Total Abs Lymphocytes Monocytes # (Manual) Eosinophils # (Manual) Basophils # (Manual) Metamyelocytes # (Man) Myelocytes # (Manual) Promyelocytes # (Man) Blast Cells # (Man) Plasma Cell # (Manual) Other Cells # Nucleated RBCs # (Man) Hypersegmented Neuts Hyposegmented Neuts Hypogranular Neuts Large Granular Lymphs # Lrg Granular Lymphs Hairy Cells Smudge Cells Toxic Granulation Toxic Vacuolation Dohle Bodies [place] Rods Platelet Estimate Hypogranular Platelets Giant Platelets Platelet Satelliting RBC Morphology Polychromasia Hypochromasia Poikilocytosis Basophilic Stippling Anisocytosis Microcytosis Macrocytosis Spherocytes Pappenheimer Bodies Sickle Cells Target Cells Tear Drop Cells Ovalocytes Stomatocytes [place] Bodies Echinocytes Acanthocytes (Spur) Rouleaux RBC Agglutinates Schistocytes ESR (0-30) mm/hr Sezary Cell Sodium (136-145) mmol/L Potassium (3.5-5.1) mmol/L Chloride (98-107) mmol/L Carbon Dioxide (21-32) mmol/L Anion Gap (3-11) BUN (6-23) mg/dl Creatinine (0.6-1.2) mg/dl Est Cr Clr Drug Dosing ml/min Est GFR ( Amer) ml/min Est GFR (Non-Af Amer) ml/min BUN/Creatinine Ratio (10-20) Glucose (70-99(Fasting)) mg/dl Calcium (8.6-10.3) mg/dl Magnesium (1.7-2.4) mg/dl Random Vancomycin (10-20) mcg/ml Lyme Disease IgG Ab (Negative) Lyme Disease IgM Ab (Negative) Blood Parasites ID PG Care Time/CCT Total # of Minutes Spent Total Time Spent with Patient: Total time spent is greater than 50% in coordination of care (as documented) at patient's floor/unit and/or counseling patient: Coding Diagnoses Toe pain, right M79.674 Chronic kidney disease, stage 3 (moderate) N18.3 Hypertension I10 Dyslipidemia E78.5 Hypothyroidism E03.9 GERD (gastroesophageal reflux disease) K21.9 Depression F32.9 Anxiety F41.9 Mild cognitive impairment G31.84
[2023-01-12] MEDS: COLCHICINE 0.6 MG TAB PO SCH (07:52)
[2023-01-12] MEDS: DULoxetine HCL 20 MG CAP PO SCH (07:53)
[2023-01-12] MEDS: ATORVASTATIN 10 MG TAB PO SCH (07:53)
[2023-01-12] MEDS: dilTIAZem HCL 180 MG CAPCR PO SCH (07:53)
[2023-01-12 08:15] LABS: Basophils # (auto) 0.01 K/uL (0-0.2); Basophils % (auto) 0.1 %; Hematocrit (blood only) 31.6 % (37.0-47.0); Hemoglobin 11.3 g/dl (12.0-16.0); Immature Granulocytes # (auto) 0.04 K/uL (0.01-0.20); Immature Granulocytes % (auto) 0.4 %; Lymphocytes # (auto) 0.79 K/uL (1.2-3.4); Lymphocytes % (auto) 8.1 %; Mean Corpuscular Hemoglobin 31.8 pg (25.0-34.0); Mean Corpuscular Hgb Conc 35.8 g/dL (32.0-36.0); Mean Platelet Volume 10.5 fL (9.4-12.4); Monocytes # (auto) 0.17 K/uL (0.11-0.59); Monocytes % (auto) 1.7 %; Neutrophils % (auto) 89.7 %; Platelet Count 196 K/uL (130-400); RDW Coefficient of Variation 12.5 % (11.5-14.5); RDW Standard Deviation 40.4 fL (36.4-46.3); Red Blood Count 3.55 M/uL (4.20-5.40); White Blood Count 9.81 K/ul (4.8-10.8)
--- NOTE | 2023-01-12 10:52 | Discharge Summary ---
Date of Service January 12, 2023 Admission HPI Per Admitting Provider 87yo Female with PMH Depression/anxiety, GERD, HLD, hypothyroidism, CKD3, HTN, mild dementia here for right foot pain. Patient was in ED on 12/20 for concern right foot big toe joint cellulitis given ceftriaxone in ED sent home with keflex doxycycline. Son did note patient had some visual hallucinations afterwards, saw men cutting vega, however there is history of owning in the family patient mentation improved in daytime. Patient saw her PCP 12/26 believed her right foot pain was more concern for gout rather than cellulitis stopped abx advised patient to avoid NSAIDS and manage her diet, noted uric acid level 9.9. Patient states her symptoms improved somewhat after diet change, however yesterday she again had pain redness swelling of her right 1st toe joint, noted it continued to worsen over a 12 hour period son brought her to ED. Patient denies any fever SOB nausea pain at rest. No recent change in appetite. States her foot mainly bothers her while trying to walk. She cannot recall any recent cuts or openings on her foot, does usually have cracked skin. Patient ambulates with a cane at baseline. Her son helps her manage medications. Patient has a living will, POA is son Tarik. Admission Exam Per Admitting Provider Constitutional: well developed, well nourished, cooperative and comfortable Eyes: PERRL, conjunctivae normal, anicteric sclerae ENMT: external ear and nose normal, oropharynx normal Neck: trachea midline, no thyromegaly Respiratory: normal respiratory effort Auscultation: lungs clear to auscultation bilaterally Cardiovascular: Rate/Rhythm: regular rate and regular rhythm Gastrointestinal (Abdomen): Inspection/Auscultation: abdomen normal to inspection Percussion/Palpation: abdomen soft; abdomen nontender Skin: Right 1st toe MTP joint noted erythema swelling pain on palpation only on joint, increased warmth. Noted flaking skin around swelling Principal Diagnosis Acute Gout Discharge Exam General: WD/WN sitting up in chair, visiting , NAD, son at bedside HEENT: head normocephalic, atraumatic, mmm, trachea midline, HARD OF HEARING (doesn't have her hearing aides in) Resp: CTA, no w/c/r, on room air CV: RRR, faint systolic murmur, no pitting edema/calf tenderness GI: +BS, soft/NT ; no polanco MSK/Neuro/skin: CN intact grossly, no focal deficit, answering questions appropriately, following commands as able RIGHT FOOT: 1st toe w/ slight warmth - MUCH improved, +edema (decreased), significant decrease in tenderness, improvement in ROM without discomfort Discharge Data Allergies Allergy/AdvReac Type Severity Reaction Status Date / Time amlodipine Allergy Intermediate Edema Verified 01/10/23 20:30 donepezil AdvReac Intermediate increased Verified 01/10/23 20:30 memory loss escitalopram AdvReac Intermediate Dizziness Verified 01/10/23 20:30 losartan AdvReac Intermediate Back pain Verified 01/10/23 20:30 -leg pain-muscle weakness-cough metoprolol AdvReac Intermediate Fatigue, Verified 01/10/23 20:30 cognitive difficulty oxycodone AdvReac Intermediate Shaking/Vom Verified 01/10/23 20:30 iting propoxyphene [From Darvon] AdvReac Intermediate Shaking/Vom Verified 01/10/23 20:30 iting sertraline [From Zoloft] AdvReac Intermediate Insomnia,ne Verified 01/10/23 20:30 rvousness Consultations 01/10/23 22:41 ED Decision to Admit Stat 01/10/23 23:17 Consult Orthopedic Surgery Routine Ordered Studies Foot X-Ray 01/10/23 17:21 RIGHT FOOT 3 VIEWS CLINICAL HISTORY: Right foot swelling. FINDINGS: 3 portable views of the right foot are compared to study dated 12/20/2022. The skeletal structures are heterogeneously osteopenic. No acute fracture seen. There is a large plantar heel spur. Degenerative spurring is seen along the dorsal aspect of the tarsal bones. There is chronic deformity of the distal first metatarsal with moderate osteoarthritic change at the first metatarsophalangeal joint. There is erosive change within the medial head of the first metatarsal. This is suspicious for osteomyelitis. Overlying soft tissue edema is noted. No additional foci of bony erosion are identified. [id number] osteophytic changes seen throughout the midfoot. There is diffuse soft tissue edema. Atherosclerotic calcification is noted in the regional arteries. IMPRESSION: 1. There is erosive change within the head of the first metatarsal, suspicious for osteomyelitis. Correlate clinically. 2. No additional foci of bony erosion are identified and no fracture is seen. 3. Diffuse soft tissue edema may represent cellulitis. Correlate clinically. 4. Osteopenia with degenerative change and heel spurs as above. Electronically signed by: Tapan Holliday M.D. 01/10/2023 6:05 PM Hospital Course (1) Toe pain, right: 87yo Female with PMH Depression/anxiety, GERD, HLD, hypothyroidism, CKD3, HTN, mild dementia here for right foot pain. Right Toe Pain that had been ongoing issue despite abx treatment recently. Son recently w/ gout and has been cooking for his parents. instructed to limit red meats/etc Imaging w/ erosive changes within head first metatarsal suspicious for osteo, without foci of bony erosion. diffuse soft tissue edema possible cellulitis. CRP elevated but nonspecific and appeared concerning for gout given lack of response w/ abx therapy Concerns for gout given 1st toe and elevated uric acid IVF provided, lasix placed on hold WBC elevated on admission and normalized on repeat Was placed on Ceftriaxone empirically for concerns cellulitis but appeared to be more c/w gout flare on exam Ortho consulted for possible aspiration for further eval but was unsuccessful and trial of colchicine and methylprednisolone for acute gout to see if responded to treatment, which she responded nicely. Decreased pain/edema/erythema to foot, evaluated by therapy and stable for dc home. in hospital and going to [facility], son would like to take Mrs Culp home with him Blood culture remained negative at discharge, afebrile At discharge, patient sent with prednisone taper 10mg TID x 2 days, decrease to 10mg BID x 2 days then 10mg daily x 2 days then stop. Colchicine BID - educated on side effects/diarrhea Outpt f/u PCP -- can discuss uric acid lowering agent in follow up once current flare resolved (2) Chronic kidney disease, stage 3 (moderate): BUN/Cr elevated to 22/1.47 on admission with acute kidney injury IVF provided and lasix placed on hold, repeat remained stable. No significant evidence for volume overload and placed lasix on hold until Sunday unless significant volume retention/edema (K to be held while off as well -- she takes lasix M/W/ with such) Meds renally dosed/nephrotoxins avoided (3) Hypertension: BP stable 136/76 Remained on diltiazem, lasix held given gout as above To resume lasix in next couple days to prevent worsening gout (4) Dyslipidemia: continued atorvastatin (5) Hypothyroidism: Hypothyroidism TSH wnl in November. Remained on Synthroid 75mcg daily (6) GERD (gastroesophageal reflux disease): hx in chart, not on medications per patient/son, had done steroid course a month ago without issues reported with reflux at that time and not on medication at baseline (7) Depression: hx depression/anxiety, chronic/stable and remained on duloxetine 20mg daily (8) Anxiety: as above (9) Mild cognitive impairment: progressive, but cooperative with myself during exam and answering questions appropriately intermittent forgetfullness at baseline son at home caring for her PT/OT consulted while inpatient stable for dc home w/ son (10) Hypomagnesemia: checked mag level give hypokalemia (likely from lasix use) and prior low 1.4 in November in system Mag low 1.4--> IV replacement ordered and repeat resolved at 2.1 Plan discharge on prednisone taper, colchicine f/u PCP about uric acid lowering agent once acute flare resolved Total Time Total Time Spent Total Time Spent (In Minutes): 45 Discharge Plan Discharge Items Patient Disposition: Home - Self-Care Reason For Visit: RIGHT FOOT PAIN Discharge Diagnosis: Gout Goals: You have been hospitalized for an acute medical problem. During your stay at [facility], we have made an effort to correct the problem that brought you to the hospital while keeping you as comfortable as possible. Medications were used to bring your condition under control and your discharge instructions will include directions for any medications you should take after leaving the hospital. Please make sure you see your Primary Care Provider as part of your follow up plan. Activity: Resume your previous activity Non-emergency contact: Primary Care Provider Call non-emergency contact if: you have any medication questions, your symptoms worsen, your pain is not controlled and you have a fever Follow-up/Referrals: Tristian Marquez CRNP [Primary Care Provider] - 01/19/23 11:20 am (Appointment with Maribell OJEDA instead) Diet: Heart Healthy Addtl Attending Provider Instructions: You have been hospitalized for acute pain in your foot/toe. Uric acid levels were elevated which was concerning for gout, and we consulted orthopedics and aspiration was unsuccessful. This was unsuccessful, however we started treatment for gout and you have had significant improvement. You will be continued on medication for treatment called colchicine and prednisone (a steroid). You will take the colchicine 0.6mg by mouth twice daily and for the prednisone it will be 10mg by mouth three times a day for two days, then 10mg by mouth TWICE a day for two days, then 10mg by mouth ONCE a day for two days and stop. Please note as discussed, colchicine can cause diarrhea. You should hold your furosemide and potassium until Sunday unless having increased swelling in your legs. Once over this acute gout flare, they can add medication to prevent this from coming back but we do not order this in the acute flare. Please follow up with primary care in the next 7-10 days to monitor your response. Please return to the ER with any worsening pain, fever, inability to ambulate, chest pain, shortness of breath, or for any other symptoms concerning for you. It has been a pleasure being a part of the medical team providing for you while you have been in the hospital. Take care! Pending Studies at Discharge: Yes Studies:: blood cultures -- no growth to date Stand-Alone Forms: My [facility] Medications and DC Order Prescriptions: New colchicine [Colcrys] 0.6 mg Tablet 0.6 mg PO BID 7 Days Qty: 14 0RF prednisone 10 mg Tablet See Rx Instructions .ROUTE .COMPLEX Qty: 11 0RF Rx Instructions: 10mg by mouth three times daily for two days, then decrease to 10mg by mouth twice daily for two days, then decrease to 10mg by mouth once daily for two days Continued duloxetine 20 mg capsule,delayed release(DR/EC) 20 mg PO DAILY Qty: 30 2RF acetaminophen 650 mg Tablet Extended Release 650 mg PO Q12H PRN (Reason: Pain) atorvastatin 10 mg tablet 10 mg PO QAM diltiazem HCl 360 mg capsule,extended release 24hr 360 mg PO QAM levothyroxine 75 mcg tablet 75 mcg PO DAILYBB Held potassium chloride 20 mEq tablet,ER particles/crystals 20 meq PO BID 21 Days Qty: 42 0RF Hold Instructions: Resume on 01/15/23. until sunday furosemide 20 mg tablet 20 mg PO DAILY Qty: 90 3RF Hold Instructions: Resume on 01/15/23. Discharge Orders: Discharge Order (Routine); Ordered 01/12/23 Ordered By: Millicent Lei Admission Data Admit Date/Time: 01/10/23 22:52 Attending Provider: David Swift Admit Provider: Abril Hermosillo Primary Care Provider: Tristian Marquez Other Providers: Radha Romero ; Josemanuel Porter Other Interventions: Discharge Summary Assessment (RN) Last Done: 01/12/23 12:07 Supervising Physician Co-Signing Physician Notes The patient was seen by me. The right great toe is much better. Rapid improvement in her symptoms favors gout rather than an infectious process. She will be discharged on colchicine and a tapering dose of prednisone. Case discussed with RUSTY Alas. Agree with assessment and plan Coding Level of Care Code 65194 INP/OBS DISCH >30 MIN Diagnoses Toe pain, right M79.674 Chronic kidney disease, stage 3 (moderate) N18.3 Hypertension I10 Dyslipidemia E78.5 Hypothyroidism E03.9 GERD (gastroesophageal reflux disease) K21.9 Depression F32.9 Anxiety F41.9 Mild cognitive impairment G31.84 Hypomagnesemia E83.42
[2023-01-12] MEDS ORDERED: predniSONE 20 MG TAB PO SCH (13:00)
[2023-01-12] MEDS ORDERED: predniSONE 10 MG TABLET PO SCH (14:00)
== END 2023-01-12 16:15 | disposition home or self-care (01) | DRG 554 ==
LOC: ED 17:01 → SUATTDRO 22:52 → 3W 22:52
DX: I12.9 Hypertensive chronic kidney disease with stage 1 through stage 4 chronic kidney disease, or unspecified chronic kidney disease; H91.90 Unspecified hearing loss, unspecified ear; N18.30 Chronic kidney disease, stage 3 unspecified; E87.6 Hypokalemia; E03.9 Hypothyroidism, unspecified; Z88.8 Allergy status to other drugs, medicaments and biological substances; F03.A0 Unspecified dementia, mild, without behavioral disturbance, psychotic disturbance, mood disturbance, and anxiety; F41.8 Other specified anxiety disorders; Z88.5 Allergy status to narcotic agent; N17.9 Acute kidney failure, unspecified; L03.031 Cellulitis of right toe; E83.42 Hypomagnesemia; Z79.890 Hormone replacement therapy; M10.9 Gout, unspecified; T50.1X5A Adverse effect of loop [high-ceiling] diuretics, initial encounter

== ENCOUNTER 2024-03-02 12:32 | Inpatient (IN) ==
[2024-03-02] MEDS: TXA 10% Non-IV Routes 100 MG/ML VIAL ONE (12:55)
[2024-03-02] MEDS: LIDOCAINE 1% LOCAL 20 ML VIAL INFIL ONE (13:00)
[2024-03-02] MEDS: OXYMETAZOLINE 0.05% 30 ML BTL ONE ×2 (13:00→13:29)
[2024-03-02] MEDS: ACETAMINOPHEN 1000 MG/100 ML IV IV ONE (13:28)
[2024-03-02] MEDS: ONDANSETRON INJ 2 MG/ML 2 ML VIAL ONE (13:29)
--- NOTE | 2024-03-02 13:55 | CT Scan Report ---
CT OF THE HEAD WITHOUT CONTRAST CLINICAL HISTORY: Trauma COMPARISON STUDY: Head CT December 20, 2022. TECHNIQUE: Helical axial images of the head were obtained without IV contrast. Automated exposure con trol was utilized for the study. A dose lowering technique was utilized adhering to the principles o f ALARA. FINDINGS: No acute intracranial hemorrhage, midline shift or mass effect is present. The ventricular system is unremarkable. The basal cisterns are patent. No extra-axial collections are present. There are no findings to suggest acute dural sinus thrombosis or acute territorial infarct. There are no ca lvarial fractures. The globes are intact. Right facial contusion is present. There is hemorrhage with in the maxillary and sphenoid sinuses. Secretions within the nasal cavity are present. Numerous acute bilateral facial fractures are better depicted on the facial bone CT. IMPRESSION: 1. No acute intracranial findings. 2. No calvarial fractures. 3. Extensive acute bilateral facial fractures with associated hemorrhage within the sinuses. Findings better depicted on the facial bone CT which will be reported separately. ACT 112: Negative or not required by law. Electronically signed by: Lio Cao M.D. 03/02/2024 1:53 PM
--- NOTE | 2024-03-02 14:01 | CT Scan Report ---
MAXILLOFACIAL CT WITHOUT CONTRAST CLINICAL HISTORY: Trauma COMPARISON STUDY: Facial bone CT June 10, 2022. TECHNIQUE: A maxillofacial CT was performed without IV contrast. Coronal and sagittal reformats were viewed. Automated exposure control was utilized for the study. A dose lowering technique was utiliz ed adhering to the principles of ALARA. FINDINGS: Right facial contusions are present. The globes are intact. There is no large retrobulbar h ematoma. A small amount of hemorrhage within the inferior right orbit is present. The bilateral maxil niya sinuses are filled with hemorrhage. There is hemorrhage and secretions within the nasopharynx an d nasal cavity. Numerous acute displaced bilateral facial fractures are present. There are fractures of the bilateral medial and lateral pterygoid plates. Note is made of acute fractures of the anterior and lateral ch of the bilateral maxillary sinuses as well as the right orbital floor and the late ral wall of the right orbit. Zygomatic arches are intact. Acute significant displaced and comminuted bilateral nasal bone fractures are noted as well as comminuted displaced fractures of the nasal septu m. Alignment of the temporomandibular joints is anatomic. There are no mandibular fractures. Cervical spine CT will be reported separately. IMPRESSION: 1. Extensive acute displaced bilateral facial fractures, as described above, with involvement of the pterygoid plates. The findings suggest a LeFort type II pattern. Fractures involve the ch of the m axillary sinuses, nasal septum, nasal bones, right orbital floor and lateral wall of the right orbit. 2. Right facial contusions. Globes intact. Small amount of hemorrhage within the inferior right orbit . No large retrobulbar hematoma. 3. Hemorrhage within the sinuses and nasal cavity, as described above. ACT 112: Negative or not required by law. Electronically signed by: Lio Cao M.D. 03/02/2024 1:58 PM
--- NOTE | 2024-03-02 14:02 | CT Scan Report ---
CT OF THE CERVICAL SPINE WITHOUT CONTRAST CLINICAL HISTORY: Trauma COMPARISON STUDY: Cervical spine CT December 20, 2022. TECHNIQUE: Helical axial images of the cervical spine were obtained without IV contrast. Sagittal a nd coronal reconstructions were viewed. Automated exposure control was utilized for the study. A do se lowering technique was utilized adhering to the principles of ALARA. FINDINGS: Alignment of the cervical spine is anatomic. Vertebral body heights are maintained. No acut e cervical spine fracture or subluxation is present. There is no prevertebral edema. Facet joints are intact. Secretions and hemorrhage within the nasopharynx are better depicted on the facial bone CT which will be reported separately. The findings are related to numerous acute bilateral facial bone f ractures. IMPRESSION: No acute cervical spine fracture or subluxation. ACT 112: Negative or not required by law. Electronically signed by: Lio Cao M.D. 03/02/2024 2:00 PM
--- NOTE | 2024-03-02 14:02 | Emergency Department Note ---
Impression & Plan LeFort II fracture, Fall, Fractured nasal bones, CHI (closed head injury), Anticoagulated, Fracture of maxillary sinus, Epistaxis due to trauma ED Provider Note NAME: JUNG DEAL AGE: 89 SEX: Female INFORMANT: Patient and family ED PROVIDER(S): Moris Patterson MD CHIEF COMPLAINT: Fall PLAN: Disposition: Admitted Outpatient prescription management: None Referral: MEDICAL DECISION MAKING: Patient was evaluated. Primary and secondary surveys were performed. Patient had significant facial trauma. Airway, breathing and circulation was stable except for some difficulty breathing through her nose secondary to clotting blood. Significant anterior epistaxis was present. Patient was anticoagulated and had last dose of Xarelto last night. ECG showed a normal sinus rhythm. Patient had moderate hypertension on examination. No other significant findings were noted on secondary survey. Patient was awake and alert. Epistaxis control was necessary due to the amount of bleeding. This was performed as below. Patient did require atomized TXA, lidocaine, and a 4.5 cm anterior nasal balloon as direct pressure and oxymetazoline did not control the hemorrhage. Patient was given IV Zofran and IV Tylenol to mitigate any nausea and for pain. The patient's packing did slip out and I did replace this uneventfully. She was taken emergently to CT imaging. Patient was noted to have multiple sinus and nasal bone fractures. I did discuss the patient's findings with Dr. Siegel of oral maxillofacial surgery. He asked for the packing to be left in place. He will evaluate the patient. We did discuss an empiric dose of antibiotics. Rocephin was chosen and he was in agreement. The patient was given a dose of IV Rocephin. On reassessment she was doing better. She does not do well with narcotics and is comfortable holding off on any additional analgesia at this time. Patient will need to be admitted to the hospital for the fall and for OMFS evaluation. Prior to moving upstairs the patient's packing was accidentally removed by the patient. No significant additional hemorrhaging or bleeding noted. No additional repacking was done as the bleeding was controlled. Consultation was made with Dr. Jorge Arauz of the [facility] service. Patient was evaluated in the ER for further management. Care/management discussed with: client program manager Level of care consideration(s): After review of the information above and other included data, I feel the patient requires escalation of care to admission. Triage Nursing notes: reviewed and agree them. Vital Signs: reviewed and remarkable for hypertension Additional History obtained from: Patient's son. He noted that she was somewhat dizzy prior to going to the bathroom but was able to ambulate okay. Chronic Medical/Social Conditions affecting care: Dementia Prior/ Outside/ External records reviewed: none Differential Diagnosis: Fracture, dislocation, contusion, intra-abdominal, pneumothorax, intrathoracic, intracranial, neurologic, compartment syndrome, rhabdomyolysis, as well as other pathologies. Diagnostics, independently interpreted by me: EC Lead ECG performed and revealed Normal sinus rhythm at 60, normal [place], QRS normal. No elevation or depression. No PACs or PVCs Cardiac Monitoring: Cardiac monitoring ordered by me: The patient was placed on continuous cardiac monitoring and observed. It revealed a normal sinus rhythm at 68 beats per minute without ectopy or evidence of dysrhythmia. Medical decision rules: none Imaging studies: CT imaging of the head and cervical spine are negative for acute intracranial injury or cervical spine injury. There is a CT imaging of the facial bones that show significant facial bone fractures consistent with LeFort II and nasal bone fractures present. HPI: 89 year old Female arrives for evaluation of a fall. This started just prior to arrival. Patient was getting up to go to the bathroom and noted to the son she was feeling slightly dizzy but was able to ambulate. When she got to the bathroom she became more lightheaded and fell forward striking her face on the tile. She had significant pain in the face, swelling and hemorrhage from her nose. The patient also notes the following associated symptoms, facial pain, headache, difficulty breathing through her nose. The patient has taken no medication for relieving factors. Current pain is rated as 10/10. Pt denies LOC, fevers, chills, diaphoresis, visual changes, neck pain, chest pain, nausea, vomiting, abdominal pain, back pain, urinary symptoms, numbness, lymphadenopathy, rash, or other complaints. PAST MEDICAL HISTORY: See Below, dementia PAST SURGICAL HISTORY: See Below, SOCIAL HISTORY: See Below, HOME MEDICATIONS: See Below ALLERGIES: See Below VITALS: See Below PHYSICAL EXAMINATION: GENERAL: Awake, alert, uncomfortable appearing, no acute distress HEAD: Normocephalic, facial contusion and ecchymosis noted. Patient has bruising and swelling over the right face. Deformity of the nose noted. Small subcentimeter laceration on the right side of the nose just medial to the eye. No spain sign. No true raccoon eyes but there is right periorbital ecchymosis. EYES: Normal conjunctiva. PERRL. EARS: External ears normal. NOSE: Deformity present. Mild right-sided epistaxis present. Significant left- sided hemorrhage present. Large clots present. No septal hematomas identified. OROPHARYNX: Lips, tongue, and mucosa unremarkable. No erythema or exudate. NECK: Supple. No nuchal rigidity. FROM. No tracheal deviation or JVD. No posterior midline tenderness. No step offs noted. RESPIRATORY: CTA bilaterally CARDIAC: Regular rate, normal rhythm. ABDOMEN: Inspection reveals no abnormalities. Soft, non distended. No tenderness to palpation. No hernias. BACK: No midline step offs or tenderness to palpation. Unremarkable. PELVIS: Stable to rock. SKIN: Normal. LYMPH: No adenopathy. MUSCULOSKELETAL: Upper and lower extremities are atraumatic except for old appearing bruises on the lower legs and the son states this is from a fall a week ago. NEURO: GCS 15. Normal sensorium. No sensory or motor deficits noted. PROCEDURES: Anterior Nasal Packing: Indication: Traumatic anterior epistaxis. Verbal consent obtained. Risks and benefits discussed. Clots were removed. The naris was prepped with Afrin, TXA and lidocaine. A 4.5-cm nasal balloon was placed in a standard fashion very gently and directing it inferiorly and towards the midline to avoid entry into any potential sinus fracture or cribriform plate problem. The patient tolerated this well. Bleeding was controlled. No complications. CRITICAL CARE: I have personally spent 35 minutes of critical care time in the direct management of this patient. This includes bedside care, interpretation of diagnostic studies, and testing, discussion with consultants, patient, and family members, and other required patient management activities. These minutes are in excess of all separately billable procedures. OBSERVATION NOTE: none Past Med/Surg History Problem List (Updated 03/02/24 @ 19:40 by Moris Patterson MD) LeFort II fracture (Acute) Epistaxis due to trauma (Acute) Fracture of maxillary sinus (Acute) Anticoagulated (Acute) CHI (closed head injury) (Acute) Fractured nasal bones (Acute) Fall (Acute) Fatigue COVID-19 (~06/27/23) Atrial tachycardia Atrial flutter Recent urinary tract infection Nocturia Urinary hesitancy Hypomagnesemia Dementia Nasal bone fractures Hearing loss (~06/28/23) History of SCC (squamous cell carcinoma) of skin Lumbar disc herniation Myofascial pain Depression Vitamin D deficiency Paroxysmal SVT (supraventricular tachycardia) Osteopenia Mild sleep apnea Leiomyoma of uterus GERD (gastroesophageal reflux disease) Dyslipidemia Degenerative disc disease Uterine prolapse Lumbar radiculopathy (Chronic) Hypothyroidism Anxiety Chronic kidney disease, stage 3 (moderate) Chronic osteoarthritis Complete uterovaginal prolapse HAS PESSARY Hypertension Lumbar spinal stenosis (Chronic) Mild cognitive impairment Medical History COVID-19 (~06/27/23) Atrial tachycardia Atrial flutter Lumbar disc herniation Myofascial pain Depression Hyperlipidemia Endometritis Lumbar radiculopathy Hx of gastroesophageal reflux (GERD) Presence of pessary Insomnia Hypothyroidism Anxiety Chronic kidney disease, stage 3 (moderate) Chronic osteoarthritis Complete uterovaginal prolapse Dyslipidemia Hypertension Lumbar spinal stenosis Mild cognitive impairment Paroxysmal SVT (supraventricular tachycardia) Surgical History Status post hysteroscopy (01/19/20) History of tooth extraction History of total right knee replacement History of bunionectomy of both great toes Hx of bilateral cataract extraction H/O dilation and curettage (01/19/20) Family History Mother , age 74 Congenital absence of one kidney Coronary heart disease Heart disease Kidney disease Father , age 83 Dementia Denies family history of Ovarian cancer Prostate cancer Myocardial infarction Breast cancer Lung cancer Colorectal cancer Social History Smoking Status: Never smoker Second Hand Exposure: No; Hx Alcohol Use: Yes Alcohol type: wine Alcohol Intake Frequency: Monthly or Less Hx Substance Use: No Preferred Language: Zambian Communication Ability: Effective Visual Impairment: Limited Hearing Ability: Use of Hearing Aid Shipping Receiving Clerk Required: No Beliefs That Will Affect Care: None marital status: Current Living Situation: Spouse and Family Current Living Situation Comment: lives with , son checks in regularly current occupational status: retired current occupation: substitutes for school nurse Feels Safe at Home: Yes Safety Concerns: Feels Safe At This Time Childhood Exposure to Second-Hand Smoke: No Diet: regular Diet Comment: regular caffeine: Yes (Coffee x 2 per day.) during the past year weight has: remained stable Dental Care, Regularly: Yes Physical Activity Frequency: 1-2 Times per Week Seatbelt Use: always Sunscreen Use: Yes Assistive Devices: Cane Allergies Allergies Allergy/AdvReac Type Severity Reaction Status Date / Time amlodipine Allergy Intermediate Edema Verified 03/02/24 15:11 donepezil AdvReac Intermediate increased Verified 03/02/24 15:11 memory loss escitalopram AdvReac Intermediate Dizziness Verified 03/02/24 15:11 losartan AdvReac Intermediate Back pain Verified 03/02/24 15:11 -leg pain-muscle weakness-cough metoprolol AdvReac Intermediate Fatigue, Verified 03/02/24 15:11 cognitive difficulty oxycodone AdvReac Intermediate Shaking/Vom Verified 03/02/24 15:11 iting propoxyphene [From Darvon] AdvReac Intermediate Shaking/Vom Verified 03/02/24 15:11 iting sertraline [From Zoloft] AdvReac Intermediate Insomnia,ne Verified 03/02/24 15:11 rvousness Home Meds Home Medications Medication Instructions Recorded Confirmed acetaminophen 650 mg 650 mg PO Q12H PRN Pain 01/15/20 03/02/24 tablet,extended release cetirizine 10 mg capsule (Zyrtec) 10 mg PO DAILY PRN Congestion 06/12/23 03/02/24 cholecalciferol (vitamin D3) 10 10 mcg PO DAILY 06/12/23 03/02/24 mcg (400 unit) capsule cranberry 500 mg capsule 500 mg PO DAILY 03/02/24 03/02/24 Previous Rx's Medication Instructions Recorded potassium chloride 20 mEq 20 meq PO BID 3 weeks #42 tabs 12/26/22 tablet,extended release(part/cryst) atorvastatin 10 mg tablet 10 mg PO QAM #90 tabs 06/18/23 furosemide 20 mg tablet 20 mg PO DAILY #90 tabs 06/28/23 duloxetine 30 mg capsule,delayed 30 mg PO DAILY #90 caps 08/01/23 release allopurinol 100 mg tablet 100 mg PO DAILY #90 tabs 10/22/23 rivaroxaban 15 mg tablet (Xarelto) 15 mg PO DAILY #30 tabs 11/05/23 cefdinir 300 mg capsule 300 mg PO BID 7 days #14 caps 11/29/23 levothyroxine 75 mcg tablet 75 mcg PO DAILY #90 tabs 12/24/23 carvedilol 6.25 mg tablet 6.25 mg PO BID #180 tabs 01/28/24 Results & Data (ED) Vital Signs Vital Signs - 24 hr 03/02/24 12:45 03/02/24 12:46 03/02/24 12:46 Temperature 36.7 C Temperature Source Oral Pulse Rate 60 62 Pulse Rate from SpO2 Sensor Pulse Rhythm Regular Pulse Strength Normal Respiratory Rate 20 Respiratory Effort / Characteristics Non-Labored Spontaneous Respiratory Depth Normal Respiratory Pattern Regular Blood Pressure 208/83 H Blood Pressure Mean 124 Pulse Oximetry 94 Oxygen Delivery Method Room Air Room Air Sepsis Recent Fever Within 48 Hours No Sepsis New/Unexplained Change in Mental Status No Sepsis Action Taken by Nursing No Action Required 03/02/24 14:18 03/02/24 15:07 Temperature Temperature Source Pulse Rate 66 Pulse Rate from SpO2 Sensor 66 Pulse Rhythm Pulse Strength Respiratory Rate 20 Respiratory Effort / Characteristics Respiratory Depth Respiratory Pattern Blood Pressure 162/92 H Blood Pressure Mean 109 Pulse Oximetry 95 100 Oxygen Delivery Method Room Air Sepsis Recent Fever Within 48 Hours Sepsis New/Unexplained Change in Mental Status Sepsis Action Taken by Nursing Laboratory Data 03/02/24 17:41 03/02/24 14:03 Lab Results 03/02/24 Range/Units 14:03 WBC 8.87 (4.8-10.8) K/ul RBC 3.54 L (4.20-5.40) M/uL Hgb 10.9 L (12.0-16.0) g/dl Hct 33.1 L (37.0-47.0) % MCV 93.5 (80.0-100.0) fL MCH 30.8 (25.0-34.0) pg MCHC 32.9 (32.0-36.0) g/dL RDW Std Deviation 46.0 (36.4-46.3) fL RDW Coeff of Lillie 13.6 (11.5-14.5) % Plt Count 253 (130-400) K/uL MPV 10.5 (9.4-12.4) fL Immature Gran % (Auto) 0.2 % Neut % (Auto) 78.6 % Lymph % (Auto) 13.5 % Cataño % (Auto) 6.3 % Eos % (Auto) 0.9 % Baso % (Auto) 0.5 % Neut # (Auto) 6.97 H (1.40-6.50) K/uL Lymph # (Auto) 1.20 (1.20-3.40) K/uL Cataño # (Auto) 0.56 (0.11-0.59) K/uL Eos # (Auto) 0.08 (0.00-0.50) K/uL Baso # (Auto) 0.04 (0.00-0.20) K/uL Immature Gran # (Auto) 0.02 (0.01-0.20) K/uL Sodium 135 L (136-145) mmol/L Potassium 3.9 (3.5-5.1) mmol/L Chloride 105 (98-107) mmol/L Carbon Dioxide 23 (21-32) mmol/L Anion Gap 7 (3-11) BUN 20 (6-23) mg/dl Creatinine 1.38 H (0.6-1.2) mg/dl Est Cr Clr Drug Dosing 27.3 ml/min Est GFR ( Amer) 39.5 ml/min Est GFR (Non-Af Amer) 34.1 ml/min BUN/Creatinine Ratio 14.5 (10-20) Glucose 144 H (70-99(Fasting)) mg/dl Calcium 9.7 (8.6-10.3) mg/dl Total Bilirubin 0.6 (0.2-1.0) mg/dl AST 19 (13-39) U/L ALT 10 (7-52) U/L Alkaline Phosphatase 104 (34-104) U/L Troponin I High Sens 7.4 (0-14) pg/ml Total Protein 6.3 (6.0-8.3) gm/dl Albumin 3.7 (3.4-5.0) gm/dl Globulin 2.6 (2.5-4.0) gm/dl Albumin/Globulin Ratio 1.4 (0.9-2) Administered Medications Discontinued Medications Acetaminophen (Acetaminophen 1000 Mg/100 Ml Iv) Confirm Administered Dose 1,000 mg IV .STCombined Effort-MED ONE Stop: 03/02/24 13:20 Last Admin: 03/02/24 13:28 Dose: 1,000 mg Documented By: MATHIEU Ceftriaxone Sodium (Rocephin) 2,000 mg in 50 mls @ 100 mls/hr IV NOW STA Stop: 03/02/24 14:38 Last Infusion: 03/02/24 15:52 Dose: Infused Documented By: Admin: 03/02/24 15:08 Dose: 100 mls/hr Documented By: STAN Lidocaine HCl (Lidocaine 1% Local 20 Ml Vial) 5 ml INFIL NOW ONE Stop: 03/02/24 12:53 Last Admin: 03/02/24 13:00 Dose: 5 ml Documented By: MATHIEU Ondansetron HCl (Ondansetron Inj 2 Mg/Ml 2 Ml Vial) Confirm Administered Dose 4 mg .ROUTE .ST-MED ONE Stop: 03/02/24 13:20 Last Admin: 03/02/24 13:29 Dose: 4 mg Documented By: MATHIEU Oxymetazoline HCl (Oxymetazoline 0.05% 30 Ml Btl) Confirm Administered Dose 150 sprays .ROUTE .ST-MED ONE Stop: 03/02/24 12:49 Last Admin: 03/02/24 13:29 Dose: Not Given Documented By: MATHIEU Oxymetazoline HCl (Oxymetazoline 0.05% 30 Ml Btl) 1 sprays NA NOW Stop: 03/02/24 12:53 Last Admin: 03/02/24 13:00 Dose: 1 sprays Documented By: MATHIEU Tranexamic Acid (Txa 10% Non-Iv Routes 100 Mg/Ml Vial) 500 mg NA ONE ONE Stop: 03/02/24 12:52 Last Admin: 03/02/24 12:55 Dose: 500 mg Documented By: MATHIEU Imaging Data Radiologist's Impression: Cervical Spine CT 03/02/24 12:52 CT OF THE CERVICAL SPINE WITHOUT CONTRAST CLINICAL HISTORY: Trauma COMPARISON STUDY: Cervical spine CT December 20, 2022. TECHNIQUE: Helical axial images of the cervical spine were obtained without IV contrast. Sagittal and coronal reconstructions were viewed. Automated exposure control was utilized for the study. A dose lowering technique was utilized adhering to the principles of ALARA. FINDINGS: Alignment of the cervical spine is anatomic. Vertebral body heights are maintained. No acute cervical spine fracture or subluxation is present. There is no prevertebral edema. Facet joints are intact. Secretions and hemorrhage within the nasopharynx are better depicted on the facial bone CT which will be reported separately. The findings are related to numerous acute bilateral facial bone fractures. IMPRESSION: No acute cervical spine fracture or subluxation. ACT 112: Negative or not required by law. Electronically signed by: Lio Cao M.D. 03/02/2024 2:[address] 03/02/24 12:[address] WITHOUT CONTRAST CLINICAL HISTORY: Trauma COMPARISON STUDY: Facial bone CT June 10, 2022. TECHNIQUE: A maxillofacial CT was performed without IV contrast. Coronal and sagittal reformats were viewed. Automated exposure control was utilized for the study. A dose lowering technique was utilized adhering to the principles of ALARA. FINDINGS: Right facial contusions are present. The globes are intact. There is no large retrobulbar hematoma. A small amount of hemorrhage within the inferior right orbit is present. The bilateral maxillary sinuses are filled with hemorrhage. There is hemorrhage and secretions within the nasopharynx and nasal cavity. Numerous acute displaced bilateral facial fractures are present. There are fractures of the bilateral medial and lateral pterygoid plates. Note is made of acute fractures of the anterior and lateral ch of the bilateral maxillary sinuses as well as the right orbital floor and the lateral wall of the right orbit. Zygomatic arches are intact. Acute significant displaced and comminuted bilateral nasal bone fractures are noted as well as comminuted displaced fractures of the nasal septum. Alignment of the temporomandibular joints is anatomic. There are no mandibular fractures. Cervical spine CT will be reported separately. IMPRESSION: 1. Extensive acute displaced bilateral facial fractures, as described above, with involvement of the pterygoid plates. The findings suggest a LeFort type II pattern. Fractures involve the ch of the maxillary sinuses, nasal septum, nasal bones, right orbital floor and lateral wall of the right orbit. 2. Right facial contusions. Globes intact. Small amount of hemorrhage within the inferior right orbit. No large retrobulbar hematoma. 3. Hemorrhage within the sinuses and nasal cavity, as described above. ACT 112: Negative or not required by law. Electronically signed by: Lio Cao M.D. 03/02/2024 1:[address] 03/02/24 12:52 CT OF THE HEAD WITHOUT CONTRAST CLINICAL HISTORY: Trauma COMPARISON STUDY: Head CT December 20, 2022. TECHNIQUE: Helical axial images of the head were obtained without IV contrast. Automated exposure control was utilized for the study. A dose lowering technique was utilized adhering to the principles of ALARA. FINDINGS: No acute intracranial hemorrhage, midline shift or mass effect is present. The ventricular system is unremarkable. The basal cisterns are patent. No extra-axial collections are present. There are no findings to suggest acute dural sinus thrombosis or acute territorial infarct. There are no calvarial fractures. The globes are intact. Right facial contusion is present. There is hemorrhage within the maxillary and sphenoid sinuses. Secretions within the nasal cavity are present. Numerous acute bilateral facial fractures are better depicted on the facial bone CT. IMPRESSION: 1. No acute intracranial findings. 2. No calvarial fractures. 3. Extensive acute bilateral facial fractures with associated hemorrhage within the sinuses. Findings better depicted on the facial bone CT which will be reported separately. ACT 112: Negative or not required by law. Electronically signed by: Lio Cao M.D. 03/02/2024 1:53 PM Discharge Plan Visit Data Chief Complaint: Trauma Stated Complaint: FALL, NOSE BLEED, HEMATOMA R EYE & CHEEK ED Provider: Moris Patterson Discharge Problem: LeFort II fracture, Fall, Fractured nasal bones, CHI (closed head injury), Anticoagulated, Fracture of maxillary sinus, Epistaxis due to trauma Patient Disposition: Admitted As Inpatient Discharge Instructions Interventions: ED Discharge Assessment Last Done: 03/02/24 16:45
[2024-03-02 14:23] LABS: Basophils # (auto) 0.04 K/uL (0.00-0.20); Basophils % (auto) 0.5 %; Eosinophils # (auto) 0.08 K/uL (0.00-0.50); Eosinophils % (auto) 0.9 %; Hematocrit (blood only) 33.1 % (37.0-47.0); Hemoglobin 10.9 g/dl (12.0-16.0); Immature Granulocytes # (auto) 0.02 K/uL (0.01-0.20); Immature Granulocytes % (auto) 0.2 %; Lymphocytes % (auto) 13.5 %; Mean Corpuscular Hemoglobin 30.8 pg (25.0-34.0); Mean Corpuscular Hgb Conc 32.9 g/dL (32.0-36.0); Mean Corpuscular Volume 93.5 fL (80.0-100.0); Mean Platelet Volume 10.5 fL (9.4-12.4); Monocytes # (auto) 0.56 K/uL (0.11-0.59); Monocytes % (auto) 6.3 %; Neutrophils # (auto) 6.97 K/uL (1.40-6.50); Neutrophils % (auto) 78.6 %; Platelet Count 253 K/uL (130-400); RDW Coefficient of Variation 13.6 % (11.5-14.5); Red Blood Count 3.54 M/uL (4.20-5.40); White Blood Count 8.87 K/ul (4.8-10.8)
--- NOTE | 2024-03-02 14:23 | Oral/Maxillofacial Consult ---
Date of Consultation March 02, 2024 Assessment & Plan (1) LeFort II fracture: (2) Fall: (3) Nasal bone fractures: History of Present Illness History of Present Illness I was called by the ER regarding Mrs. Culp. I reviewed the CT and noted the extensive facial fractures representing a classic Naso-maxillary LeFort II fracture type fracture. The plan is to admit to medicine, hold Xarelto and other anticoagulation therapy. I will be seeing Mrs. Culp later this afternoon once she is admitted to the floor so I can complete my clinical examination. At that time I will develop a treatment plan based on the clinical finding and discussion with the family. I would suggest IV antibiotics, Ice to the midface, keep the nasal packing in place, Hold anticoagulants. Keep head of bed elevated. May have clear liquids as tolerated. Please call Dr Siegel if any questions Summary of ER notes and control of nasal bleeding secondary to LeFort II fracture 89 year old Female arrives for evaluation of a fall. This started just prior to arrival. Patient was getting up to go to the bathroom and noted to the son she was feeling slightly dizzy but was able to ambulate. When she got to the bathroom she became more lightheaded and fell forward striking her face on the tile. She had significant pain in the face, swelling and hemorrhage from her nose. She is on Xarelto The patient also notes the following associated symptoms, facial pain, headache, difficulty breathing through her nose. The patient has taken no medication for relieving factors. Current pain is rated as 10/10. Pt denies LOC, fevers, ch ills, diaphoresis, visual changes, neck pain, chest pain, nausea, vomiting, abdominal pain, back pain, urinary symptoms, numbness, lymphadenopathy, rash, or other complaints. Patient had significant facial trauma. Airway, breathing and circulation was stable except for some difficulty breathing through her nose secondary to clotting blood. Significant anterior epistaxis was present. Patient was anticoagulated and had last dose of Xarelto last night. ECG showed a normal sinus rhythm. Patient had moderate hypertension on examination. No other significant findings were noted on secondary survey. Patient was awake and alert. Epistaxis control was necessary due to the amount of bleeding. This was performed as below. Patient did require atomized TXA, lidocaine, and a 4.5 cm anterior nasal balloon as direct pressure and oxymetazoline did not control the hemorrhage. Patient was given IV Zofran and IV Tylenol to mitigate any nausea and for pain. She was taken emergently to CT imaging. Patient was noted to have multiple sinus and nasal bone fractures. MAXILLOFACIAL CT WITHOUT CONTRAST CLINICAL HISTORY: Trauma FINDINGS: Right facial contusions are present. The globes are intact. There is no large retrobulbar hematoma. A small amount of hemorrhage within the inferior right orbit is present. The bilateral maxillary sinuses are filled with hemorrhage. There is hemorrhage and secretions within the nasopharynx and nasal cavity. Numerous acute displaced bilateral facial fractures are present. There are fractures of the bilateral medial and lateral pterygoid plates. Note is made of acute fractures of the anterior and lateral ch of the bilateral maxillary sinuses as well as the right orbital floor and the lateral wall of the right orbit. Zygomatic arches are intact. Acute significant displaced and comminuted bilateral nasal bone fractures are noted as well as comminuted displaced fractures of the nasal septum. Alignment of the temporomandibular joints is anatomic. There are no mandibular fractures. Cervical spine CT will be reported separately. IMPRESSION: 1. Extensive acute displaced bilateral facial fractures, as described above, with involvement of the pterygoid plates. The findings suggest a LeFort type II pattern. Fractures involve the ch of the maxillary sinuses, nasal septum, nasal bones, right orbital floor and lateral wall of the right orbit. 2. Right facial contusions. Globes intact. Small amount of hemorrhage within the inferior right orbit. No large retrobulbar hematoma. 3. Hemorrhage within the sinuses and nasal cavity, as described above. I saw Mrs. Culp on March 02 at 7 pm There is no doubt that she has a LeFort II nasomaxillary fracture. The maxilla is displaced to the left and pushed back, the nasal bones right side are depressed to the septum with separation at the naso-frontal suture line. The occlusion is way off with a non functional bite, TMJ function is good. The maxilla is mobile. No eye issues other than ecchymoses, good ROM, No double vision no entrapment . Nasal congestion as expected. Plan I will plan on taking Mrs. Culp to the OR once I am able to secure OR time for an open reduction of the Maxillary fracture with internal plating, there may also be a need for max/bella fixation to help limit jaw movement for a few weeks depending on the stability after the direct fixation is place. I reviewed the surgery with Mrs Culp and her son. Head/Neck exam: Neck is supple, FROM, Able to extend and flex neck w/o difficulty, no masses, no abnormalities, no airway issues, no evidence of sleep apnea. Treatment Plan: Plan open reduction of nasomaxillary ( Lefort II ) fracture with direct plate fixation Set up with general anesthesia in hospital due to complexity of the procedure I reviewed the treatment plan and consent with the patient and her son. Understanding was expressed. Time was given for questions regarding the surgery, risks and post op care. Discussed alternative to treatment--procedure as planned, Do not do surgery--this is not an option secondary to a non functional occlusion and uns table maxilla Plan for --open reduction of the Maxillary fracture with internal plating, there may also be a need for max/bella fixation to help limit jaw movement for a few weeks depending on the stability after the direct fixation is place. Risks discussed: Bleeding,Pain,swelling,infection, delayed healing, nerve injury to face,lips, tongue,chin area which could be permanent (rare). TMJ, jaw stiffness, change in bite, ear pain (referred). Sinus problems like fistula or infection. Malunion, plate and sinus infection, bleeding. Need for jaw fixation Surgery to be set up once medically cleared Case discussed with medical team aim for surgery Sept 4 Open reduction LeFort fracture Allergies Allergy/AdvReac Type Severity Reaction Status Date / Time amlodipine Allergy Intermediate Edema Verified 03/02/24 15:11 donepezil AdvReac Intermediate increased Verified 03/02/24 15:11 memory loss escitalopram AdvReac Intermediate Dizziness Verified 03/02/24 15:11 losartan AdvReac Intermediate Back pain Verified 03/02/24 15:11 -leg pain-muscle weakness-cough metoprolol AdvReac Intermediate Fatigue, Verified 03/02/24 15:11 cognitive difficulty oxycodone AdvReac Intermediate Shaking/Vom Verified 03/02/24 15:11 iting propoxyphene [From Darvon] AdvReac Intermediate Shaking/Vom Verified 03/02/24 15:11 iting sertraline [From Zoloft] AdvReac Intermediate Insomnia,ne Verified 03/02/24 15:11 rvousness Home Medications Medication Instructions Recorded Confirmed Type acetaminophen 650 mg 650 mg PO Q12H PRN Pain 01/15/20 03/02/24 History tablet,extended release potassium chloride 20 mEq 20 meq PO BID 3 weeks #42 tabs 12/26/22 03/02/24 Rx tablet,extended release(part/cryst) cetirizine 10 mg capsule (Zyrtec) 10 mg PO DAILY PRN Congestion 06/12/23 03/02/24 History cholecalciferol (vitamin D3) 10 10 mcg PO DAILY 06/12/23 03/02/24 History mcg (400 unit) capsule atorvastatin 10 mg tablet 10 mg PO QAM #90 tabs 06/18/23 03/02/24 Rx furosemide 20 mg tablet 20 mg PO DAILY #90 tabs 06/28/23 03/02/24 Rx duloxetine 30 mg capsule,delayed 30 mg PO DAILY #90 caps 08/01/23 03/02/24 Rx release allopurinol 100 mg tablet 100 mg PO DAILY #90 tabs 10/22/23 03/02/24 Rx rivaroxaban 15 mg tablet (Xarelto) 15 mg PO DAILY #30 tabs 11/05/23 03/02/24 Rx cefdinir 300 mg capsule 300 mg PO BID 7 days #14 caps 11/29/23 03/02/24 Rx levothyroxine 75 mcg tablet 75 mcg PO DAILY #90 tabs 12/24/23 03/02/24 Rx carvedilol 6.25 mg tablet 6.25 mg PO BID #180 tabs 01/28/24 03/02/24 Rx cranberry 500 mg capsule 500 mg PO DAILY 03/02/24 03/02/24 History Patient History Medical History COVID-19 (~06/27/23) Atrial tachycardia Atrial flutter Lumbar disc herniation Myofascial pain Depression Hyperlipidemia Endometritis Lumbar radiculopathy Hx of gastroesophageal reflux (GERD) Presence of pessary Insomnia Hypothyroidism Anxiety Chronic kidney disease, stage 3 (moderate) Chronic osteoarthritis Complete uterovaginal prolapse Dyslipidemia Hypertension Lumbar spinal stenosis Mild cognitive impairment Paroxysmal SVT (supraventricular tachycardia) Surgical History Status post hysteroscopy (01/19/20) History of tooth extraction History of total right knee replacement History of bunionectomy of both great toes Hx of bilateral cataract extraction H/O dilation and curettage (01/19/20) Family History Mother , age 74 Congenital absence of one kidney Coronary heart disease Heart disease Kidney disease Father , age 83 Dementia Denies family history of Ovarian cancer Prostate cancer Myocardial infarction Breast cancer Lung cancer Colorectal cancer Social History Smoking Status: Never smoker Second Hand Exposure: No; Hx Alcohol Use: Yes Alcohol type: wine Alcohol Intake Frequency: Monthly or Less Hx Substance Use: No Preferred Language: Polish Communication Ability: Effective Visual Impairment: Limited Hearing Ability: Use of Hearing Aid Gold Miner Required: No Beliefs That Will Affect Care: None marital status: Current Living Situation: Spouse and Family Current Living Situation Comment: lives with , son checks in regularly current occupational status: retired current occupation: substitutes for school nurse Feels Safe at Home: Yes Safety Concerns: Feels Safe At This Time Childhood Exposure to Second-Hand Smoke: No Diet: regular Diet Comment: regular caffeine: Yes (Coffee x 2 per day.) during the past year weight has: remained stable Dental Care, Regularly: Yes Physical Activity Frequency: 1-2 Times per Week Seatbelt Use: always Sunscreen Use: Yes Assistive Devices: Cane Results & Data Vital Signs (Past 12 Hours) Vital Signs Temp Pulse Resp BP Pulse Ox O2 Del Method 03/02/24 14:18 95 Room Air 03/02/24 12:46 Room Air 03/02/24 12:46 36.7 C 62 20 208/83 H 94 Room Air 03/02/24 12:45 60 PG Care Time/CCT Total # of Minutes Spent Total Time Spent with Patient: Total time spent is greater than 50% in coordination of care (as documented) at patient's floor/unit and/or counseling patient: Coding Level of Care Code 51717 IN/OBS CONSULT LVL 5,80M History Detailed Exam Detailed Medical Decision Making Moderate Complexity Diagnoses Closed Le Fort II fracture, initial encounter S02.412A Encounter type: initial encounter Fracture type: closed Fall, initial encounter W19.XXXA Encounter type: initial encounter Open fracture of nasal bone, initial encounter S02.2XXB Encounter type: initial encounter Fracture type: open CPT Codes OPN [place] NASOMAX COMP FX MULTPLE OPEN APPROACHES/LEFORT II - [id number] ([id number]) (1) LeFort II fracture Encounter type: initial encounter Fracture type: closed Qualified Code(s): S02.412A - LeFort II fracture, initial encounter for closed fracture (2) Fall Encounter type: initial encounter Qualified Code(s): W19.XXXA - Unspecified fall, initial encounter (3) Nasal bone fractures Encounter type: initial encounter Fracture type: open Qualified Code(s): S02.2XXB - Fracture of nasal bones, initial encounter for open fracture
--- NOTE | 2024-03-02 14:34 | Electrocardiogram Report ---
Test Reason : Blood Pressure : */* mmHG Vent. Rate : 60 BPM Atrial Rate : 60 BPM P-R Int : 162 ms QRS Dur : 80 ms QT Int : 438 ms P-R-T Axes : 40 -13 49 degrees QTcB Int : 438 ms Normal sinus rhythm Normal ECG When compared with ECG of 20-Dec-2022 15:24, No significant change was found Confirmed by Robbin Reyes ([id number]) on 03/02/2024 2:34:25 PM Referred By: REFERRED SELF Confirmed By: Robbin eRyes
--- NOTE | 2024-03-02 14:37 | History & Physical Report ---
Date of Service March 02, 2024 Assessment & Plan (1) Fracture of maxillary sinus: Plan: Unwitnessed fall in the bathroom where patient struck face the morning of 03/[address] revealed extensive acute displaced bilateral facial fracture (LeFort type II pattern); right facial contusions; globes intact Cervical spine CT without acute findings Head CT without acute intracranial findings Patient received tranexamic acid 10% 500mg in the ED Lidocaine, Afrin spray, anterior nasal packing Rocephin x 1 given in the ED Elevate HOB Ice application to affected area Continue Unasyn 3000 mg IV q6h for empiric antibiotic coverage IV acetaminophen as needed for pain/fever Oromaxillary facial surgery consult appreciated Clear liquid diet as tolerated A.m. CBC, BMP (2) Epistaxis due to trauma: Plan: Hgb 10.9 on arrival Hold Xarelto Trend H&H q4h for now (3) Fall: Plan: Unclear what caused her to fall UA ordered, pending PT/OT evaluations appreciated Fall precautions (4) Atrial flutter: Plan: NSR on arrival; rate controlled Continue carvedilol If patient needs to be made n.p.o., will transition to metoprolol 2.5 mg IV q6h Hold Xarelto (above) (5) CHI (closed head injury): (6) Hypertension: (7) Fatigue: (8) Chronic kidney disease, stage 3 (moderate): Plan Disposition: Admit to PCU telemetry Full code Clear liquid diet VTE PPx: SCDs (hold Xarelto in the setting of acute head trauma) History of Present Illness Chief Complaint: Trauma, fall Primary Care Provider: TOR Sanchez Elliott is an 89-year-old female with PMH of HTN, CKD stage III, hypothyroidism, anxiety, dyslipidemia, GERD, paroxysmal SVTs, dementia, atrial flutter (on Xa relto), and lumbar radiculopathy. She presented via EMS on 03/02 after an unwitnessed fall at home. Patient was ambulating to the bathroom to get ready to go to the hospital to visit her (who recently was admitted for a hip fracture). She does not remember falling, but does report she was feeling dizzy, lightheaded, and weak this morning. She ambulates with a cane at baseline. She denies passing out, but does not remember how she fell exactly. It is believed she struck her face on her shower chair. Son was present at home and heard a "thud". Patient is currently on Xarelto; last took it last night on 03/01. She reports she took her regular morning medicine today; no recent change in medication; she reports she manages her own medicine at home. She denies any facial pain at present, but does feel like she needs to blow her nose, and like she has facial "pressure". She does not use supplemental oxygen at baseline or CPAP at night. She denies smoking, tobacco use, recent alcohol use. Patient is hypertensive at 208/83 at time of admission; vitals otherwise stable. ED course: Acetaminophen 1000 mg IV TXA 10% 500 mg Afrin 0.05% spray Lidocaine 4.5 cm anterior nasal balloon Zofran 4 mg IV ROS: Patient endorses sensation of face fullness, blurry vision, dizziness/lightheadedness, confusion, mild SOB at rest, hemoptysis, and increased weakness in the legs. Patient denies fever, chills, night-sweats, difficulty swallowing, neck pain, chest pain, chest palpitations, pleuritic CP, abdominal pain, N/V/D, changes in urinary/bowel habits, burning with urination, or numbness/tingling in the arms or legs. Spoke with patient's son (Tarik) at bedside and provided update regarding admission status. Patient's son confirms that the patient's CODE STATUS is DNR/DNI, and that there is paperwork to this effect (POLST form). Patient's son also reports that it was an unwitnessed fall. The patient got up and stumbled getting to the bathroom, but this was not new for her. She has stumbled and had difficulty with ambulation in the past. 1 son found her in the bathroom after hearing her go down, there was no witnessed syncope, seizure activity, or strokelike symptoms before or after the event. He believes that she fell forward and struck her face on the shower chair. Allergies Allergy/AdvReac Type Severity Reaction Status Date / Time amlodipine Allergy Intermediate Edema Verified 03/02/24 15:11 donepezil AdvReac Intermediate increased Verified 03/02/24 15:11 memory loss escitalopram AdvReac Intermediate Dizziness Verified 03/02/24 15:11 losartan AdvReac Intermediate Back pain Verified 03/02/24 15:11 -leg pain-muscle weakness-cough metoprolol AdvReac Intermediate Fatigue, Verified 03/02/24 15:11 cognitive difficulty oxycodone AdvReac Intermediate Shaking/Vom Verified 03/02/24 15:11 iting propoxyphene [From Darvon] AdvReac Intermediate Shaking/Vom Verified 03/02/24 15:11 iting sertraline [From Zoloft] AdvReac Intermediate Insomnia,ne Verified 03/02/24 15:11 rvousness Home Medications Medication Instructions Recorded Confirmed Type acetaminophen 650 mg 650 mg PO Q12H PRN Pain 01/15/20 03/02/24 History tablet,extended release potassium chloride 20 mEq 20 meq PO BID 3 weeks #42 tabs 12/26/22 03/02/24 Rx tablet,extended release(part/cryst) cetirizine 10 mg capsule (Zyrtec) 10 mg PO DAILY PRN Congestion 06/12/23 03/02/24 History cholecalciferol (vitamin D3) 10 10 mcg PO DAILY 06/12/23 03/02/24 History mcg (400 unit) capsule atorvastatin 10 mg tablet 10 mg PO QAM #90 tabs 06/18/23 03/02/24 Rx furosemide 20 mg tablet 20 mg PO DAILY #90 tabs 06/28/23 03/02/24 Rx duloxetine 30 mg capsule,delayed 30 mg PO DAILY #90 caps 08/01/23 03/02/24 Rx release allopurinol 100 mg tablet 100 mg PO DAILY #90 tabs 10/22/23 03/02/24 Rx rivaroxaban 15 mg tablet (Xarelto) 15 mg PO DAILY #30 tabs 11/05/23 03/02/24 Rx cefdinir 300 mg capsule 300 mg PO BID 7 days #14 caps 11/29/23 03/02/24 Rx levothyroxine 75 mcg tablet 75 mcg PO DAILY #90 tabs 12/24/23 03/02/24 Rx carvedilol 6.25 mg tablet 6.25 mg PO BID #180 tabs 01/28/24 03/02/24 Rx cranberry 500 mg capsule 500 mg PO DAILY 03/02/24 03/02/24 History Past Med/Surg History Problem List (Updated 03/02/24 @ 14:02 by Moris Patterson MD) Epistaxis due to trauma (Acute) Fracture of maxillary sinus (Acute) Anticoagulated (Acute) CHI (closed head injury) (Acute) Fractured nasal bones (Acute) Fall (Acute) Fatigue COVID-19 (~06/27/23) Atrial tachycardia Atrial flutter Recent urinary tract infection Nocturia Urinary hesitancy Hypomagnesemia Dementia Nasal bone fractures Hearing loss (~06/28/23) History of SCC (squamous cell carcinoma) of skin Lumbar disc herniation Myofascial pain Depression Vitamin D deficiency Paroxysmal SVT (supraventricular tachycardia) Osteopenia Mild sleep apnea Leiomyoma of uterus GERD (gastroesophageal reflux disease) Dyslipidemia Degenerative disc disease Uterine prolapse Lumbar radiculopathy (Chronic) Hypothyroidism Anxiety Chronic kidney disease, stage 3 (moderate) Chronic osteoarthritis Complete uterovaginal prolapse HAS PESSARY Hypertension Lumbar spinal stenosis (Chronic) Mild cognitive impairment Medical History COVID-19 (~06/27/23) Atrial tachycardia Atrial flutter Lumbar disc herniation Myofascial pain Depression Hyperlipidemia Endometritis Lumbar radiculopathy Hx of gastroesophageal reflux (GERD) Presence of pessary Insomnia Hypothyroidism Anxiety Chronic kidney disease, stage 3 (moderate) Chronic osteoarthritis Complete uterovaginal prolapse Dyslipidemia Hypertension Lumbar spinal stenosis Mild cognitive impairment Paroxysmal SVT (supraventricular tachycardia) Surgical History Status post hysteroscopy (01/19/20) History of tooth extraction History of total right knee replacement History of bunionectomy of both great toes Hx of bilateral cataract extraction H/O dilation and curettage (01/19/20) Family History Mother , age 74 Congenital absence of one kidney Coronary heart disease Heart disease Kidney disease Father , age 83 Dementia Denies family history of Ovarian cancer Prostate cancer Myocardial infarction Breast cancer Lung cancer Colorectal cancer Social History Smoking Status: Never smoker Second Hand Exposure: No; Do You Dip or Chew Tobacco: No; Hx Alcohol Use: No Hx Substance Use: No Preferred Language: Belarusian Communication Ability: Effective Visual Impairment: Limited Hearing Ability: Use of Hearing Aid Layboy Tender Required: No Beliefs That Will Affect Care: None marital status: Current Living Situation: Spouse and Family Current Living Situation Comment: lives with , son checks in regularly current occupational status: retired current occupation: substitutes for school nurse Feels Safe at Home: Yes Childhood Exposure to Second-Hand Smoke: No Diet: regular Diet Comment: regular caffeine: Yes (Coffee x 2 per day.) during the past year weight has: remained stable Dental Care, Regularly: Yes Physical Activity Frequency: 1-2 Times per Week Seatbelt Use: always Sunscreen Use: Yes Assistive Devices: Cane Review of Systems Review of Systems: See HPI above Physical Exam Physical Exam: General: no acute distress; pleasant affect; non-toxic appearing; frail appearing; cooperative; SpO2 100% on RA HEENT: Purple bruising, edema, and ecchymosis periorbitally around both eyes (worse on the right side); 1 cm lesion noted on the bridge of the nose; sclerae erythematous; trickle blood noted in the right nasal pathway, left nasal passageway is occluded/not patent (balloon in place); PERRLA with EOMs intact Neck: supple; no lymphadenopathy; trachea midline; patient demonstrates ability to shrug shoulders against resistance and rotate neck bilaterally without pain/deficits; airway patent Skin: warm, dry without signs of tenting; no cyanosis; no rashes, bruising, lesions, or erythema noted CV: chest wall NTP; RRR; S1/S2 normal; no murmurs/rubs/gallops; pulses intact and symmetric at radial, DP, and PT Lungs: no acute respiratory distress; symmetrical chest wall expansion; clear breath sounds across all lung reyes w/o adventitious sounds; no wheezing ABD: Soft, NTP; BS present; no rebound/guarding; no distention MSK: no tics or fasciculations; no edema noted in the LEs b/l, nonerythematous Neuro: A&O to name//location/purpose in the hospital; not oriented to the month; normal mood and affect; fluent speech; no focal deficits; sensation grossly intact and symmetric in lower extremities bilaterally Results & Data Results & Data Vital Signs (Past 12 Hours) Vital Signs Temp Pulse Resp BP Pulse Ox O2 Del Method 03/02/24 14:18 95 Room Air 03/02/24 12:46 Room Air 03/02/24 12:46 36.7 C 62 20 208/83 H 94 Room Air 03/02/24 12:45 60 Laboratory Results Abnormal lab results 03/02/24 Range/Units 14:03 RBC 3.54 L (4.20-5.40) M/uL Hgb 10.9 L (12.0-16.0) g/dl Hct 33.1 L (37.0-47.0) % Neut # (Auto) 6.97 H (1.40-6.50) K/uL Diagnostic Findings Cervical Spine CT 03/02/24 12:52 CT OF THE CERVICAL SPINE WITHOUT CONTRAST CLINICAL HISTORY: Trauma COMPARISON STUDY: Cervical spine CT December 20, 2022. TECHNIQUE: Helical axial images of the cervical spine were obtained without IV contrast. Sagittal and coronal reconstructions were viewed. Automated exposure control was utilized for the study. A dose lowering technique was utilized adhering to the principles of ALARA. FINDINGS: Alignment of the cervical spine is anatomic. Vertebral body heights are maintained. No acute cervical spine fracture or subluxation is present. There is no prevertebral edema. Facet joints are intact. Secretions and hemorrhage within the nasopharynx are better depicted on the facial bone CT which will be reported separately. The findings are related to numerous acute b ilateral facial bone fractures. IMPRESSION: No acute cervical spine fracture or subluxation. ACT 112: Negative or not required by law. Electronically signed by: Lio Cao M.D. 03/02/2024 2:[address] 03/02/24 12:[address] WITHOUT CONTRAST CLINICAL HISTORY: Trauma COMPARISON STUDY: Facial bone CT June 10, 2022. TECHNIQUE: A maxillofacial CT was performed without IV contrast. Coronal and sagittal reformats were viewed. Automated exposure control was utilized for the study. A dose lowering technique was utilized adhering to the principles of ALARA. FINDINGS: Right facial contusions are present. The globes are intact. There is no large retrobulbar hematoma. A small amount of hemorrhage within the inferior right orbit is present. The bilateral maxillary sinuses are filled with hemorrhage. There is hemorrhage and secretions within the nasopharynx and nasal cavity. Numerous acute displaced bilateral facial fractures are present. There are fractures of the bilateral medial and lateral pterygoid plates. Note is made of acute fractures of the anterior and lateral ch of the bilateral maxillary sinuses as well as the right orbital floor and the lateral wall of the right orbit. Zygomatic arches are intact. Acute significant displaced and comminuted bilateral nasal bone fractures are noted as well as comminuted displaced fractures of the nasal septum. Alignment of the temporomandibular joints is anatomic. There are no mandibular fractures. Cervical spine CT will be reported separately. IMPRESSION: 1. Extensive acute displaced bilateral facial fractures, as described above, with involvement of the pterygoid plates. The findings suggest a LeFort type II pattern. Fractures involve the ch of the maxillary sinuses, nasal septum, nasal bones, right orbital floor and lateral wall of the right orbit. 2. Right facial contusions. Globes intact. Small amount of hemorrhage within the inferior right orbit. No large retrobulbar hematoma. 3. Hemorrhage within the sinuses and nasal cavity, as described above. ACT 112: Negative or not required by law. Electronically signed by: Lio Cao M.D. 03/02/2024 1:[address] 03/02/24 12:52 CT OF THE HEAD WITHOUT CONTRAST CLINICAL HISTORY: Trauma COMPARISON STUDY: Head CT December 20, 2022. TECHNIQUE: Helical axial images of the head were obtained without IV contrast. Automated exposure control was utilized for the study. A dose lowering technique was utilized adhering to the principles of ALARA. FINDINGS: No acute intracranial hemorrhage, midline shift or mass effect is present. The ventricular system is unremarkable. The basal cisterns are patent. No extra-axial collections are present. There are no findings to suggest acute dural sinus thrombosis or acute territorial infarct. There are no calvarial fractures. The globes are intact. Right facial contusion is present. There is hemorrhage within the maxillary and sphenoid sinuses. Secretions within the nasal cavity are present. Numerous acute bilateral facial fractures are better depicted on the facial bone CT. IMPRESSION: 1. No acute intracranial findings. 2. No calvarial fractures. 3. Extensive acute bilateral facial fractures with associated hemorrhage within the sinuses. Findings better depicted on the facial bone CT which will be reported separately. ACT 112: Negative or not required by law. Electronically signed by: Lio Cao M.D. 03/02/2024 1:53 PM ECG Additional Comments: ECG revealed NSR at 60 bpm; QTc 438 Code Status & VTE Plan Code Status Full code VTE Prophylaxis Plan VTE Prophylaxis will be ordered: Yes Supervising Physician Co-Signing Physician Notes Patient seen and examined, chart reviewed, case discussed with Enio Dubose PA-C and I agree with the assessment and plan as above except as otherwise noted Labs and images reviewed 89-year-old female history of a flutter on anticoagulation, CKD 3, anxiety, dementia, longer radiculopathy whose is in the hospital currently who was getting ready to visit her when she felt dizzy/lightheaded after standing and fell forward striking her face on a chair. No fever, chills, sweats, chest pain, chest pressure, dyspnea preceding or after event. Was seen in the ER for epistaxis. Blood pressure. Facial CT showed extensive acute displaced bilateral facial fractures as noted above. OMFS was consulted, okay for admission and will see in surgical consultation. In ER nare was suctioned, no stasis was achieved by soaking a Rhino Rocket and TXA and applying per protocol. Minimal slow ooze thereafter. Hemoglobin trended. No tachycardia or hypotension. Hypertensive in the setting of pain. Prophylactics with Rocephin given in the ER, will transition to Unasyn 03/03. Patient is okay for clear liquid diet per OMFS. If made n.p.o. in anticipation of surgery will transition beta-veto to metoprolol IV every 6 hours at that time. No signs of intracranial bleed on CT. Will primarily treat for pain control as suspect hyp ertensive in the setting of discomfort with facial fractures and GI bleed, cautious use of antihypertensives due to risk of precipitated hypotension. At time of attending assessment patient has accidentally pulled out her Rhino Rocket however does continue to have hemostasis, has trace spotting onto a tissue but no overt bleeding. Discussed with ER, will watch in the ER for 1 hour prior to transfer to the floor. If no bleeding then we will move to the floor, if has recurrent bleeding then will have Rhino Rocket with TXA replaced. PG Care Time/CCT Total # of Minutes Spent Total Time Spent with Patient: Total time spent is greater than 50% in coordination of care (as documented) at patient's floor/unit and/or counseling patient: C[place] [address] INT INP/OBS CARE 3/75MIN Patient Type Established Medical Decision Making High Complexity Diagnoses Fracture of maxillary sinus S02.401A Epistaxis due to trauma R04.0 Fall W19.XXXA Atrial flutter I48.92 CHI (closed head injury) S09.90XA Hypertension I10 Fatigue R53.83 Chronic kidney disease, stage 3 (moderate) N18.3
[2024-03-02 14:40] LABS: Albumin Globulin Ratio 1.4 (0.9-2); Albumin Level 3.7 gm/dl (3.4-5.0); BUN Creatinine Ratio 14.5 (10-20); Bilirubin,Total 0.6 mg/dl (0.2-1.0); Calcium 9.7 mg/dl (8.6-10.3); Creatinine Clr Calc Pharmacy 27.3 ml/min; Est GFR (African American) 39.5 ml/min; Est GFR (Non-African American) 34.1 ml/min; Globulin 2.6 gm/dl (2.5-4.0); Potassium 3.9 mmol/L (3.5-5.1); Total Protein 6.3 gm/dl (6.0-8.3)
[2024-03-02 14:46] LABS: Troponin I High Sensitivity 7.4 pg/ml (0-14)
[2024-03-02] MEDS: cefTRIAXone SODIUM 2,000 MG/50 ML BAG IV STA (15:08)
[2024-03-02] MEDS ORDERED: ACETAMINOPHEN 1,000 MG/100 ML VIAL IV PRN (17:58)
[2024-03-02 18:06] LABS: Hematocrit (blood only) 31.6 % (37.0-47.0); Hemoglobin 10.4 g/dl (12.0-16.0)
[2024-03-02] MEDS: carvediloL 6.25 MG TAB PO SCH (19:36)
[2024-03-02] MEDS: AMPICILLIN/SULBACTAM SOD 3,000 MG/100 ML BAG IV SCH (20:23)
[2024-03-02] MEDS: carvediloL 3.125 MG TAB PO ONE (20:24)
[2024-03-02] MEDS: MELATONIN 3 MG TAB PO PRN (20:25)
[2024-03-02 21:09] LABS: Appearance Urine Turbid (Clear); Bacteria Urine Automated 4+ (None Seen); Bilirubin Urine Negative (Negative); Blood Urine 2+ (Negative); Color Urine Yellow; Epithelial Cell Urine Auto >20 /hpf (0-2); Glucose Urine UA Negative (Negative); Ketones Urine Negative (Negative); Leukocyte Esterase Urine 1+ (Negative); Nitrite Urine Negative (Negative); Protein Urine Negative (Negative); RBC Urine Automated >20 /hpf (0-2); Specific Gravity Urine 1.017 (1.000-1.030); Urobilinogen Urine Negative (Negative)
[2024-03-02 22:30] LABS: Hematocrit (blood only) 31.9 % (37.0-47.0); Hemoglobin 10.5 g/dl (12.0-16.0)
[2024-03-03] MEDS: carvediloL 3.125 MG TAB PO ONE (03:30)
[2024-03-03] MEDS: LEVOTHYROXINE SODIUM 75 MCG TABLET PO SCH (03:31)
[2024-03-03 06:42] LABS: Basophils # (auto) 0.03 K/uL (0.00-0.20); Basophils % (auto) 0.4 %; Eosinophils # (auto) 0.04 K/uL (0.00-0.50); Eosinophils % (auto) 0.5 %; Hematocrit (blood only) 27.5 % (37.0-47.0); Hemoglobin 9.5 g/dl (12.0-16.0); Immature Granulocytes # (auto) 0.02 K/uL (0.01-0.20); Immature Granulocytes % (auto) 0.2 %; Lymphocytes # (auto) 2.16 K/uL (1.20-3.40); Lymphocytes % (auto) 26.1 %; Mean Corpuscular Hemoglobin 30.9 pg (25.0-34.0); Mean Corpuscular Hgb Conc 34.5 g/dL (32.0-36.0); Mean Corpuscular Volume 89.6 fL (80.0-100.0); Mean Platelet Volume 10.8 fL (9.4-12.4); Monocytes # (auto) 0.86 K/uL (0.11-0.59); Monocytes % (auto) 10.4 %; Neutrophils # (auto) 5.17 K/uL (1.40-6.50); Neutrophils % (auto) 62.4 %; Platelet Count 244 K/uL (130-400); RDW Coefficient of Variation 13.2 % (11.5-14.5); Red Blood Count 3.07 M/uL (4.20-5.40); White Blood Count 8.28 K/ul (4.8-10.8)
[2024-03-03 07:02] LABS: BUN Creatinine Ratio 22.7 (10-20); Calcium 9.5 mg/dl (8.6-10.3); Creatinine Clr Calc Pharmacy 28.5 ml/min; Est GFR (African American) 43.2 ml/min; Est GFR (Non-African American) 37.3 ml/min; Potassium 3.8 mmol/L (3.5-5.1)
--- NOTE | 2024-03-03 07:55 | Hospitalist Progress Note ---
Date of Service March 03, 2024 Assessment & Plan (1) Fracture of maxillary sinus: Plan: Unwitnessed fall in the bathroom where patient struck face the morning of 03/[address] revealed extensive acute displaced bilateral facial fracture (LeFort type II pattern); right facial contusions; globes intact Cervical spine CT without acute findings Head CT without acute intracranial findings Patient received tranexamic acid 10% 500mg in the ED Lidocaine, Afrin spray, anterior nasal packing Rocephin x 1 given in the ED Plan: - Continue Unasyn 3000 mg IV q6h for empiric antibiotic coverage IV acetaminophen as needed for pain/fever Elevate HOB Ice application to affected area as needed - Oromaxillary facial surgery scheduled with Dr. Siegel for Sunday03/05/24 morning Clear liquid diet as tolerated A.m. CBC, BMP - reach out to PCP Dr. Marquez to let him know about pt's status/condition and Xarelto status Present on Admission?: Yes (2) Epistaxis due to trauma: Plan: Hgb 10.9 on arrival Hold Xarelto at least until 24hrs post-surgery, procedure scheduled for Sun03/05/24 AM Trend H&H q4h for now Patient instructed not to put anything up nose or blow nose due to bleeding risk. Present on Admission?: Yes (3) Fall: Plan: Person, pt got up to use bathroom after breakfast on 03/02, stated she felt dizzy, took a few more steps and hit her face on edge of chair in bathroom UA ordered, pending PT/OT evaluations appreciated Fall precautions - ordered Echocardiogram for structural heart disease due to increased frequency of bouts of "dizziness" per son's history as a possible contributor for fall resulting in present facial fracture (4) Atrial flutter: Plan: NSR on arrival; rate controlled Continue carvedilol If patient needs to be made n.p.o., will transition to metoprolol 2.5 mg IV q6h Hold Xarelto (above) - continue monitoring on Telemetry (5) CHI (closed head injury): Plan: CT head and neck on 03/02/24 unremarkable for intracranial pathology See above assessment and plan for maxillary sinus fracture (6) Hypertension: Plan: continue to monitor - consider home dose carvedilol 6.25mg BID (7) Fatigue: Plan: decreased hemoglobin, 10.5 to 9.5 from 03/03 to 03/02, likely secondary to blood loss - ordered Echocardiogram for possible structural heart disease as a contributor to increasing frequency of "dizziness" per son (8) Chronic kidney disease, stage 3 (moderate): Plan: as of 03/03/24, Creatinine is 1.28 with BUN 29 - continue to monitor kidney function and electrolytes with daily CMP - continue clear liquid feeds and hydration as tolerated Plan Disposition: Admit to PCU telemetry Full code Clear liquid diet VTE PPx: SCDs (hold Xarelto in the setting of acute head trauma) Admission and Anticipated Discharge Date Admission Date: March 02, 2024 Supervising Physician Co-Signing Physician Notes ATTESTATION I also saw the patient and confirmed hernandez portions of the history and exam. I agree with the impression and plan in the resident documentation, and as summarized below. I also discussed the case with the educational consultant. Plan is for surgery on Sunday. Upon our exam around noon, the patient was seated at the bed's edge; her son was at bedside. EXAM 169/76, 70, 20, 36.3, 90% room air Facial ecchymosis Speech with nasally sound secondary to trauma Neck is supple Heart regular Respirations are nonlabored DATA Labs Hemoglobin 9.5, platelet count 244 Sodium 137, potassium 3.8, BUN 29, creatinine 1.[address] scan from 03/02/2024 shows extensive acute bilateral facial fractures, suggestive of a LeFort type II pattern. Fractures involve the ch of the maxillary sinus, nasal septum, nasal bones, right orbital floor and lateral wall of the right orbit. CT scan of the cervical spine on 03/02/2024 shows no acute cervical spine fracture or subluxation. Micro Urine culture collected 03/02/2024 shows pinpoint growth. IMPRESSION & PLAN Facial fractures Appreciate surgery consultation Surgical repair tentatively scheduled for 03/25 Continue Unasyn History of atrial flutter History of AVNRT Anticoagulation on hold given fall and upcoming surgery Will reassess risk/benefits of systemic anticoagulation with patient and son following surgery; there is some thought that they may not want to resume Continue Coreg 6.25 mg twice daily Check resting echocardiogram and CXR as part of preoperative evaluation Additional per resident documentation Bobbi Carpio) was seen and examined at bedside this morning and afternoon, her son was present at the latter visit. Patient is in good spirits, talkative, repeats herself at times but is alert and oriented to person, place, and situation. Face shows extensive ecchymosis below eyes, down cheeks, and down to level of her neck. Endorses pain below her R eye but denies any other significant pain. Also notes nasal congestion, likely due to fracture of bones around nasal passages and associated bleeding/swelling. No current nose bleed, but has some tissues with spots of blood. Patient tolerating PO soft foods/fluids. Per telemetry, patient has been in sinus rhythm with HR in 70s-80s overnight and this morning. Son reports that he was home with pt when the incident occurred. States that she got up to go to the bathroom after breakfast, paused for a few seconds saying she was dizzy, took a few more steps and then son heard a bang. When he looked to see, he found pt down on bathroom floor with facial bleeding and blood on edge of toilet seat from facial impact. Neither he or patient endorse that pt lost consciousness, but son believes that the dizziness has been occurring more frequently and notes it is usually when pt does not take her Xarelto (for paroxysmal AFlutter/Afib). Son states he lays out pt's daily medications for her but she does not always end up taking them as prescribed. Patient notes blurry vision, due to not having her glasses with her since they broke from the fall, but still able to see clock on wall and tell the correct time. Patient and son deny that pt had any recent fever, body aches, chills, headache, significant bleeds, loss of consciousness, numbness, tingling, or weakness. Patient and son on board with facial surgery with Dr. Siegel on Monday 03/05 morning. Will reach out to pt's PCP (Dr. Marquez) to inform him of pt's status/condition. Review of Systems Review of Systems: All systems reviewed & are unremarkable except as noted in HPI & below Physical Exam Constitutional: WD/WN, vitals as above well developed and well nourished Eyes: PERRL, conjunctivae normal, anicteric sclerae EOM intact bilaterally R sclera mildly injected, L sclera white ENMT: Nose: + epistaxis, + facial exam abnormality, + maxillary instability, + facial crepitus and + facial tenderness scattered ecchymoses around entire face, primarily inferior to R eye, inferior to L eye, b/l cheeks extending down to anterior neck Neck: loose neck skin, ecchymosis Respiratory: normal respiratory effort, lungs clear to auscultation Cardiovascular: RRR, no murmur, no edema Musculoskeletal: no cyanosis or clubbing, extremities motor strength 5/5 Skin: no rashes, warm and dry Psychiatric: A+Ox3, euthymic affect Apperance: appropriately groomed Eye Contact: good eye contact Results & Data Results & Data Vital Signs (Past 12 Hours) Vital Signs Temp Pulse Resp BP BP Pulse Ox O2 Del Method 03/03/24 07:38 36.3 C L 83 19 197/82 H 97 Room Air 03/03/24 03:12 36.8 C 75 15 196/84 H 94 Room Air 03/02/24 23:41 36.6 C 74 15 173/81 H 96 Room Air 03/02/24 20:21 36.8 C 73 17 168/86 H 98 Room Air Laboratory Results Abnormal lab results 03/02/24 03/02/24 03/02/24 Range/Units 14:03 17:41 20:30 RBC (4.20-5.40) M/uL Hgb 10.4 L (12.0-16.0) g/dl Hct 31.6 L (37.0-47.0) % Vance # (Auto) (0.11-0.59) K/uL Sodium 135 L (136-145) mmol/L BUN (6-23) mg/dl Creatinine 1.38 H (0.6-1.2) mg/dl BUN/Creatinine Ratio (10-20) Glucose 144 H (70-99(Fasting)) mg/dl Urine Appearance Turbid A (Clear) Urine Blood 2+ H (Negative) Ur Leukocyte Esterase 1+ H (Negative) Urine WBC (Auto) 11-20 H (0-5) /hpf Urine RBC (Auto) >20 H (0-2) /hpf U Hyaline Cast (Auto) 6-10 H (0-2) /lpf U Epithel Cells (Auto) >20 H (0-2) /hpf Urine Bacteria (Auto) 4+ H (None Seen) 03/02/24 03/03/24 Range/Units 22:19 06:15 RBC 3.07 L (4.20-5.40) M/uL Hgb 10.5 L 9.5 L (12.0-16.0) g/dl Hct 31.9 L 27.5 L (37.0-47.0) % Vance # (Auto) 0.86 H (0.11-0.59) K/uL Sodium (136-145) mmol/L BUN 29 H (6-23) mg/dl Creatinine 1.28 H (0.6-1.2) mg/dl BUN/Creatinine Ratio 22.7 H (10-20) Glucose 114 H (70-99(Fasting)) mg/dl Urine Appearance (Clear) Urine Blood (Negative) Ur Leukocyte Esterase (Negative) Urine WBC (Auto) (0-5) /hpf Urine RBC (Auto) (0-2) /hpf U Hyaline Cast (Auto) (0-2) /lpf U Epithel Cells (Auto) (0-2) /hpf Urine Bacteria (Auto) (None Seen) Diagnostic Findings 03/02/24: CT Face- IMPRESSION: 1. Extensive acute displaced bilateral facial fractures, as described above, with involvement of the pterygoid plates. The findings suggest a LeFort type II pattern. Fractures involve the ch of the maxillary sinuses, nasal septum, nasal bones, right orbital floor and lateral wall of the right orbit. 2. Right facial contusions. Globes intact. Small amount of hemorrhage within the inferior right orbit. No large retrobulbar hematoma. 3. Hemorrhage within the sinuses and nasal cavity, as described above. CT head and C-spine unremarkable for intracranial pathology or neck fracture, respectively. Resident Activity Tracking Resident Involvement: Resident Care Provided Care Provided: [facility] Medicine
[2024-03-03] MEDS: DULoxetine HCL 30 MG CAP PO SCH (08:33)
[2024-03-03] MEDS: allopurinoL 100 MG TAB PO SCH (08:34)
[2024-03-03] MEDS: ATORVASTATIN 10 MG TAB PO SCH (08:34)
--- NOTE | 2024-03-03 15:44 | XRay Report ---
XR chest 1V portable HISTORY: pre op COMPARISON: Chest 12/20/2022. FINDINGS: No pneumothorax. No pleural effusions. The heart is normal in size. No focal lung consolida tions to suggest a pneumonia. No evidence for pulmonary edema. No acute fractures. Large hiatus herni a again noted. IMPRESSION: No significant change compared to the prior study. No acute process. ACT 112: Negative or not required by law. Electronically signed by: Enio Petty M.D. 03/03/2024 3:43 PM
[2024-03-03] MEDS: PNEUMOCOCCAL VACCINE (PCV20) 20-VAL CONJ-DIP CRM/PF 0.5 ML SYR IM ONE (21:30)
[2024-03-04 05:24] LABS: Basophils # (auto) 0.05 K/uL (0.00-0.20); Basophils % (auto) 0.7 %; Eosinophils # (auto) 0.09 K/uL (0.00-0.50); Eosinophils % (auto) 1.3 %; Hemoglobin 9.1 g/dl (12.0-16.0); Immature Granulocytes # (auto) 0.02 K/uL (0.01-0.20); Immature Granulocytes % (auto) 0.3 %; Lymphocytes # (auto) 2.64 K/uL (1.20-3.40); Lymphocytes % (auto) 39.3 %; Mean Corpuscular Hgb Conc 33.7 g/dL (32.0-36.0); Mean Corpuscular Volume 91.8 fL (80.0-100.0); Monocytes # (auto) 0.78 K/uL (0.11-0.59); Monocytes % (auto) 11.6 %; Neutrophils # (auto) 3.13 K/uL (1.40-6.50); Neutrophils % (auto) 46.8 %; Platelet Count 229 K/uL (130-400); RDW Coefficient of Variation 13.4 % (11.5-14.5); RDW Standard Deviation 44.9 fL (36.4-46.3); Red Blood Count 2.94 M/uL (4.20-5.40); White Blood Count 6.71 K/ul (4.8-10.8)
[2024-03-04 05:37] LABS: BUN Creatinine Ratio 15.9 (10-20); Calcium 9.2 mg/dl (8.6-10.3); Est GFR (African American) 44.1 ml/min; Potassium 3.8 mmol/L (3.5-5.1)
--- NOTE | 2024-03-04 07:23 | Hospitalist Progress Note ---
Date of Service March 04, 2024 Assessment & Plan (1) Fracture of maxillary sinus: Plan: Unwitnessed fall in the bathroom where patient struck face the morning of 03/[address] revealed extensive acute displaced bilateral facial fracture (LeFort type II pattern); right facial contusions; globes intact Cervical spine CT without acute findings Head CT without acute intracranial findings Patient received tranexamic acid 10% 500mg in the ED Lidocaine, Afrin spray, anterior nasal packing Rocephin x 1 given in the ED Plan: - Continue Unasyn 3000 mg IV q6h for empiric antibiotic coverage IV acetaminophen as needed for pain/fever Elevate HOB Ice application to affected area as needed - Oromaxillary facial surgery scheduled with Dr. Siegel for Sunday03/05/24 early afternoon Clear liquid diet as tolerated, NPO starting midnight (00:00 03/05) A.m. CBC, BMP - reach out to PCP Dr. Marquez to let him know about pt's status/condition and Xarelto status Present on Admission?: Yes (2) Epistaxis due to trauma: Plan: Hgb 10.9 on arrival Hold Xarelto at least until 24hrs post-surgery, procedure scheduled for Sun03/05/24 AM Trend H&H q4h for now Patient instructed not to put anything up nose or blow nose due to bleeding risk. Present on Admission?: Yes (3) Fall: Plan: Person, pt got up to use bathroom after breakfast on 03/02, stated she felt dizzy, took a few more steps and hit her face on edge of chair in bathroom UA ordered, pending PT/OT evaluations appreciated Fall precautions - ordered Echocardiogram for structural heart disease due to increased frequency of bouts of "dizziness" per son's history as a possible contributor for fall resulting in present facial fracture - consider decreasing carvedilol dosage as patient was found to have orthostatic hypotension during PT which may be contributing to pt's dizziness and subsequent falls Present on Admission?: Yes (4) Atrial flutter: Plan: NSR on arrival; rate controlled Continue carvedilol If patient needs to be made n.p.o., will transition to metoprolol 2.5 mg IV q6h Hold Xarelto (above) - continue monitoring on Telemetry Present on Admission?: Yes (5) CHI (closed head injury): Plan: CT head and neck on 03/02/24 unremarkable for intracranial pathology See above assessment and plan for maxillary sinus fracture Present on Admission?: Yes (6) Hypertension: Plan: continue to monitor - home dose carvedilol 6.25mg BID, consider decreasing dosage due to finding of orthostatic hypotension during physical therapy Present on Admission?: Yes (7) Fatigue: Plan: decreased hemoglobin, 10.5 to 9.5 from 03/03 to 03/02, likely secondary to blood loss - ordered Echocardiogram for possible structural heart disease as a contributor to increasing frequency of "dizziness" per son - Present on Admission?: Yes (8) Chronic kidney disease, stage 3 (moderate): Plan: as of 03/03/24, Creatinine is 1.28 with BUN 29 - continue to monitor kidney function and electrolytes with daily CMP - continue clear liquid feeds and hydration as tolerated Present on Admission?: Yes Plan Disposition: Admit to PCU telemetry Full code Clear liquid diet VTE PPx: SCDs (hold Xarelto in the setting of acute head trauma) Admission and Anticipated Discharge Date Admission Date: March 02, 2024 Supervising Physician Co-Signing Physician Notes ATTESTATION I also saw the patient and confirmed hernandez portions of the history and exam. I agree with the impression and plan in the resident documentation, and as summarized below. Upon our exam patient is eating lunch with her , who is also hospitalized. Son is in the room as well. EXAM Facial ecchymosis Neck is supple Heart regular Respirations are nonlabored DATA Labs Hemoglobin 9.1, platelet count 229 Sodium 138, potassium 3.8, BUN 20, creatinine 1.[address] scan from 03/02/2024 shows extensive acute bilateral facial fractures, suggestive of a LeFort type II pattern. Fractures involve the ch of the maxillary sinus, nasal septum, nasal bones, right orbital floor and lateral wall of the right orbit. CT scan of the cervical spine on 03/02/2024 shows no acute cervical spine fracture or subluxation. Echocardiogram is pending. CXR normal. Micro Urine culture collected 03/02/2024 shows skin stan. IMPRESSION & PLAN Facial fractures Appreciate surgery consultation Surgical repair scheduled for tomorrow Continue Unasyn History of atrial flutter History of AVNRT Anticoagulation on hold given fall and upcoming surgery Will reassess risk/benefits of systemic anticoagulation with patient and son following surgery; there is some thought that they may not want to resume Continue Coreg 6.25 mg twice daily; although sounds as if she is getting some orthostatics, so may restart at 3.125 BID Additional per resident documentation Bobbi Carpio) was seen and examined at bedside this morning, eating breakfast and in good spirits, not appearing in acute distress. Continues to be talkative, repeats herself at times but is alert and oriented to person, place, and situation. Face still shows extensive ecchymosis below eyes, down cheeks, and down to level of her neck but less swelling noted compared to yesterday. Still endorses pain below her R eye but denies any other significant pain. Also notes nasal congestion is improving. No current nose bleed, but has some tissues with spots of blood. Patient tolerating PO soft foods/fluids. Per telemetry, patient was 70s-80s normal sinus rhythm overnight and this morning. Patient still notes blurry vision, due to not having her glasses with her since they broke from the fall. Patient and son deny that pt had any recent fever, body aches, chills, headache, significant bleeds, loss of consciousness, numbness, tingling, or weakness. Patient and son on board with facial surgery with Dr. Siegel tomorrow around midday. Will reach out to pt's PCP (Dr. Marquez) to inform him of pt's status/condition. Review of Systems Review of Systems: All systems reviewed & are unremarkable except as noted in HPI & below Physical Exam Constitutional: WD/WN, vitals as above well developed and well nourished Eyes: PERRL, conjunctivae normal, anicteric sclerae EOM intact bilaterally ENMT: Nose: + epistaxis, + facial exam abnormality, + maxillary instability, + facial crepitus and + facial tenderness ecchymosis surrounding and extending below R eye > L eye, across bridge of nose, down cheeks into neck no acute bleeding Respiratory: normal respiratory effort, lungs clear to auscultation Cardiovascular: RRR, no murmur, no edema Chest (Breasts): Breast: + abnormal palpation of breast Musculoskeletal: no cyanosis or clubbing, extremities motor strength 5/5 Skin: no rashes, warm and dry Psychiatric: A+Ox3, euthymic affect Apperance: appropriately groomed Eye Contact: good eye contact repeats herself at times, good eye contact with appropriate smile and laughter Results & Data Results & Data Vital Signs (Past 12 Hours) Vital Signs Temp Pulse Resp BP BP Pulse Ox O2 Del Method 03/04/24 03:05 36.9 C 83 18 155/77 H 96 Room Air 03/03/24 23:00 36.8 C 71 16 144/80 H 94 Room Air 03/03/24 19:51 Room Air 03/03/24 19:47 36.4 C L 62 19 155/84 H 96 Room Air Resident Activity Tracking Resident Involvement: Resident Care Provided Care Provided: Adult Hospital Medicine (3) Fall Encounter type: initial encounter Qualified Code(s): W19.XXXA - Unspecified fall, initial encounter
--- NOTE | 2024-03-04 19:04 | XCELERA ---
[id number] [id number]
[2024-03-05 06:22] LABS: Basophils # (auto) 0.03 K/uL (0.00-0.20); Basophils % (auto) 0.5 %; Eosinophils # (auto) 0.09 K/uL (0.00-0.50); Eosinophils % (auto) 1.5 %; Hematocrit (blood only) 26.7 % (37.0-47.0); Hemoglobin 8.8 g/dl (12.0-16.0); Immature Granulocytes # (auto) 0.02 K/uL (0.01-0.20); Immature Granulocytes % (auto) 0.3 %; Lymphocytes # (auto) 2.62 K/uL (1.20-3.40); Lymphocytes % (auto) 42.3 %; Mean Platelet Volume 10.9 fL (9.4-12.4); Monocytes # (auto) 0.64 K/uL (0.11-0.59); Monocytes % (auto) 10.3 %; Neutrophils # (auto) 2.79 K/uL (1.40-6.50); Neutrophils % (auto) 45.1 %; Platelet Count 224 K/uL (130-400); RDW Coefficient of Variation 13.7 % (11.5-14.5); RDW Standard Deviation 46.7 fL (36.4-46.3); Red Blood Count 2.84 M/uL (4.20-5.40); White Blood Count 6.19 K/ul (4.8-10.8)
[2024-03-05 06:34] LABS: BUN Creatinine Ratio 12.8 (10-20); Calcium 9.2 mg/dl (8.6-10.3); Creatinine Clr Calc Pharmacy 29.6 ml/min; Est GFR (African American) 44.5 ml/min; Est GFR (Non-African American) 38.4 ml/min; Potassium 3.8 mmol/L (3.5-5.1)
[2024-03-05] MEDS ORDERED: GLYCOPYRROLATE 0.2 MG/ML VIAL ONE (12:12)
[2024-03-05] MEDS ORDERED: fentaNYL citrate PF 100 MCG/2 ML VIAL ONE ×2 (12:12→13:53)
[2024-03-05] MEDS ORDERED: ONDANSETRON INJ 2 MG/ML 2 ML VIAL ONE (12:12)
[2024-03-05] MEDS ORDERED: ROCURONIUM BROMIDE 10 MG/ML 5 ML VIAL IV ONE (12:12)
[2024-03-05] MEDS ORDERED: LIDOCAINE 2% 2 ML VIAL/AMP(20MG/ML) INFIL ONE (12:12)
[2024-03-05] MEDS ORDERED: DEXAMETHASONE SOD INJ 4 MG/ML VIAL ONE (12:12)
[2024-03-05] MEDS ORDERED: PROPOFOL IV EMULSION 10 MG/ML 20 ML VIAL IV ONE (12:12)
--- NOTE | 2024-03-05 13:08 | History & Physical Bridge Note ---
Date of Service March 05, 2024 History & Physical Bridge Note I have examined the patient, reviewed the History & Physical and in the interval since the performance of the History & Physical I have noted the following changes of clinical significance: no changes noted. OK for the planned surgery to correct the LeFort fracture
[2024-03-05] MEDS ORDERED: fentaNYL citrate PF 100 MCG/2 ML VIAL IV PRN (13:10)
[2024-03-05] MEDS ORDERED: ePHEDrine sulfate 50 MG/ML AMP IV PRN (13:10)
[2024-03-05] MEDS ORDERED: ATROPINE SULFATE 0.1 MG/ML 10ML SYR IV PRN (13:10)
[2024-03-05] MEDS ORDERED: ONDANSETRON INJ 2 MG/ML 2 ML VIAL IV PRN (13:10)
--- NOTE | 2024-03-05 13:10 | Anesthesiology Consultation ---
Date of Service March 05, 2024 Assessment & Plan Chart Review Chart Review: Acceptable Risk for Surgery and Patient NOT seen in Pre Admission Testing Consults Requested none ASA ASA4 Proposed Anesthesia Anesthesia Type: General Risk / Benefits Reviewed With: PT / POA / Parent / Guardian, Accepts Plan and Informed Consent Obtained Additional Notes discussed airway management extensively with Dr Siegel. He does need to approximate occlusion of the jaw during the surgery, but does not need to wire shut. I relayed concerns that nasal intubation was likely not possible and could be unsafe for removal even if possible. As the patient has several gaps of missing teeth, he feels that he can achieve dental occlusion intraoperatively with a small diameter oral endotracheal tube. This anesthetic approach was also discussed extensively with the patient and her son (POA) History Surgery Operation Date: 03/05/24 12:45 Proposed Procedures p Open Reduction Maillary and Nasal Fractures - Berto Siegel, DMD Height/Weight Height: 5 ft 2 in Weight: 75.7 kg Allergies Allergy/AdvReac Type Severity Reaction Status Date / Time amlodipine Allergy Intermediate Edema Verified 03/02/24 15:11 donepezil AdvReac Intermediate increased Verified 03/02/24 15:11 memory loss escitalopram AdvReac Intermediate Dizziness Verified 03/02/24 15:11 losartan AdvReac Intermediate Back pain Verified 03/02/24 15:11 -leg pain-muscle weakness-cough metoprolol AdvReac Intermediate Fatigue, Verified 03/02/24 15:11 cognitive difficulty oxycodone AdvReac Intermediate Shaking/Vom Verified 03/02/24 15:11 iting propoxyphene [From Darvon] AdvReac Intermediate Shaking/Vom Verified 03/02/24 15:11 iting sertraline [From Zoloft] AdvReac Intermediate Insomnia,ne Verified 03/02/24 15:11 rvousness Medications Home Medications Medication Instructions Recorded Confirmed Last Taken acetaminophen 650 mg 650 mg PO Q12H PRN Pain 01/15/20 03/02/24 01/10/23 tablet,extended release potassium chloride 20 mEq 20 meq PO BID 3 weeks #42 tabs 12/26/22 03/02/24 01/10/23 tablet,extended release(part/cryst) cetirizine 10 mg capsule (Zyrtec) 10 mg PO DAILY PRN Congestion 06/12/23 03/02/24 Unknown cholecalciferol (vitamin D3) 10 10 mcg PO DAILY 06/12/23 03/02/24 Unknown mcg (400 unit) capsule atorvastatin 10 mg tablet 10 mg PO QAM #90 tabs 06/18/23 03/02/24 Unknown furosemide 20 mg tablet 20 mg PO DAILY #90 tabs 06/28/23 03/02/24 Unknown duloxetine 30 mg capsule,delayed 30 mg PO DAILY #90 caps 08/01/23 03/02/24 Unknown release allopurinol 100 mg tablet 100 mg PO DAILY #90 tabs 10/22/23 03/02/24 Unknown rivaroxaban 15 mg tablet (Xarelto) 15 mg PO DAILY #30 tabs 11/05/23 03/02/24 Unknown cefdinir 300 mg capsule 300 mg PO BID 7 days #14 caps 11/29/23 03/02/24 Unknown levothyroxine 75 mcg tablet 75 mcg PO DAILY #90 tabs 12/24/23 03/02/24 Unknown carvedilol 6.25 mg tablet 6.25 mg PO BID #180 tabs 01/28/24 03/02/24 Unknown cranberry 500 mg capsule 500 mg PO DAILY 03/02/24 03/02/24 Unknown Active Medications Generic Name Dose Route Start Last Admin Trade Name Freq PRN Reason Stop Dose Admin Allopurinol 100 mg 03/03/24 09:00 03/05/24 08:24 Allopurinol 100 Mg Tab PO 04/02/24 08:59 100 mg DAILY LUIS Administration Atorvastatin Calcium 10 mg 03/03/24 09:00 03/05/24 08:24 Atorvastatin 10 Mg Tab PO 04/02/24 08:59 10 mg QAM LUIS Administration Carvedilol 6.25 mg 03/02/24 17:00 03/05/24 08:23 Carvedilol 6.25 Mg Tab PO 04/01/24 16:59 6.25 mg BIDM LUIS Administration Duloxetine HCl 30 mg 03/03/24 09:00 03/05/24 08:25 Duloxetine Hcl 30 Mg Cap PO 04/02/24 08:59 30 mg DAILY LUIS Administration Ampicillin Sodium/Sulbactam Sodium 3,000 mg in 100 mls @ 200 mls/hr 03/02/24 21:00 03/05/24 08:54 Unasyn IV 03/12/24 20:59 Infused Q12H LUIS Infusion Levothyroxine Sodium 75 mcg 03/03/24 06:30 03/05/24 06:24 Levothyroxine Sodium 75 Mcg Tablet PO 04/02/24 06:29 75 mcg DAILYBB LUIS Administration Melatonin 3 mg 03/02/24 18:51 03/02/24 20:25 Melatonin 3 Mg Tab PO 04/01/24 18:50 3 mg HS PRN Administration Sleep NPO Date Last Intake of Fluids: 03/04/24 Time Last Intake of Fluids: 23:59 Date Last Intake of Solids: 03/04/24 Time Last Intake of Solids: 23:59 Past Medical History Medical History COVID-19 (~06/27/23) Atrial tachycardia Atrial flutter Lumbar disc herniation Myofascial pain Depression Hyperlipidemia Endometritis Lumbar radiculopathy Hx of gastroesophageal reflux (GERD) Presence of pessary Insomnia Hypothyroidism Anxiety Chronic kidney disease, stage 3 (moderate) Chronic osteoarthritis Complete uterovaginal prolapse Dyslipidemia Hypertension Lumbar spinal stenosis Mild cognitive impairment Paroxysmal SVT (supraventricular tachycardia) Exercise / Class Metabolic Activity II 4-5 Yardwork/Stairs/Walk up hill Past Family History Family History Mother , age 74 Congenital absence of one kidney Coronary heart disease Heart disease Kidney disease Father , age 83 Dementia Denies family history of Ovarian cancer Prostate cancer Myocardial infarction Breast cancer Lung cancer Colorectal cancer Past Surgical History Surgical History Status post hysteroscopy (01/19/20) History of tooth extraction History of total right knee replacement History of bunionectomy of both great toes Hx of bilateral cataract extraction H/O dilation and curettage (01/19/20) Past Anesthesia History No Hx of Anesthesia Complications and No Family Hx of Anesthesia Complications History of PONV No Hx of PONV and No Hx of Motion Sickness Social History Smoking Status: Never smoker Hx Alcohol Use: Yes Alcohol type: wine alcohol intake frequency: holidays/special occasions only Hx Substance Use: No substance use type: does not use Physical Exam Vital Signs Last Vital Signs Temp 36.9 C 03/05/24 11:58 Pulse 79 03/05/24 11:58 Resp 20 03/05/24 11:58 BP 165/83 H 03/05/24 11:58 Pulse Ox 98 03/05/24 11:58 O2 Del Method Room Air 03/05/24 11:58 ENMT Mouth: + dentures (partials) Thyromental Distance: > or= 3.5 Finger Breadths Mallampati Class: II extensive bruising on face. deviated nose noted to L side. Opens jaw well and talking normally. Neck normal visual inspection Respiratory normal respiratory effort Auscultation: lungs clear to auscultation bilaterally Cardiovascular Rate/Rhythm: regular rate and regular rhythm Psychiatric Orientation: alert Testing Laboratory Results 03/05/24 05:32 03/05/24 05:32 Urine Color Yellow 03/02/24 20:30 Urine Appearance Turbid (Clear) A 03/02/24 20:30 Urine pH 5.0 (4.5-7.5) 03/02/24 20:30 Ur Specific Beaver 1.017 (1.000-1.030) 03/02/24 20:30 Urine Protein Negative (Negative) 03/02/24 20:30 Urine Glucose (UA) Negative (Negative) 03/02/24 20:30 Urine Ketones Negative (Negative) 03/02/24 20:30 Urine Nitrite Negative (Negative) 03/02/24 20:30 Ur Leukocyte Esterase 1+ (Negative) H 03/02/24 20:30 Urine WBC (Auto) 11-20 /hpf (0-5) H 03/02/24 20:30 Urine RBC (Auto) >20 /hpf (0-2) H 03/02/24 20:30 U Hyaline Cast (Auto) 6-10 /lpf (0-2) H 03/02/24 20:30 U Epithel Cells (Auto) >20 /hpf (0-2) H 03/02/24 20:30 Urine Bacteria (Auto) 4+ (None Seen) H 03/02/24 20:30 03/02/24 20:30 Urine Culture - Final Urine,Clean Catch Three types of organisms present, all high counts probable skin stan. No further identifications or sensitivities to follow.
[2024-03-05] MEDS: ceFAZolin 2000MG 2,000 MG/15 ML SYR IV ONE (13:40)
[2024-03-05] MEDS ORDERED: SUGAMMADEX SODIUM 200 MG/2 ML VIAL IV ONE (13:54)
[2024-03-05] MEDS: CHLORHEXIDINE GLUCONATE 0.12% 480 ML MT ONE (14:31)
--- NOTE | 2024-03-05 14:54 | Communication Note ---
Date of Service: March 05, 2024 ATTESTATION I also saw the patient with the resident physician and confirmed hernandez portions of the history and exam. I saw the patient this morning in her fourth lower room just prior to the planned surgery. She had no complaints. EXAM 165/83, 79, 20, 36.9, 90% on room air Pleasant. Alert. No distress appreciated. Heart rate regular Respirations nonlabored DATA Labs Hemoglobin 8.8, platelet count 224 Sodium 140, potassium 3.8, BUN 16, creatinine 1.25 Imaging Echocardiogram completed yesterday shows preserved left ventricular systolic function, mild asymmetric left ventricular hypertrophy. Left atrium is moderately dilated, right atrium is mildly dilated. IMPRESSION & PLAN Facial fractures Scheduled for the OR today She is appropriate candidate for the proposed procedure History of atrial flutter History of AVNRT Anticoagulation on hold given fall and surgery Will reassess risk/benefits of systemic anticoagulation with patient and son following surgery; there is some thought that they may not want to resume Continue Coreg 6.25 mg twice daily; although sounds as if she is getting some orthostatics, so may consider changing to 3.125 BID Additional per resident documentation
[2024-03-05] MEDS: SURGICEL ABSORB HEMOSTAT 2IN X 14IN TOP ONE (15:01)
[2024-03-05] MEDS: BUPIVACAINE/EPINEPHRINE 0.5% 1:200,000 1.8 ML CARP ONE (15:25)
[2024-03-05] MEDS: LABETALOL HCL IV 5 MG/ML 20ML IV STA (15:52)
--- NOTE | 2024-03-05 15:52 | Post Operative Brief Note ---
PG Immediate Post Op with CF Date of Surgery March 05, 2024 Pre & Post Diagnosis Operation Date: 03/05/24 12:45 Pre-Op Diagnosis: (1) LeFort II fracture (2) Fall (3) Nasal bone fractures Post-Op Diagnosis: (1) LeFort II fracture (2) Fall (3) Nasal bone fractures I identified the patient and participated in the time-out.: Yes Procedure Operation Date: 03/05/24 12:45 Actual Procedures p Open Reduction Maxillary and Nasal Fractures(Not Applicable) - Berto Siegel DMD Surgeon Berto Siegel, [facility] Track Grinder none Estimated Blood Loss 100 Findings Consistent with Post-Op Diagnosis Lefort II and Nasal bone fractures Specimens Specimen Description: No specimen per surgeon Complications none Disposition Accompanied Patient To Recovery: Yes
--- NOTE | 2024-03-05 16:12 | Anesthesiology Progress Note ---
Date of Service March 05, 2024 Anesthesia Post Procedure Vital Signs Vital Signs: Temp Pulse Pulse Pulse Resp BP BP 03/05/24 16:00 68 22 182/88 H 03/05/24 15:55 160/118 H 03/05/24 15:52 83 214/102 H 03/05/24 15:50 83 14 214/102 H 03/05/24 15:42 36.8 C 79 18 205/86 H 03/05/24 11:58 36.9 C 79 20 165/83 H 03/05/24 09:11 60 03/05/24 07:32 36.7 C 72 18 175/90 H 03/05/24 02:45 36.6 C 84 21 169/76 H 03/04/24 22:35 36.7 C 77 18 151/77 H 03/04/24 19:15 36.4 C L 64 14 127/68 Pulse Ox O2 Del Method O2 Flow Rate 03/05/24 16:00 100 Room Air 03/05/24 15:55 03/05/24 15:52 03/05/24 15:50 100 Oxymask 11 03/05/24 15:42 100 Oxymask 11 03/05/24 11:58 98 Room Air 03/05/24 09:11 03/05/24 07:32 95 Room Air 03/05/24 02:45 96 Room Air 03/04/24 22:35 96 Room Air 03/04/24 19:15 94 Room Air Pain Intensity Face: Pain Intensity: 8 Transfer of Care Handoff Completed per policy Notes Mental Status: alert / awake / arousable and participated in evaluation Patient Amnestic to Procedure: Yes Nausea / Vomiting: adequately controlled Pain: adequately controlled Airway Patency, RR, SpO2: stable & adequate BP & HR: stable & adequate (gave 10 mg iv labetalol for bp) Hydration State: stable & adequate Anesthetic Complications: no major complications apparent and Pt Satisfied with anesthetic care
[2024-03-05] MEDS: ONDANSETRON INJ 2 MG/ML 2 ML VIAL IV PRN (16:58)
[2024-03-05] MEDS: LABETALOL HCL IV 5 MG/ML 20ML IV ONE (17:31)
--- NOTE | 2024-03-05 17:50 | Hospitalist Progress Note ---
Date of Service March 05, 2024 Assessment & Plan (1) Fracture of maxillary sinus: Plan: - Continue Unasyn 3000 mg IV q6h for empiric antibiotic coverage IV acetaminophen as needed for pain/fever Elevate HOB Ice application to affected area as needed Had Oromaxillary facial surgery with Dr. Siegel today around noon, was successful per note A.m. CBC, BMP - ordered IV Tylenol for pain management with morphine 2mg or 4mg prn for associated pain level - reach out to PCP Dr. Marquez to let him know about pt's status/condition and Xarelto status (2) Epistaxis due to trauma: Plan: Hold Xarelto at least until 24hrs post-surgery, procedure was today 03/05/24 around noon Trend H&H q4h for now Patient instructed not to put anything up nose or blow nose due to bleeding risk. (3) Fall: Plan: PT/OT evaluations appreciated Fall precautions - ordered Echocardiogram for structural heart disease due to increased frequency of bouts of "dizziness" per son's history as a possible contributor for fall resulting in present facial fracture - consider decreasing carvedilol dosage as patient was found to have orthostatic hypotension during PT which may be contributing to pt's dizziness and subsequent falls (4) Atrial flutter: Plan: NSR on arrival; rate controlled Continue carvedilol If patient needs to be made n.p.o., will transition to metoprolol 2.5 mg IV q6h Hold Xarelto (above) - continue monitoring on Telemetry (5) CHI (closed head injury): Plan: CT head and neck on 03/02/24 unremarkable for intracranial pathology See above assessment and plan for maxillary sinus fracture (6) Hypertension: Plan: continue to monitor - home dose carvedilol 6.25mg BID, consider decreasing dosage due to finding of orthostatic hypotension during physical therapy - given IV labetalol during procedure today, BP remained elevated (7) Fatigue: Plan: decreased hemoglobin, 10.5 to 9.5 from 03/03 to 03/02, likely secondary to blood loss - ordered Echocardiogram for possible structural heart disease as a contributor to increasing frequency of "dizziness" per son (8) Chronic kidney disease, stage 3 (moderate): Plan: as of 03/03/24, Creatinine is 1.28 with BUN 29 - continue to monitor kidney function and electrolytes with daily CMP - continue clear liquid feeds and hydration as tolerated Plan Disposition: Admit to PCU telemetry Full code Clear liquid diet VTE PPx: SCDs (hold Xarelto in the setting of acute head trauma) Admission and Anticipated Discharge Date Admission Date: March 02, 2024 Supervising Physician Co-Signing Physician Notes Please see my attestation in the communication note of the same date. Bobbi Carpio) was seen and examined this morning while she was sitting in her wheelchair beside her son. Continues to be alert and oriented to person, place, and situation. Face still shows extensive ecchymosis below eyes, down cheeks, and down to her neck Mild nasal bleeding this morning and newly, R sclera is bloodshot but pt denies eye pain or vision deficits. Still endorses pain below her R eye but denies any other significant pain. Patient tolerating PO soft foods/fluids. Per telemetry, patient was normal sinus rhythm overnight and this morning. Patient still notes blurry vision, due to not having her glasses with her since they broke from the fall. Patient and son deny that pt had any recent fever, body aches, chills, headache, significant bleeds, loss of consciousness, numbness, tingling, or weakness. Facial fracture repair with Dr. Siegel was today around midday, successful per Dr. Siegel's and anesthesia's note. Review of Systems Review of Systems: All systems reviewed & are unremarkable except as noted in HPI & below Physical Exam Constitutional: WD/WN, vitals as above well developed and well nourished Eyes: PERRL, conjunctivae normal, anicteric sclerae EOM intact bilaterally ENMT: Nose: + epistaxis, + facial exam abnormality, + maxillary instability, + facial crepitus and + facial tenderness Respiratory: normal respiratory effort, lungs clear to auscultation Cardiovascular: RRR, no murmur, no edema Chest (Breasts): Breast: + abnormal palpation of breast Musculoskeletal: no cyanosis or clubbing, extremities motor strength 5/5 Skin: no rashes, warm and dry Psychiatric: A+Ox3, euthymic affect Apperance: appropriately groomed Eye Contact: good eye contact Results & Data Results & Data Vital Signs (Past 12 Hours) Vital Signs Temp Pulse Pulse Pulse Resp BP BP 03/05/24 17:17 78 18 188/95 H 03/05/24 17:02 77 16 03/05/24 16:52 76 03/05/24 16:25 36.5 C 74 19 03/05/24 16:20 75 20 03/05/24 16:15 03/05/24 16:10 72 15 03/05/24 16:00 68 22 03/05/24 15:55 03/05/24 15:52 83 214/102 H 03/05/24 15:50 83 14 03/05/24 15:42 36.8 C 79 18 03/05/24 11:58 36.9 C 79 20 03/05/24 09:11 60 03/05/24 07:32 36.7 C 72 18 BP Pulse Ox O2 Del Method O2 Flow Rate 03/05/24 17:17 93 Room Air 03/05/24 17:02 173/102 H 93 Room Air 03/05/24 16:52 190/99 H 95 Room Air 03/05/24 16:25 199/101 H 96 Room Air 03/05/24 16:20 202/95 H 96 Room Air 03/05/24 16:15 172/101 H 03/05/24 16:10 198/100 H 95 Room Air 03/05/24 16:00 182/88 H 100 Room Air 03/05/24 15:55 160/118 H 03/05/24 15:52 03/05/24 15:50 214/102 H 100 Oxymask 11 03/05/24 15:42 205/86 H 100 Oxymask 03/05/24 11:58 165/83 H 98 Room Air 03/05/24 09:11 03/05/24 07:32 175/90 H 95 Room Air Resident Activity Tracking Resident Involvement: Resident Care Provided Care Provided: Adult Hospital Medicine (3) Fall Encounter type: initial encounter Qualified Code(s): W19.XXXA - Unspecified fall, initial encounter
[2024-03-05] MEDS ORDERED: ACETAMINOPHEN 1,000 MG/100 ML VIAL IV PRN (18:27)
[2024-03-05] MEDS ORDERED: MoRPHine SULFATE 4 MG/ML 1 ML CARP\\VIAL IV PRN (18:28)
[2024-03-05] MEDS: ACETAMINOPHEN 1,000 MG/100 ML VIAL IV STA (20:12)
[2024-03-06 06:37] LABS: Basophils # (auto) 0.01 K/uL (0.00-0.20); Basophils % (auto) 0.1 %; Hematocrit (blood only) 28.1 % (37.0-47.0); Hemoglobin 9.3 g/dl (12.0-16.0); Immature Granulocytes # (auto) 0.04 K/uL (0.01-0.20); Immature Granulocytes % (auto) 0.4 %; Lymphocytes # (auto) 0.91 K/uL (1.20-3.40); Lymphocytes % (auto) 8.5 %; Mean Corpuscular Hemoglobin 31.7 pg (25.0-34.0); Mean Corpuscular Hgb Conc 33.1 g/dL (32.0-36.0); Mean Corpuscular Volume 95.9 fL (80.0-100.0); Monocytes # (auto) 0.63 K/uL (0.11-0.59); Monocytes % (auto) 5.9 %; Neutrophils # (auto) 9.16 K/uL (1.40-6.50); Neutrophils % (auto) 85.1 %; Platelet Count 254 K/uL (130-400); RDW Coefficient of Variation 13.7 % (11.5-14.5); RDW Standard Deviation 47.3 fL (36.4-46.3); Red Blood Count 2.93 M/uL (4.20-5.40); White Blood Count 10.75 K/ul (4.8-10.8)
[2024-03-06 07:03] LABS: BUN Creatinine Ratio 15.4 (10-20); Calcium 9.2 mg/dl (8.6-10.3); Creatinine Clr Calc Pharmacy 28.6 ml/min; Est GFR (African American) 42.4 ml/min; Est GFR (Non-African American) 36.6 ml/min; Potassium 4.5 mmol/L (3.5-5.1)
[2024-03-06] MEDS: MoRPHine SULFATE 2 MG/ML CARP IV PRN (09:35)
--- NOTE | 2024-03-06 12:48 | Oral/Maxillofacial Progress Nt ---
Date of Service March 06, 2024 Assessment & Plan Admission and Anticipated Discharge Date Admission Date: March 02, 2024 Subjective Fracture surgery post op note at 24 hours Excellent result, the midface LeFort II fracture is very stable, nose looks good, packing still in place-will remove tomorrow PM ROM improving Tissue tone, gingival tissue--excellent Occlusion very stable with a reproducible bite. No TMJ issues-pain, nose, pop. Minimal nasal oozing Facial/Nasal alignment excellent Reviewed post op care--diet, oral care, activities upon discharge tomorrow Overall excellent result from recent LeFort II fracture repair. I will remove the nasal splint and packing tomorrow afternoon in preparation to d/[facility] to [facility]. Results & Data Vital Signs (Past 12 Hours) Vital Signs Temp Pulse Resp BP Pulse Ox O2 Del Method 03/06/24 11:34 36.9 C 77 17 158/84 H 95 Room Air 03/06/24 07:33 36.7 C 85 20 185/83 H 93 Room Air 03/06/24 02:40 84 14 170/82 H 92 Room Air PG Care Time/CCT Total # of Minutes Spent Total Time Spent with Patient: Total time spent is greater than 50% in coordination of care (as documented) at patient's floor/unit and/or counseling patient: Coding Level of Care Code None
[2024-03-06] MEDS ORDERED: OXYMETAZOLINE 0.05% 30 ML BTL PRN (13:38)
--- NOTE | 2024-03-06 14:52 | Hospitalist Progress Note ---
Date of Service March 06, 2024 Assessment & Plan (1) Fracture of maxillary sinus: Plan: successful surgery yesterday with Dr. Siegel - Unasyn 3000 mg IV q6h for empiric antibiotic coverage - Keep HOB elevated - Ice application to affected area as needed - morphine 2mg or 4mg prn for associated pain level - reach out to PCP Dr. Marquez to let him know about pt's status/condition and Xarelto status Dr. Siegel to remove the nasal splint and packing tomorrow afternoon in preparation to d/c to [facility]. (2) Epistaxis due to trauma: Plan: Hold Xarelto at least until 24hrs post-surgery, procedure was 03/05/24 around noon Trend H&H q4h for now Dr. Siegel to remove the nasal splint and packing tomorrow afternoon in preparation to d/c to [facility]. (3) Fall: Plan: PT/OT evaluations appreciated Fall precautions - Echocardiogram 03/04/24 for bouts of "dizziness" per son's history as a possible contributor for fall resulting in present facial fracture: see Diagnostic Findings section for results - consider decreasing carvedilol dosage as patient was found to have orthostatic hypotension during PT which may be contributing to pt's dizziness and subsequent falls (4) Hypertension: Plan: continue to monitor - home dose carvedilol 6.25mg BID, consider decreasing dosage due to finding of orthostatic hypotension during physical therapy - given IV labetalol during procedure today, BP remained elevated - furosemide 20mg qAM restarted for BP systolic >200 (5) Atrial flutter: Plan: NSR on arrival; contniues to be rate controlled Continue carvedilol If patient needs to be made n.p.o., will transition to metoprolol 2.5 mg IV q6h Hold Xarelto (above) - continue monitoring on Telemetry (6) CHI (closed head injury): Plan: CT head and neck on 03/02/24 unremarkable for intracranial pathology See above assessment and plan for maxillary sinus fracture (7) Fatigue: Plan: decreased hemoglobin, 10.5 to 9.5 from 03/03 to 03/02, likely secondary to blood loss - Echocardiogram for possible structural heart disease as a contributor to increasing frequency of "dizziness" per son: see Diagnostic Findings section for results (8) Chronic kidney disease, stage 3 (moderate): Plan: as of 03/03/24, Creatinine is 1.28 with BUN 29 - continue to monitor kidney function and electrolytes with daily CMP - continue clear liquid feeds and hydration as tolerated Plan Disposition: Admit to PCU telemetry Full code Clear liquid diet VTE PPx: SCDs (hold Xarelto in the setting of acute head trauma) Admission and Anticipated Discharge Date Admission Date: March 02, 2024 Supervising Physician Co-Signing Physician Notes ATTESTATION I also saw the patient with the resident physician and confirmed hernandez portions of the history and exam. Actually doing well postop. Looking forward to getting the packing out but pain reasonably well-controlled. EXAM Blood pressures variable, on the higher end of what we like to see; unsure how much of this is related to discomfort/pain Pleasant. Alert. No distress appreciated. Heart rate regular Respirations nonlabored DATA Labs Hemoglobin 9.3, platelet count 254 BUN 20, creatinine 1.3 IMPRESSION & PLAN Facial fractures, Postop day #1 Packing to be removed tomorrow Will need to coordinate with surgery resumption of anticoagulation History of atrial flutter History of AVNRT Anticoagulation on hold given fall and surgery Will reassess risk/benefits of systemic anticoagulation with patient and son following surgery; there is some thought that they may not want to resume Continue Coreg 6.25 mg twice daily Hypertension with elevated blood pressures Outpatient blood pressures look to be around 140 systolic on average Acute elevation during hospitalization not unreasonable, although current systolic reading on the higher edge of where we would like her to be She is asymptomatic fortunately Resume her outpatient Lasix today; she may has some benefit in terms of systolic reduction Continue to monitor Subjective Saw patient at bedside this morning, was in alert and oriented, in good spirits and no significant pain which she noted 2/10. Nasal splint and with nasal packing and gauze below nose in place. Patient taking sips of water intermittently and taking medication with applesauce, able to swallow in small amounts without difficulty. Dr. Siegel to remove the nasal splint and packing tomorrow afternoon in preparation to d/c to [facility]. Review of Systems Review of Systems: All systems reviewed & are unremarkable except as noted in HPI & below Physical Exam Constitutional: WD/WN, vitals as above well developed and well nourished Eyes: PERRL, conjunctivae normal, anicteric sclerae EOM intact bilaterally ENMT: Nose: + epistaxis, + facial exam abnormality and + facial tenderness Respiratory: normal respiratory effort, lungs clear to auscultation Cardiovascular: RRR, no murmur, no edema Musculoskeletal: no cyanosis or clubbing, extremities motor strength 5/5 Skin: no rashes, warm and dry Psychiatric: A+Ox3, euthymic affect Apperance: appropriately groomed Eye Contact: good eye contact Results & Data Results & Data Vital Signs (Past 12 Hours) Vital Signs Temp Pulse Resp BP Pulse Ox O2 Del Method 03/06/24 11:34 36.9 C 77 17 158/84 H 95 Room Air 03/06/24 07:33 36.7 C 85 20 185/83 H 93 Room Air Diagnostic Findings Echocardiogram 03/04/24: - mild LV hypertrophy - LA moderately dilated - RA mildly dilated - moderate mitral annular calcification - RV systolic pressure elev at 30-40mmHg Resident Activity Tracking Resident Involvement: Resident Care Provided Care Provided: Adult Hospital Medicine (3) Fall Encounter type: initial encounter Qualified Code(s): W19.XXXA - Unspecified fall, initial encounter
[2024-03-06] MEDS: FUROSEMIDE 20 MG TAB PO SCH (17:13)
--- NOTE | 2024-03-07 07:20 | Discharge Summary ---
Date of Service March 07, 2024 Admission HPI Per Admitting Provider Elliott is an 89-year-old female with PMH of HTN, CKD stage III, hypothyroidism, anxiety, dyslipidemia, GERD, paroxysmal SVTs, dementia, atrial flutter (on Xarelto), and lumbar radiculopathy. She presented via EMS on 03/02 after an unwitnessed fall at home. Patient was ambulating to the bathroom to get ready to go to the hospital to visit her (who recently was admitted for a hip fracture). She does not remember falling, but does report she was feeling dizzy, lightheaded, and weak this morning. She ambulates with a cane at baseline. She denies passing out, but does not remember how she fell exactly. It is believed she struck her face on her shower chair. Son was present at home and heard a "thud". Patient is currently on Xarelto; last took it last night on 03/01. She reports she took her regular morning medicine today; no recent change in medication; she reports she manages her own medicine at home. She denies any facial pain at present, but does feel like she needs to blow her nose, and like she has facial "pressure". She does not use supplemental oxygen at baseline or CPAP at night. She denies smoking, tobacco use, recent alcohol use. Patient is hypertensive at 208/83 at time of admission; vitals otherwise stable. ED course: Acetaminophen 1000 mg IV TXA 10% 500 mg Afrin 0.05% spray Lidocaine 4.5 cm anterior nasal balloon Zofran 4 mg IV ROS: Patient endorses sensation of face fullness, blurry vision, dizziness/lightheadedness, confusion, mild SOB at rest, hemoptysis, and increased weakness in the legs. Patient denies fever, chills, night-sweats, difficulty swallowing, neck pain, chest pain, chest palpitations, pleuritic CP, abdominal pain, N/V/D, changes in urinary/bowel habits, burning with urination, or numbness/tingling in the arms or legs. Spoke with patient's son (Tarik) at bedside and provided update regarding admission status. Patient's son confirms that the patient's CODE STATUS is DNR/DNI, and that there is paperwork to this effect (POLST form). Patient's son also reports that it was an unwitnessed fall. The patient got up and stumbled getting to the bathroom, but this was not new for her. She has stumbled and had difficulty with ambulation in the past. 1 son found her in the bathroom after hearing her go down, there was no witnessed syncope, seizure activity, or strokelike symptoms before or after the event. He believes that she fell for golden and struck her face on the shower chair. Admission Exam Per Admitting Provider Physical Exam on 03/02/24: General: no acute distress; pleasant affect; non-toxic appearing; frail appearing; cooperative; SpO2 100% on RA HEENT: Purple bruising, edema, and ecchymosis periorbitally around both eyes (worse on the right side); 1 cm lesion noted on the bridge of the nose; sclerae erythematous; trickle blood noted in the right nasal pathway, left nasal passageway is occluded/not patent (balloon in place); PERRLA with EOMs intact Neck: supple; no lymphadenopathy; trachea midline; patient demonstrates ability to shrug shoulders against resistance and rotate neck bilaterally without pain/deficits; airway patent Skin: warm, dry without signs of tenting; no cyanosis; no rashes, bruising, lesions, or erythema noted CV: chest wall NTP; RRR; S1/S2 normal; no murmurs/rubs/gallops; pulses intact and symmetric at radial, DP, and PT Lungs: no acute respiratory distress; symmetrical chest wall expansion; clear breath sounds across all lung reyes w/o adventitious sounds; no wheezing ABD: Soft, NTP; BS present; no rebound/guarding; no distention MSK: no tics or fasciculations; no edema noted in the LEs b/l, nonerythematous Neuro: A&O to name//location/purpose in the hospital; not oriented to the month; normal mood and affect; fluent speech; no focal deficits; sensation grossly intact and symmetric in lower extremities bilaterally Principal Diagnosis maxillary sinus fracture, LeFort type II Discharge Exam Constitutional WD/WN, vitals as above well developed and well nourished Eyes PERRL, conjunctivae normal, anicteric sclerae EOM intact bilaterally ENMT Nose: + facial exam abnormality and + facial tenderness Mouth: + dentures (partials) Mallampati Class: II ecchymosis below and around eyes, R>L extending down cheeks and neck. - crepitus resolved dry blood visualized around nares, no active bleeding on exam Neck normal visual inspection Respiratory normal respiratory effort, lungs clear to auscultation normal respiratory effort Auscultation: lungs clear to auscultation bilaterally Cardiovascular RRR, no murmur, no edema Rate/Rhythm: regular rate and regular rhythm Musculoskeletal no cyanosis or clubbing, extremities motor strength 5/5 Skin no rashes, warm and dry Psychiatric A+Ox3, euthymic affect Orientation: alert Apperance: appropriately groomed Eye Contact: good eye contact Discharge Data Allergies Allergy/AdvReac Type Severity Reaction Status Date / Time amlodipine Allergy Intermediate Edema Verified 03/02/24 15:11 donepezil AdvReac Intermediate increased Verified 03/02/24 15:11 memory loss escitalopram AdvReac Intermediate Dizziness Verified 03/02/24 15:11 losartan AdvReac Intermediate Back pain Verified 03/02/24 15:11 -leg pain-muscle weakness-cough metoprolol AdvReac Intermediate Fatigue, Verified 03/02/24 15:11 cognitive difficulty oxycodone AdvReac Intermediate Shaking/Vom Verified 03/02/24 15:11 iting propoxyphene [From Darvon] AdvReac Intermediate Shaking/Vom Verified 03/02/24 15:11 iting sertraline [From Zoloft] AdvReac Intermediate Insomnia,ne Verified 03/02/24 15:11 rvousness Consultations 03/02/24 14:36 ED Decision to Admit Stat Procedures Performed Operation Date: 03/05/24 12:45 Actual Procedures p Open Reduction Maxillary and Nasal Fractures(Not Applicable) - Berto Siegel, DMD Ordered Studies 03/02/24 12:52 CT cervical spine wo con Stat CT facial bones wo con Stat CT head/brain wo con Stat Hospital Course (1) Fracture of maxillary sinus: successful surgery on 03/05/[address] Berto Siegel - has been on Unasyn 3000 mg IV q6h for empiric antibiotic coverage during hospital stay - kept HOB elevated - Ice application to affected area as needed - has had morphine 2mg or 4mg prn for 1-5 and 6-10 pain, respectively - patient was mainly having pain levels under 5 post-procedure 03/07/24: Dr. Siegel removed nasal splint and packing today in preparation for d/c to [facility]. - prescribed augmentin (amox-clav) oral suspension 400mg, 57mg/5mL 10mL BID for [address] of Unasyn to prevent infection - to follow up with Dr. Siegel in outpatient office on Sunday03/11/24 for post-discharge checkup and discuss Xarelto status - to follow up with her primary care provider, Dr. Marquez (2) Epistaxis due to trauma: Xarelto held from 03/02/24 due to bleeding risk after fall resulting in facial fracture - bleeding well-controlled for duration of stay post-procedure on 03/05/24, patient had nasal packing with nasal splint which prevented bleeding 03/07/24: nasal packing and splint removed by Dr. Siegel, no active bleeding but significant clotting was removed. (3) Fall: PT/OT evaluations appreciated Fall precautions - Echocardiogram 03/04/24 for bouts of "dizziness" per son's history as a possible contributor for fall resulting in present facial fracture: see Diagnostic Findings section for results - consider decreasing carvedilol dosage as patient was found to have orthostatic hypotension during PT which may be contributing to pt's dizziness and subsequent falls (4) Hypertension: continue to monitor - home dose carvedilol 6.25mg BID - given IV labetalol during procedure today, BP remained elevated remained systolic 150s to 200 and diastolic 70s to 100 for duration, transient times of systolic down to 120s 03/05/24: furosemide 20mg qAM restarted for BP systolic >200, patient has refused 03/07/24: received 20mg Lasix this morning in preparation for discharge (5) Atrial flutter: NSR on arrival; contniues to be rate controlled Continued carvedilol at home dose Hold Xarelto (above) - monitored on telemetry throughout stay, was in normal sinus rhythm for duration (6) CHI (closed head injury): CT head and neck on 03/02/24 unremarkable for intracranial pathology See above assessment and plan for maxillary sinus fracture (7) Fatigue: decreased hemoglobin, 10.5 to 9.5 from 03/02 to 03/03, likely secondary to blood loss 03/04/24: had Echocardiogram for possible structural heart disease as a contributor to increasing frequency of "dizziness" per son: - LV systolic function normal - mild asymmetric LV hypertrophy - LA moderately dilated, RA mildly dilated - moderate mitral annular calcification - RV systolic pressure elevated at 30-40mmHg (8) Chronic kidney disease, stage 3 (moderate): as of 03/03/24, Creatinine is 1.28 with BUN 29 - kidney function and electrolytes monitored with daily CMP - clear liquids and hydration as tolerated 03/07/24: Cr 1.19, BUN 22, GFR 40.7 Plan Disposition: Admit to PCU telemetry Full code Clear liquid diet VTE PPx: SCDs (hold Xarelto in the setting of acute head trauma) Total Time Total Time Spent Total Time Spent (In Minutes): 38 Total Time Includes: Examination of the Patient, Discharge Planning and Medication Reconciliation Discharge Plan Discharge Items Patient Disposition: Transfer Inpatient Rehab Fac Reason For Visit: FALL, FACIAL FRACTURE Discharge Diagnosis: type II LeFort fracture of maxillary sinus Condition on Discharge: Good Health Concerns: - currently holding Xarelto for paroxysmal AFlutter/Afib due to facial surgery - mild swallow deficit post-procedure Activity: As commented below Activity Comment: as per [facility] protocol Lifting: Gradually increase as tolerated Bathing: No limitations Bathing Comment: as per protocol as [facility] Exercise/Sports: None Exercise Comment: as per [facility] Weightbearing: Full weightbearing Non-emergency contact: Surgeon Call non-emergency contact if: you have any medication questions, your symptoms worsen, your pain is not controlled, your pain is worsening, your wound has increased redness, your wound has increased drainage and your wound pain has increased Follow-up/Referrals: Tristian Marquez CRNP [Primary Care Provider] - Berto Siegel DMD [Physician] - Dietitian Info: full liquid and soft diet is the diet of choice, no chewy foods Diet: Full liquid, Clear liquid and Other - See Diet Comment Diet Texture: Pureed (blended smooth) Liquid Consistency: Pudding thick Diet Comment: see notes above Addtl Attending Provider Instructions: GENERAL POST-OPERATIVE INSTRUCTIONS FOR PATIENTS HAVING [facility] SURGERY POST-OP INSTRUCTIONS Follow up with Dr Siegel March 11 at 10 am BLEEDING: Will be under control by the time you leave our operating room. Some oozing or blood-tinged saliva may persist for up to 24 hours. Should excessive bleeding occur call the office or Dr. Siegel. Expect nasal oozing for a few days. This also will occur after getting up or after you shower. PAIN: Is best controlled by the medications recommended. They are most effective when taken before the local anesthesia diminishes and normal sensation returns to the area. Do not take pain pills on an empty stomach. Narcotic pain medication such as Vicodin or Percocet may cause nausea, vomiting, drowsiness, dizziness, itching or constipation. If these side effects occur, discontinue the medication. You may take an alternative over the counter pain medication (Tylenol or Motrin) as necessary or call our office for assistance. SWELLING: May occur immediately and increase gradually over 24-48 hours. Swelling from the surgical procedure will maximize at 48-72 hours. Ice packs applied externally to the area at 20 minute intervals throughout the day of surgery may help control swelling, but only use them if advised to by our office. Sleeping with the head of bed elevated above the level of the heart for the first two post-operative nights may tend to lessen swelling. NAUSEA: May result from a general anesthetic or the drugs prescribed for pain. Drinking a small glass of a carbonated beverage will generally control mild nausea. If not controlled, call the office. The Zofran ODT may be used as instructed. DIET: Soft foods and liquids Non-chewy foods are okay ORAL HYGIENE: Should not be neglected. [place] your teeth as usual and rinse with warm salt water after each meal beginning gently the night of surgery. Use Peridex twice a day. Other mouth rinses can be used to keep your mouth clean. ACTIVITY: as per Rehab FEVER: After surgery it is normal for the body temperature to be slightly elevated for 24 hours. SIDE EFFECTS: Such as an ear ache, temporary ache of adjacent teeth, restricted mouth opening, stretching or cracking at the corners of the mouth or discoloration of the skin may occur postoperatively. These are temporary conditions that will improve as healing progresses. As a result of the surgery your bite will feel off, this is normal. Your lower and upper lip will also feel numb as a result of the surgery; over time this will subside. EMERGENCIES: In case of profuse bleeding, uncontrolled pain, persistent nausea or abnormal elevation of temperature, if you have any questions about these instructions or your surgery please call our office or Dr. Velasquez cell phone. Our goal is to make this procedure as safe and pleasant as possible. Email Dr. Siegel---[email or web address] Phone Dr. Siegel after hours and weekends, ~~~~~~~~~~~~~~~ On the medicine side: we have held your Xarelto when you came in due to the bleeding risk at the time of the injury and during the surgery on 03/05/24. You have been receiving your home medications, except we have held Lasix (furosemide) until 03/06/24. Since you had a fall resulting in the current fracture, there is concern that your blood pressure has been dropping too much when you get up from sitting and/or start moving, which can result in future bouts of dizziness and unfortunately future falls. Your resting blood pressure is rather on the high side which is why your carvedilol 6.25mg and Lasix 20mg have been helpful, but they may be contributing to your dizziness and falls. You have been prescribed Augmentin (amoxicillin-clavulante) oral suspension (liquid) 400mg, 57mg/5mL oral suspension for 10 days. Please follow up closely with your primary care provider, Dr. Marquez, to discuss whether to lower either the carvedilol or Lasix. Additionally, as noted in Dr. Berto Siegel's note, please follow up with him at your outpatient appointment next week on 03/11/24 at 10am to for checkup on your facial fracture post-surgery and to discuss going back on your Xarelto, the blood thinner for your paroxysmal AFlutter. Pending Studies at Discharge: No Stand-Alone Forms: My [facility] Skilled Items Patient informed of condition?: Yes DNR: Yes Discharge Level of Care: Acute rehab Communicable Disease: No Discharge Prognosis: Improving Lines: None Urinary Catheter: No Medications and DC Order Prescriptions: New amoxicillin-pot clavulanate 400-57 mg/5 mL suspension for reconstitution 10 ml PO BID 10 Days Qty: 200 0RF Continued potassium chloride 20 mEq tablet,ER particles/crystals 20 meq PO BID 21 Days Qty: 42 0RF Hold Instructions: Resume on 01/15/23. until sunday atorvastatin 10 mg tablet 10 mg PO QAM Qty: 90 3RF allopurinol 100 mg tablet 100 mg PO DAILY Qty: 90 1RF levothyroxine 75 mcg tablet 75 mcg PO DAILY Qty: 90 1RF carvedilol 6.25 mg tablet 6.25 mg PO BID Qty: 180 1RF Rx Instructions: must administer with a meal/food furosemide 20 mg tablet 20 mg PO DAILY Qty: 90 3RF Hold Instructions: Resume on 01/15/23. duloxetine 30 mg capsule,delayed release(DR/EC) 30 mg PO DAILY Qty: 90 2RF cholecalciferol (vitamin D3) 10 mcg (400 unit) capsule 10 mcg PO DAILY Zyrtec 10 mg capsule 10 mg PO DAILY PRN (Reason: Congestion) acetaminophen 650 mg Tablet Extended Release 650 mg PO Q12H PRN (Reason: Pain) cranberry 500 mg Capsule 500 mg PO DAILY Rx Instructions: administer with meals Held Xarelto 15 mg tablet 15 mg PO DAILY Qty: 30 2RF Hold Instructions: Resume on 03/11/24. hold until further discussion with Dr. Siegel at outpatient appointment Rx Instructions: must administer with evening meal Discontinued cefdinir 300 mg capsule 300 mg PO BID 7 Days Qty: 14 0RF Discharge Orders: Discharge Order (Routine); Ordered 03/07/24 Ordered By: Moris Gómez/Other Patient Handouts: Facial Fracture, How Bones Heal, Hypertension Dc, Fall Prevention Assessing Risk Admission Data Admit Date/Time: 03/02/24 15:10 Attending Provider: Ria Burger Admit Provider: Jorge Arauz Primary Care Provider: Tristian Marquez Other Providers: Brian Yates Morrison; Jorge Arauz Other Interventions: Discharge Summary Assessment (RN) Last Done: 03/07/24 16:26 Supervising Physician Co-Signing Physician Notes I personally examined the patient and verified hernandez points of history and exam, discussed case, and agree with decision making and plan documented by Dr. Mesa. Patient postop day 2 status post open reduction LeFort II and nasal fractures. Patient appears comfortable, diffuse bruising of face and anterior neck, nasal packing in place, lungs clear b/l to auscultation, regular rate and rhythm. Packing removed successfully today, clots removed via suction, no signs of bleeding. Xarelto will remove remain on hold at present until patient follows up outpatient with surgeon. Patient deemed stable for transfer to [facility], her son will transfer her there, her is currently there so they will be together. Resident Activity Tracking Resident Involvement: Resident Care Provided Care Provided: Adult Hospital Medicine
[2024-03-07 08:45] LABS: Basophils # (auto) 0.01 K/uL (0.00-0.20); Basophils % (auto) 0.1 %; Hematocrit (blood only) 25.2 % (37.0-47.0); Hemoglobin 8.4 g/dl (12.0-16.0); Immature Granulocytes # (auto) 0.05 K/uL (0.01-0.20); Immature Granulocytes % (auto) 0.4 %; Lymphocytes # (auto) 1.61 K/uL (1.20-3.40); Lymphocytes % (auto) 12.6 %; Mean Corpuscular Hemoglobin 31.8 pg (25.0-34.0); Mean Corpuscular Hgb Conc 33.3 g/dL (32.0-36.0); Mean Corpuscular Volume 95.5 fL (80.0-100.0); Monocytes # (auto) 1.25 K/uL (0.11-0.59); Monocytes % (auto) 9.8 %; Neutrophils # (auto) 9.82 K/uL (1.40-6.50); Neutrophils % (auto) 77.1 %; Platelet Count 263 K/uL (130-400); RDW Coefficient of Variation 14.1 % (11.5-14.5); Red Blood Count 2.64 M/uL (4.20-5.40); White Blood Count 12.74 K/ul (4.8-10.8)
[2024-03-07 08:49] LABS: BUN Creatinine Ratio 18.5 (10-20); Calcium 9.4 mg/dl (8.6-10.3); Est GFR (African American) 47.2 ml/min; Est GFR (Non-African American) 40.7 ml/min; Potassium 4.3 mmol/L (3.5-5.1)
--- NOTE | 2024-03-07 09:29 | Hospitalist Progress Note ---
Date of Service March 07, 2024 Assessment & Plan (1) Fracture of maxillary sinus: Plan: successful surgery yesterday with Dr. Siegel - Unasyn 3000 mg IV q6h for empiric antibiotic coverage - Keep HOB elevated - Ice application to affected area as needed - morphine 2mg or 4mg prn for associated pain level - reach out to PCP Dr. Marquez to let him know about pt's status/condition and Xarelto status Dr. Siegel to remove the nasal splint and packing tomorrow afternoon [facility]. (2) Epistaxis due to trauma: Plan: Hold Xarelto at least until 24hrs post-surgery, procedure was 03/05/24 around noon Trend H&H q4h for now Dr. Siegel to remove the nasal splint and packing tomorrow afternoon in preparation to d/c to [facility]. (3) Fall: Plan: PT/OT evaluations appreciated Fall precautions - Echocardiogram 03/04/24 for bouts of "dizziness" per son's history as a possible contributor for fall resulting in present facial fracture: see Diagnostic Findings section for results - consider decreasing carvedilol dosage as patient was found to have orthostatic hypotension during PT which may be contributing to pt's dizziness and subsequent falls (4) Hypertension: Plan: continue to monitor - home dose carvedilol 6.25mg BID, consider decreasing dosage due to finding of orthostatic hypotension during physical therapy - given IV labetalol during procedure today, BP remained elevated - furosemide 20mg qAM restarted for BP systolic >200 (5) Atrial flutter: Plan: NSR on arrival; contniues to be rate controlled Continue carvedilol If patient needs to be made n.p.o., will transition to metoprolol 2.5 mg IV q6h Hold Xarelto (above) - continue monitoring on Telemetry (6) CHI (closed head injury): Plan: CT head and neck on 03/02/24 unremarkable for intracranial pathology See above assessment and plan for maxillary sinus fracture (7) Fatigue: Plan: decreased hemoglobin, 10.5 to 9.5 from 03/03 to 03/02, likely secondary to blood loss - Echocardiogram for possible structural heart disease as a contributor to increasing frequency of "dizziness" per son: see Diagnostic Findings section for results (8) Chronic kidney disease, stage 3 (moderate): Plan: as of 03/03/24, Creatinine is 1.28 with BUN 29 - continue to monitor kidney function and electrolytes with daily CMP - continue clear liquid feeds and hydration as tolerated Plan Disposition: Admit to PCU telemetry Full code Clear liquid diet VTE PPx: SCDs (hold Xarelto in the setting of acute head trauma) Admission and Anticipated Discharge Date Admission Date: March 02, 2024 Subjective Saw patient at bedside this morning, was in alert and oriented, in good spirits and no significant pain which she noted 2/10. Nasal splint and with nasal packing and gauze below nose in place. Patient taking sips of water intermittently and taking medication with applesauce, able to swallow in small amounts without difficulty. Dr. Siegel to remove the nasal splint and packing tomorrow afternoon in preparation to d/c to [facility]. Physical Exam Constitutional: WD/WN, vitals as above well developed and well nourished Eyes: PERRL, conjunctivae normal, anicteric sclerae EOM intact bilaterally ENMT: Nose: + epistaxis, + facial exam abnormality, + maxillary instability, + facial crepitus and + facial tenderness Respiratory: normal respiratory effort, lungs clear to auscultation Cardiovascular: RRR, no murmur, no edema Chest (Breasts): Breast: + abnormal palpation of breast Musculoskeletal: no cyanosis or clubbing, extremities motor strength 5/5 Skin: no rashes, warm and dry Psychiatric: A+Ox3, euthymic affect Apperance: appropriately groomed Eye Contact: good eye contact Results & Data Results & Data Vital Signs (Past 12 Hours) Vital Signs Temp Pulse Pulse Pulse Resp BP Pulse Ox 03/07/24 07:35 36.7 C 67 20 176/92 H 91 03/07/24 06:36 65 176/84 H 03/07/24 02:40 36.6 C 70 22 185/76 H 95 03/07/24 00:00 70 03/06/24 23:08 36.5 C 73 20 166/77 H 94 O2 Del Method 03/07/24 07:35 Room Air 03/07/24 06:36 03/07/24 02:40 Room Air 03/07/24 00:00 03/06/24 23:08 Room Air (3) Fall Encounter type: initial encounter Qualified Code(s): W19.XXXA - Unspecified fall, initial encounter
[2024-03-07 11:30] VITALS: RESP 19; TEMP 97.7; O2SAT 93
--- NOTE | 2024-03-07 14:24 | Oral/Maxillofacial Progress Nt ---
Date of Service March 07, 2024 Assessment & Plan Admission and Anticipated Discharge Date Admission Date: March 02, 2024 Subjective Mrs wu continues to do well. her occlusion is excellent and the LeFort II fracture is very stable. I removed the nasal splint and nasal packs- I suctioned out the nose and removed clots. Sitting in the chair w/o any nasal oozing. Can use a straw and is taking clear liquids well. OK for discharge to [place]. Hold off Xarelto for now-need to allow the irritated nasal mucosa time to heal. Diet--liquid as tolerated, Ensure etc, advance as tolerated to soft when able. I will see her Sunday in my office for follow up and consider restating her back on the Xarelto. Results & Data Vital Signs (Past 12 Hours) Vital Signs Temp Pulse Pulse Pulse Resp BP Pulse Ox 03/07/24 11:28 36.5 C 62 19 170/87 H 93 03/07/24 08:00 70 03/07/24 07:35 36.7 C 67 20 176/92 H 91 03/07/24 06:36 65 176/84 H 03/07/24 02:40 36.6 C 70 22 185/76 H 95 O2 Del Method 03/07/24 11:28 Room Air 03/07/24 08:00 03/07/24 07:35 Room Air 03/07/24 06:36 03/07/24 02:40 Room Air PG Care Time/CCT Total # of Minutes Spent Total Time Spent with Patient: Total time spent is greater than 50% in coordination of care (as documented) at patient's floor/unit and/or counseling patient: Coding Level of Care Code 10503 SUB INP/OBS CARE 2/35MIN
[2024-03-07] MEDS ORDERED: CHLORHEXIDINE GLUCONATE 0.12% 480 ML MT PRN (14:33)
[2024-03-07 16:29] VITALS: BP 148/90; PULSE 62
--- NOTE | 2024-03-26 20:03 | Operative Report ---
PG Post Operative Report Pre & Post Diagnosis Operation Date: 03/05/24 12:45 Pre-Op Diagnosis: (1) LeFort II fracture (2) Fall (3) Nasal bone fractures Post-Op Diagnosis: (1) LeFort II fracture (2) Fall (3) Nasal bone fractures I identified the patient and participated in the time-out.: Yes Procedure Operation Date: 03/05/24 12:45 Actual Procedures p Open Reduction Maxillary and Nasal Fractures(Not Applicable) - Berto Siegel DMD Surgeon Berto Siegel DMD Hearing Aid Mechanic none Estimated Blood Loss 100 Findings Consistent with Post-Op Diagnosis Specimens none Drains none Anesthesia Type General Complications none Disposition Accompanied Patient To Recovery: Yes Indications Lefort II and nasal fractures Description of Procedure Pre-Op Diagnosis: Lefort II fracture, Nasal bones, closed fracture: Post-Op Diagnosis: Lefort II fracture, Nasal bones, closed fracture: Diagnosis ICD 10 CPT Lefort II fracture, initial encounter for open fracture S02.411B 13346 Nasal bones, closed fracture initial encounter for closed fracture S02.2XXA 76004 p Open Reduction Internal Fixation of Maxillary (Not Applicable) - Berto Siegel DMD s Closed Reduction Nasal Fracture(Not Applicable) - Berto Siegel DMD Surgeon Berto Siegel DMD Diagnosis ICD 10 CPT Lefort II fracture, initial encounter for open fracture S02.411B 81787 Nasal bones, closed fracture initial encounter for closed fracture S02.2XXA 89836 OPERATION IN DETAIL: After this patient was cleared to undergo general, The patient was placed under general anesthesia via a oral tracheal intubation. This was a very difficult intubation for the anesthesia department. Due to many missing teeth we were able to use an oral tube and still obtain adequate fixation of the upper and lower jaws. After an appropriate time-out was taken to ensure that we had Elliott Culp was in our operating room with the proper equipment. After everyone agreed, the operation began. The patient was deeply anesthetized and the tubes were secured. The patient was prepped and draped in the usual manner. Given the nature of the fracture, an open reduction approach will be used for both the Lefort II and closed for the Nasal fracture Open Reduction of the Maxillary LeFort II fracture CPT 45297 I turned my attention now to the fractured maxilla. This patient has a classic LeFort II fracture with separation in the classic LeFort II fashion, in addition there was an isolated Nasal bone fracture.Local anesthesia in the form of Marcaine with a vasoconstrictor, The maxillary segment was fractured resulting in a posterior displacement of the maxilla with open bite. There was also a fracture involving the right lateral sinus well with multi comminutions. It extended across the nasal frontal junction. To accomplish the reduction of thisLe Fort II a maxillary osteotomy incision of the soft tissue was carried out. An electrocautery instrument was used to make an incision from the 1st bicuspid area on the right side across the midline to the opposite bicuspid area. The tissues reflected in the usual manner to expose the mucoperiosteal tissue and to get good exposure of the anterior nasal spine, the roots of the maxillary anterior and posterior teeth and the piriform rim. In addition I was able to get good visualization of the left posterior maxilla and noted the the buttress was a clean fracture and would act a stable posterior vertical support and starting point. The piriform rims were also stable and with digital manipulations I was able to line of these stable bone area to start the plate stabilization of the maxilla. Once the tissue was was reflected I was able to get a good idea of the fracture anatomy and density of the bone to plan the direct fixation process. I was able to then reflect posteriorly to get good access to the pterygoid plate areas. I then spent a lot of time dissecting superior to ensure that we had good visualization of the stable bone. Once I was able to reduce the LeFort II fracture I had excellent alignment of the fracture sites. To establish a stable occlusion I was able to place temporary wire fixation loops on the upper and lower teeth. Once I placed the upper and lower jaws in position I was able to line up the Lefort II fracture. Starting posterior I was able to bend bone plates and placed them with fixation screws. Once I was able to achieve superior stability of the fractured left segment. I was now able to plate the right piriform rim and then the left. The right posterior fracture was very comminuted and required a long plate from stable bone to the buttress. Now the maxilla was very stable and appeared to be in true anatomic position. I now adapted another plate across stable bone on the right side to complete the direct fixation. Once this was done the stability of the LeFort fracture was excellent. I irrigated the maxillary sinuses of any debris and/or polyps that were noted. Hemostasis was in good control.I noted that the maxilla was now positioned in its natural position. The hemostasis was in control and all bony margins were s table and in excellent position. I now removed the fixation and noted that I had a very stable maxilla and a reproducible occlusion. After irrigation I flushed the sinus and began closure of the maxilla I now started the closure of the soft tissue in the standard manner. Soft tissue closure To ensure proper closure with good anatomical form, I was able to grasp the alar cartilages on both the right and left side and then using a 3-0 Mersilene suture, I was ableto perform an alar cinch technique to ensure good positioning of the lateral alar cartilages of the nose and to establish good base anatomy of the nose. Once this was done, I made sure that the nasal septum was well positioned in the midline. Being satisfied with this, I then began the V-Y closure using 4-0 Vicryl suture of the mucosal tissue starting in the midline and then closed laterally on either side to ensure an even contouring of the tissue. When all was said and done, we had excellent closure of the soft tissue with great support of the nose. Placement of Arch Bars Upper/Lower teeth: Local anesthesia in the form of Marcaine with a vasoconstrictor, approximately 4 carpules of the local anesthesia was injected (2 in the upper and 2 in the lower gingival tissue) The Hybrid 7 hole arch bars were placed on the lower and upper jaws with 6 and 8 mm GAETANO Nick screws. It was noted that we had some slight movement between teeth # 21 and 22 where the symphyseal fracture was noted. I placed 25-gauge stainless steel wires around anterior teeth and as well as between the teeth to help stabilize the lower jaw. Given the minimal displacement of this fracture, I felt it was appropriate that a plate will not be needed. The stabilization wire with the arch bar would be enough stability. Open Reduction of the the Bilateral Condyle and symphysis mandibular fracture Given the nature of the fracture, an open reduction approach will be used to inspect the protrusion of the lingual bone plate through the mucosa. The right parasymphysis fractured was reduced with a wire between 21 and 22. This stabilized the fracture. The Hybrid Arch bars were placed as per protocol which also splinted this fracture. I now turned my attention to the protrusion of bone left lingual area. I large flap was made from the retromolar area to the midline. This lingula flap was reflected. The lingula plate was fractured and fragmented. I was able to see the fracture and was able to reduce the segment into better anatomic position. To accomplish this I had to loosen the hybrid arch bar screw and then once I established reduction and re tightened the screws -this held the fracture in a very stable position. I seems that the lingula bone (jeremy) splint off the lingual bone. A drill was used to remove some or the irregular bone as well as the jeremy. The fracture site was curetted and all granulation tissue and bone chips were removed. The bone was very thick. The tissues were very lacerated from the gross displacement of the fracture sites. The mandible with the bilateral condyle fractures had a good ROM with restrictions. After I irrigated the the lingual flap closure with a 4-0 Vicryl was achieved At this time I established jaw fixation Placement of inter-arch (dental) fixation with 24 g wire I removed the throat packs, irrigated the oral cavity and suctioned it dry and passed an OG tube. I was able to carefully place the mandible into proper inter-dental relationship with the maxilla. I will place the patient into a fixated position with 24 wire. My plan is to maintain MMF for 4 weeks then start functional elastic therapy. Closed Nasal Fracture reduction I turned my attention to the nasal bones the right nasal bone was impacted medially with a clinical depression to the side of the nose while the left was slightly bowed laterally. Now using a flat elevator I was able to apply lateral pressure while manipulating the bone intranasally to achieve an anatomic form to the left side of the nasal feature. I now turned my attention to the right side of the nasal fracture. Using the nasal elevator intranasally I was able to apply intra nasal pressure to the right depressed nasal bone in order to reposition the right side outwards. Once both sides were reduced the nose was now symmetric. The septum and columella looked to be well aligned. I was pleased with the anatomic reduction and stability of the fractures. I inspected intranasally, all the mucosal tissue were all WNL and I irrigated any clots and suctioned the throat. Bleeding was minimal but persistent. I placed the [place] splint to the nose as well as nasal packing with a Rhino Rocket. Bleeding was now well controlled and the nose had a very nice anatomic shape. Recovery Phase: At this time the sponge and instruments count was correct. The patient was allowed to recover in the usual manner and then once fully recovered moved to the recovery room. Because of the excellent stability of the maxilla intermaxillary fixation was n ot needed. Post op plans: My plan is to keep the patient on a very soft diet with a modified exercise program for 4-6 weeks I will remove the nasal splint and packing in 48--60 hours. Outcome: Transported in stable condition to post anesthesia recovery area. The patient tolerated the surgical procedure and anesthesia extremely well and I anticipate an uneventful postoperative recovery The patient was allowed to awake from the anesthesia. Once full awake the anesthesia tube was removed and the patient was taken to the recovery room with all vital sign stable. The patient tolerated the surgery very well. I will follow the patient in my office, Rx and instructions will be given upon discharge. I attest to the content of the Intraoperative Record and any orders documented therein. Any exceptions are noted below.
== END 2024-03-07 16:35 | DRG 142 ==
LOC: ED 12:32 → 4W 15:10 → SUATTDRO 15:10 → 4W 16:45